=== PATIENT | male | born 1930 | race Caucasian/White ===

== ENCOUNTER 2016-02-23 11:51 | Emergency (ER) | payer MEDICARE, MEDICAID ==
--- NOTE | 2016-02-23 12:19 | ER Document Report ---
ED General - General Mode of Arrival: Medic Information source: Patient TRAVEL OUTSIDE OF THE [place] IN LAST 30 DAYS: No - HPI Patient complains to provider of: Weakness Onset: This morning Onset/Duration: Sudden, Persistent Associated symptoms: Other - Heartburn <ROSETTA MCFARLANE - Last Filed: 02/23/16 12:19> <JODEE JOYA - Last Filed: 02/23/16 16:13> - General Chief Complaint: General Weakness Stated Complaint: WEAKNESS/DIZZY Notes: Patient is an 85-year-old male presenting to the emergency department concerned of generalized weakness onset this morning upon waking. Patient states that he "couldn't get going this morning." Patient states that he thinks that he had breakfast, but he can't remember. Patient also mentioned that he is having some heartburn and increased burping. (ROSETTA MCFARLANE) This 85-year-old demented gentleman is sent from home by EMS for dizzy, weak, epigastric pain, and frequent strong smelling urine. On arrival the patient is alert and reasonably oriented and reports that he just couldn't get going today when it was time to get up. He doesn't recall if he had breakfast or not. He does report some discomfort in his epigastric abdominal region which is reproducible on palpation. This discomfort resolved when he was given a GI cocktail. The patient has been seen here multiple times for his frequent falls. He does state he walks at home on his own, but probably uses a cane, unsure if he uses a walker. (JODEE JOYA) - Related Data Allergies/Adverse Reactions: Sulfa (Sulfonamide Antibiotics) Allergy (Unknown, Verified 02/23/16 12:35) Penicillins Allergy (Verified 02/23/16 12:35) Past Medical History - General Information source: Patient, [facility] Records - Social History Smoking Status: Former Smoker - Claims to have quit smoking "again." Family History: Reviewed & Not Pertinent - Past Medical History Cardiac Medical History: Reports: Hx Hypertension Pulmonary Medical History: Reports: Hx Bronchitis, Hx Pneumonia Renal/ Medical History: Reports: Hx Benign Prostatic Hyperplasia GI Medical History: Reports: Hx Gastroesophageal Reflux Disease Musculoskeltal Medical History: Reports Hx Arthritis - legs, knees Psychiatric Medical History: Reports: Hx Depression Past Surgical History: Reports: Hx Appendectomy, Hx Tonsillectomy - Immunizations Immunizations up to date: Yes Hx Diphtheria, Pertussis, Tetanus Vaccination: Yes - patient states he had the vaccination 3 years ago Hx Pneumococcal Vaccination: 10/03/08 <ROSETTA MCFARLANE - Last Filed: 02/23/16 12:19> Review of Systems - Review of Systems Constitutional: See HPI, Malaise, Weakness EENT: No symptoms reported Cardiovascular: No symptoms reported Respiratory: No symptoms reported Gastrointestinal: No symptoms reported, Other - Heart Burn Genitourinary: No symptoms reported Male Genitourinary: No symptoms reported Musculoskeletal: No symptoms reported Skin: No symptoms reported Hematologic/Lymphatic: No symptoms reported Neurological/Psychological: No symptoms reported -: Yes All other systems reviewed and negative <ROSETTA MCFARLANE - Last Filed: 02/23/16 12:19> Physical Exam - General General appearance: Alert - Demented - HEENT Head: Normocephalic, Atraumatic Eyes: Normal Pupils: PERRL - Respiratory Respiratory status: No respiratory distress Chest status: Nontender Breath sounds: Normal Chest palpation: Normal - Cardiovascular Rhythm: Regular Heart sounds: Normal auscultation Murmur: No - Abdominal Inspection: Normal Distension: No distension Bowel sounds: Normal Tenderness: Tender - Mild epigastric tenderness Organomegaly: No organomegaly - Back Back: Normal, Nontender - Extremities General upper extremity: Normal inspection, Nontender, Normal color, Normal ROM , Normal temperature General lower extremity: Nontender, Edema - Mild edema in bilateral lower extremities., Normal color, Normal temperature - Neurological Neuro grossly intact: Yes Cognition: Confused [place] Coma Scale Eye Opening: Spontaneous Ori Coma Scale Verbal: Oriented Ori Coma Scale Motor: Obeys Commands [place] Coma Scale Total: 15 Speech: Normal - Psychological Associated symptoms: Normal affect, Normal mood - Skin Skin Temperature: Warm Skin Moisture: Dry Skin Color: Normal <ROSETTA MCFARLANE - Last Filed: 02/23/16 12:19> Course <ROSETTA MCFARLANE - Last Filed: 02/23/16 12:19> - Laboratory Result Diagrams: 02/23/16 12:25 02/23/16 12:25 - Diagnostic Test Radiology reviewed: Image reviewed, Reports reviewed - Mild persistent airways disease in the left lateral costophrenic sulcus. This most likely represents atelectasis. - EKG Interpretation by Me EKG shows normal: Sinus rhythm, Bertha, Intervals, QRS Complexes, ST-T Waves Rate: Normal - 55 Heart block present: 1st Degree When compared to previous EKG there are: No significant change <JODEE JOYA - Last Filed: 02/23/16 16:13> - Re-evaluation Re-evalutation: 02/23/16 15:25 The gallbladder ultrasound was unremarkable. The patient reports that he felt much better in the epigastrium after the GI cocktail. It is not tender to palpate at this time. He does continued to belch occasionally. The lipase of 449 is much higher than his baseline which seems to run between 100 and 150. Clinically he does not have pancreatitis. 02/23/16 16:11 The PCT got the patient up to walk around and he did reasonably well. Patient states she states she'll be okay when he gets home. (JODEE JOYA) - Vital Signs Vital signs: Temp Pulse Resp BP Pulse Ox 20 138/89 H 95 02/23/16 13:31 02/23/16 13:31 02/23/16 13:31 - Laboratory Laboratory results interpreted by me: 02/23/16 02/23/16 12:25 12:25 Hgb 12.5 L RDW 16.1 H BUN 29 H Creatinine 1.62 H Est GFR ( Amer) 49 L Est GFR (Non-Af Amer) 41 L AST 13 L ALT 11 L Creatine Kinase 28 L Total Protein 6.2 L Albumin 3.4 L Lipase 449.0 H Discharge <ROSETTA MCFARLANE - Last Filed: 02/23/16 12:19> <JODEE JOYA - Last Filed: 02/23/16 16:13> - Discharge Clinical Impression: Weakness Dementia Qualifiers: Dementia type: unspecified type Dementia behavioral disturbance: without behavioral disturbance Qualified Code(s): F03.90 - Unspecified dementia without behavioral disturbance GERD (gastroesophageal reflux disease) Qualifiers: Esophagitis presence: esophagitis presence not specified Qualified Code(s): K21.9 - Gastro-esophageal reflux disease without esophagitis Condition: Stable Disposition: HOME, SELF-CARE Additional Instructions: Reflux Disease (GERD): Gastro-Esophageal Reflux Disease (GERD) is caused by stomach acid refluxing back up into the esophagus. The valve at the end of the esophagus may be weak. This is common in persons with a hiatal hernia. GERD symptoms can include indigestion, chest pain, heartburn, or food "sticking." Certain foods, alcohol, and aspirin can make GERD worse. Treatment depends on the severity. Usually, antacids or acid-suppressing medicines are used. When the esophagus is acutely inflamed, the physician will often prescribe membrane-protective drugs such as Carafate. Some patients benefit from medication such as Reglan that tightens the valve at the top of the stomach. Avoid those foods that bring on your symptoms. For many people, these foods are coffee, chocolate, onions, garlic, and carbonated drinks. Don't use alcohol, aspirin, caffeine, or tobacco. Don't eat late at night -- within 4 hours of bedtime. Don't over-eat. If necessary, elevate the head of your bed about 4 inches so that stomach acid will not roll up into your esophagus. Call the doctor if you develop severe chest pain, inability to swallow fluids, fever, or worsening symptoms. Weakness: We did not find a definite cause for your weakness. This may require further medical tests. Weakness can be caused by infection, physical exhaustion , rapid weight loss, dehydration, or medicine side effects. Diseases of the muscles, heart, nerves, and blood vessels can make you weak. Sometimes the problem is simply depression or lack of exercise. You should get plenty of rest. Unless the doctor tells you otherwise, it's usually best to add short periods of regular mild exercise. Eat a nutritious diet with multiple small, low-sugar meals. If symptoms continue, additional medical evaluation will be necessary. Be sure to follow up as instructed. If you become very dizzy, nauseated, or feel like you're going to faint, lie down right away. Wait until the symptoms have passed before you get up again. Stand up slowly. Call the doctor or return if you develop chest pain, abdominal pain, severe headache, irregular heartbeat or very fast pulse, confusion, vision problems, fever, muscular pain, or any other new symptom. EAT A BLAND DIET. DRINK PLENTY OF FLUIDS. TAKE ANTI-ACIDS BETWEEN MEALS AND AT BEDTIME FOR A FEW DAYS. REST. FOLLOW UP WITH YOUR DOCTOR THIS WEEK IF NOT IMPROVING. RETURN TO THE EMERGENCY ROOM IF ANY NEW OR WORSENING SYMPTOMS. Referrals: ISAIAS OSORIO MD [Primary Care Provider] - Follow up as needed Scribe Attestation: 02/23/16 16:13 I personally performed the services described in the documentation, reviewed and edited the documentation which was dictated to the scribe in my presence, and it accurately records my words and actions. (JODEE JOYA) Scribe Documentation <ROSETTA MCFARLANE - Last Filed: 02/23/16 12:19> <JODEE JOYA - Last Filed: 02/23/16 16:13> - Scribe Written by Scribe:: JODEE JOYA MD, SCRIBE 02/23/16 1245 Acting as scribe for: Dr. Joya (ROSETTA MCFARLANE) (JODEE JOYA)
[2016-02-23] MEDS ORDERED: MAG HYDROX/AL HYDROX/SIMETH SUSP 30 ML UDCUP PO ONE ×2 (12:20→15:21)
[2016-02-23] MEDS ORDERED: LIDOCAINE 2% VISCOUS SOLN 20 ML UDCUP PO ONE ×2 (12:20→15:21)
[2016-02-23 12:53] LABS: ABSOLUTE EOSINOPHILS # (AUTO) 0.1 10^3/uL (0.0-0.6); ABSOLUTE LYMPHOCYTES (AUTO) 1.6 10^3/uL (0.5-4.7); ABSOLUTE MONOCYTES (AUTO) 0.8 10^3/uL (0.1-1.4); ABSOLUTE NEUT (AUTO) 5.7 10^3/uL (1.7-8.2); BASOPHILS % (AUTO) 0.5 % (0-2); HEMATOCRIT 38.7 % (37.9-51.0); HEMOGLOBIN 12.5 g/dL (13.5-17.0); HGB HCT DIFFERENCE -1.2; LYMPHOCYTES % (AUTO) 18.9 % (13-45); MEAN CORPUSCULAR HEMOGLOBIN 27.2 pg (27.0-33.4); MEAN CORPUSCULAR HGB CONC 32.4 g/dL (32.0-36.0); MEAN CORPUSCULAR VOLUME 84 fl (80-97); MONOCYTES % (AUTO) 10.1 % (3-13); RED BLOOD COUNT 4.61 10^6/uL (4.35-5.55); RED CELL DISTRIBUTION WIDTH 16.1 % (11.5-14.0); SEGMENTED NEUTROPHILS % (AUTO) 69.5 % (42-78); WHITE BLOOD COUNT 8.2 10^3/uL (4.0-10.5)
[2016-02-23 13:08] LABS: ALANINE AMINOTRANSFERASE 11 U/L (21-72); ALBUMIN 3.4 g/dL (3.5-5.0); ALKALINE PHOSPHATASE 59 U/L (38-126); ANION GAP 11 (5-19); ASPARTATE AMINO TRANSFERASE 13 U/L (17-59); BILIRUBIN,TOTAL 0.6 mg/dL (0.2-1.3); BLOOD UREA NITROGEN 29 mg/dL (7-20); CARBON DIOXIDE 23 mmol/L (22-30); CHLORIDE 106 mmol/L (98-107); CREATINE KINASE 28 U/L (55-170); CREATININE RESULT 1.62 mg/dL (0.52-1.25); GLUCOSE 101 mg/dL (75-110); MAGNESIUM 1.9 mg/dL (1.6-2.3); POTASSIUM 4.1 mmol/L (3.6-5.0); SODIUM 139.9 mmol/L (137-145); TOTAL PROTEIN 6.2 g/dL (6.3-8.2)
[2016-02-23 13:19] LABS: CREATINE KINASE MB 0.39 ng/mL (<4.55); TROPONIN I 0.013 ng/mL
[2016-02-23 13:48] LABS: APPEARANCE,URINE SLIGHTLY-CLOUDY; BILIRUBIN,URINE NEGATIVE (NEGATIVE); GLUCOSE, URINE NEGATIVE (NEGATIVE); KETONES,URINE NEGATIVE (NEGATIVE); LEUKOCYTE ESTERASE,URINE NEGATIVE (NEGATIVE); NITRITE,URINE NEGATIVE (NEGATIVE); PROTEIN,URINE NEGATIVE (NEGATIVE); UROBILINOGEN,URINE NEGATIVE mg/dL (<2.0)
[2016-02-23 16:41] VITALS: BP 150/98
--- NOTE | 2016-02-24 10:12 | EKG REPORT ---
SEVERITY:- ABNORMAL ECG - SINUS RHYTHM FIRST DEGREE AV BLOCK : Confirmed by: Alexia Reyes MD 24-Feb-2016 10:11:39
== END 2016-02-23 17:33 | disposition home or self-care (01) ==
LOC: ER 11:51
DX: R53.1 Weakness (principal); K21.9 Gastro-esophageal reflux disease without esophagitis; F03.90 Unspecified dementia, unspecified severity, without behavioral disturbance, psychotic disturbance, mood disturbance, and anxiety; R42 Dizziness and giddiness; R10.13 Epigastric pain; I10 Essential (primary) hypertension; Z88.2 Allergy status to sulfonamides; Z88.0 Allergy status to penicillin
CPT/HCPCS: 93005; 99285; 36415; 87040; 82553; 82550; 83690; 83735; 85025; 80053; 81001; 84484; 71010; 76705; 93010; J3490

== ENCOUNTER 2016-02-23 18:36 | Inpatient (IN) | payer MEDICARE, MEDICAID ==
--- NOTE | 2016-02-23 19:00 | ER Document Report ---
ED Fall - General Chief Complaint: Fall Stated Complaint: FALL HEAD PAIN Time seen by provider: 18:59 Mode of Arrival: Medic Information source: Patient TRAVEL OUTSIDE OF THE [place] IN LAST 30 DAYS: No - HPI Patient complains to provider of: fall Occurred: Just prior to arrival Where: Home Location of injury/pain: Head, Hip Quality of pain: Achy Severity: Mild Pain Level: 2 Notes: Patient is an 85-year-old male with a history of multiple falls recently who presents to the emergency room via EMS for a fall this evening, patient cannot recall how he fell, he does state he had a brief period of loss of consciousness lasting 1-2 seconds, he was actually just discharged from this emergency room for complaints of generalized weakness and had a full workup earlier in the day, he denies pain other than his head from the fall, however on physical exam he does report some tenderness in the left pelvis, patient denies a headache, no nausea or vomiting, he does report some epigastric abdominal pain as well which is more chronic in nature, patient lives at home with his 70+-year-old brother - Related data Allergies/Adverse Reactions: Sulfa (Sulfonamide Antibiotics) Allergy (Unknown, Verified 02/23/16 12:35) Penicillins Allergy (Verified 02/23/16 12:35) Past Medical History - General Information source: Patient - Social History Smoking Status: Former Smoker Family History: Reviewed & Not Pertinent - Past Medical History Cardiac Medical History: Reports: Hx Hypertension Denies: Hx Heart Murmur Pulmonary Medical History: Reports: Hx Bronchitis, Hx Pneumonia Denies: Hx Tuberculosis Neurological Medical History: Denies: Hx Seizures Renal/ Medical History: Reports: Hx Benign Prostatic Hyperplasia GI Medical History: Reports: Hx Gastroesophageal Reflux Disease Musculoskeltal Medical History: Reports Hx Arthritis - legs, knees Psychiatric Medical History: Reports: Hx Depression Past Surgical History: Reports: Hx Appendectomy, Hx Tonsillectomy - Immunizations Immunizations up to date: Yes Hx Diphtheria, Pertussis, Tetanus Vaccination: Yes - patient states he had the vaccination 3 years ago Hx Pneumococcal Vaccination: 10/03/08 Review of Systems - Review of Systems Constitutional: No symptoms reported EENT: No symptoms reported Cardiovascular: No symptoms reported Respiratory: No symptoms reported Gastrointestinal: No symptoms reported Genitourinary: No symptoms reported Male Genitourinary: No symptoms reported Musculoskeletal: See HPI Skin: No symptoms reported Hematologic/Lymphatic: No symptoms reported Neurological/Psychological: No symptoms reported -: Yes All other systems reviewed and negative Physical Exam - Vital signs Vitals: Pulse Ox 96 02/23/16 18:53 Interpretation: Normal - General General appearance: Appears well, Alert - HEENT Head: Normocephalic, Atraumatic Eyes: Normal Conjunctiva: Normal Extraocular movements intact: Yes Eyelashes: Normal Pupils: PERRL Sinus: Normal Nasal: Normal Mucous membranes: Dry Neck: Other - Left cervical paraspinal muscle tenderness - Respiratory Respiratory status: No respiratory distress Chest status: Nontender Breath sounds: Normal Chest palpation: Normal - Cardiovascular Rhythm: Regular Heart sounds: Normal auscultation Murmur: No - Abdominal Inspection: Normal Distension: No distension Bowel sounds: Normal Tenderness: Nontender Organomegaly: No organomegaly - Back Back: Normal, Nontender - Extremities General upper extremity: Normal inspection, Nontender, Normal color, Normal ROM , Normal temperature General lower extremity: Normal color, Normal temperature. No: Heriberto's sign Hip: Tender - Tender to palpate over her left hip/pelvis - Neurological Neuro grossly intact: Yes Cognition: Normal Orientation: AAOx4 [place] Coma Scale Eye Opening: Spontaneous [place] Coma Scale Verbal: Oriented [place] Coma Scale Motor: Obeys Commands [place] Coma Scale Total: 15 Speech: Normal Motor strength normal: LUE, RUE, LLE, RLE Sensory: Normal - Psychological Associated symptoms: Normal affect, Normal mood - Skin Skin Temperature: Warm Skin Moisture: Dry Skin Color: Normal Course - Re-evaluation Re-evalutation: 02/23/16 22:14 Patient unable to recall how he fell today, he seems quite confused in the emergency room and has difficulty following directions, labs are consistent with renal insufficiency, imaging shows nothing acute but patient appears to have a an acute encephalopathy as he was much more oriented when he was seen earlier in the day by previous provider according to the chart then, patient was discussed with the physician covering for the primary care provider who agrees that patient should be admitted for further evaluation and treatment of acute encephalopathy with possible plan for placement in a SNF facility as it is currently unsafe to send him home at the present time - Vital Signs Vital signs: Temp Pulse Resp BP Pulse Ox 18 176/101 H 97 02/23/16 19:17 02/23/16 19:17 02/23/16 19:17 - Laboratory Result Diagrams: 02/23/16 19:35 02/23/16 19:35 Laboratory results interpreted by me: 02/23/16 02/23/16 19:35 19:35 Hgb 13.1 L RDW 15.7 H BUN 31 H Creatinine 1.66 H Est GFR ( Amer) 48 L Est GFR (Non-Af Amer) 39 L AST 15 L ALT 15 L Total Protein 6.1 L Albumin 3.2 L - Diagnostic Test Radiology reviewed: Image reviewed, Reports reviewed Discharge - Discharge Clinical Impression: Acute encephalopathy, Acute on chronic renal insufficiency, Hypertensive urgency Condition: Fair Disposition: ADMITTED INPATIENT Admitting Provider: Heather Unit Admitted: Medical Floor Referrals: ISAIAS OSORIO MD [Primary Care Provider] - Follow up as needed
[2016-02-23 19:45] LABS: ABSOLUTE EOSINOPHILS # (AUTO) 0.1 10^3/uL (0.0-0.6); ABSOLUTE LYMPHOCYTES (AUTO) 1.3 10^3/uL (0.5-4.7); ABSOLUTE MONOCYTES (AUTO) 0.8 10^3/uL (0.1-1.4); ABSOLUTE NEUT (AUTO) 7.3 10^3/uL (1.7-8.2); BASOPHILS % (AUTO) 0.4 % (0-2); HEMATOCRIT 39.8 % (37.9-51.0); HEMOGLOBIN 13.1 g/dL (13.5-17.0); HGB HCT DIFFERENCE -0.5; LYMPHOCYTES % (AUTO) 13.8 % (13-45); MEAN CORPUSCULAR HEMOGLOBIN 27.7 pg (27.0-33.4); MEAN CORPUSCULAR HGB CONC 32.9 g/dL (32.0-36.0); MEAN CORPUSCULAR VOLUME 84 fl (80-97); MONOCYTES % (AUTO) 8.2 % (3-13); RED BLOOD COUNT 4.74 10^6/uL (4.35-5.55); RED CELL DISTRIBUTION WIDTH 15.7 % (11.5-14.0); SEGMENTED NEUTROPHILS % (AUTO) 76.6 % (42-78); WHITE BLOOD COUNT 9.5 10^3/uL (4.0-10.5)
[2016-02-23 20:10] LABS: ALANINE AMINOTRANSFERASE 15 U/L (21-72); ALBUMIN 3.2 g/dL (3.5-5.0); ALKALINE PHOSPHATASE 57 U/L (38-126); ANION GAP 10 (5-19); ASPARTATE AMINO TRANSFERASE 15 U/L (17-59); BILIRUBIN,TOTAL 0.6 mg/dL (0.2-1.3); BLOOD UREA NITROGEN 31 mg/dL (7-20); CARBON DIOXIDE 25 mmol/L (22-30); CHLORIDE 106 mmol/L (98-107); CREATININE RESULT 1.66 mg/dL (0.52-1.25); GLUCOSE 102 mg/dL (75-110); POTASSIUM 4.1 mmol/L (3.6-5.0); SODIUM 140.6 mmol/L (137-145); TOTAL PROTEIN 6.1 g/dL (6.3-8.2)
[2016-02-24] MEDS ORDERED: AMLODIPINE BESYLATE 5 MG TABLET PO ONE (01:00)
--- NOTE | 2016-02-24 13:53 | PDOC H&P ---
History of Present Illness Admission Date/PCP: 02/24/16 00:28 ISAIAS OSORIO, Patient complains of: Fall, Head pain History of Present Illness: BETTY RODRIGUEZ is a 85 year old male brought to ED by EMS following incidental fall at home. Patient cannot recall cause of his fall but reported questionable loss of consciousness lasting 1-2 seconds. Patient reported recurrent falls at home in recent past. He does ambulate with cane assistance. Patient admitted to episodes of dizziness. He denied nausea, vomiting, chest pain, difficulty with breathing, headache, or dizziness. Patient denied alcohol or illicit drug usage. He reported some degree of epigastric discomfort. Patient was earlier evaluated at our facility ED on the day of his presentation for generalized weakness and his evaluation during that visit was significant for left pelvic pain and workup was unrevealing. Patient reported persistent weakness and pain in his head following his fall at home. His CT head , cervical spine CT and pelvic X ray were devoid of any acute pathology. In view of his recurrent falls and confusion and inability to follow commands at time of presentation, there was concern for possible encephalopathy. He was subsequently advised hospitalization. Past Medical History Cardiac Medical History: Reports: Hypertension Denies: Heart Murmur Pulmonary Medical History: Reports: Bronchitis, Pneumonia Denies: Tuberculosis Neurological Medical History: Denies: Seizures GI Medical History: Reports: Gastroesophageal Reflux Disease Musculoskeltal Medical History: Reports: Arthritis - legs, knees Psychiatric Medical History: Reports: Depression Hematology: Reports: Anemia Denies: Hemophilia, Sickle Cell Disease Past Surgical History Past Surgical History: Reports: Appendectomy, Tonsillectomy Social History Smoking Status: Former Smoker Cigars Per Day: 4 Number of Years Smokin Frequency of Alcohol Use: Occasional Hx Recreational Drug Use: Yes Drugs: Marijuana Hx Prescription Drug Abuse: No - Advance Directive Resuscitation Status: Full Code Family History Family History: Reviewed & Not Pertinent Parental Family History Reviewed: Yes Children Family History Reviewed: Yes Sibling(s) Family History Reviewed.: Yes Medication/Allergy Home Medications: Carvedilol [Coreg 25 mg Tablet] 1 tab PO Q12 02/24/16 Donepezil HCl [Aricept 5 mg Tablet] 5 mg PO DAILY 02/24/16 Duloxetine HCl [Cymbalta] 60 mg PO Q12 02/24/16 Finasteride [Proscar 5 mg Tablet] 5 mg PO DAILY 02/24/16 Lactase [Fast Acting Lactase] 9,000 unit PO BID 02/24/16 Omeprazole 40 mg PO DAILY 02/24/16 Tamsulosin HCl [Flomax 0.4 mg Cap.sr] 0.4 mg PO DAILY 02/24/16 Allergies/Adverse Reactions: Sulfa (Sulfonamide Antibiotics) Allergy (Unknown, Verified 02/23/16 12:35) Penicillins Allergy (Verified 02/23/16 12:35) Review of Systems Constitutional: ABSENT: as per HPI, anorexia, chills, fatigue, fever(s), headache(s), night sweats, weakness, weight gain, weight loss, other Eyes: ABSENT: as per HPI, visual disturbances, other Ears: ABSENT: as per HPI, hearing changes, other Nose, Mouth, and Throat: ABSENT: as per HPI, headache(s), mouth pain, sore throat, vertigo, other Cardiovascular: ABSENT: as per HPI, chest pain, dyspnea on exertion, edema, orthropnea, palpitations, other Gastrointestinal: PRESENT: abdominal pain - epigastric region discomfort, constipation - occasional, heartburn Genitourinary: PRESENT: other - longstanding incontinent. ABSENT: as per HPI, difficulty urinating, dysuria, hematuria, nocturia Musculoskeletal: PRESENT: deformity, muscle weakness Neurological: PRESENT: abnormal gait - with use of cane, confusion, dizziness, frequent falls, weakness Psychiatric: ABSENT: anxiety, depression, homidical ideation, suicidal ideation Endocrine: PRESENT: as per HPI Hematologic/Lymphatic: ABSENT: as per HPI, easy bleeding, easy bruising, lymphadenopathy, other Allergic/Immunologic: ABSENT: as per HPI, seasonal rhinorrhea, other Physical Exam Vital Signs: Temp Pulse Resp BP Pulse Ox 98.2 F 73 17 149/77 H 99 02/24/16 11:56 02/24/16 11:56 02/24/16 11:56 02/24/16 11:56 02/24/16 11:56 Intake & Output 02/23/16 02/24/16 02/25/16 06:59 06:59 06:59 Intake Total 200 Balance 200 Weight 72 kg General appearance: PRESENT: no acute distress, cooperative, disheveled Head exam: PRESENT: atraumatic, normocephalic Eye exam: PRESENT: conjunctiva pink, EOMI, PERRLA Ear exam: ABSENT: bleeding, drainage, normal external ear exam, TM's normal bilaterally, other Mouth exam: PRESENT: moist Teeth exam: PRESENT: poor dentation Throat exam: ABSENT: post pharyngeal erythema, tonsillar erythema, tonsillar exudate, tonsillogmegaly, other Neck exam: ABSENT: carotid bruit, full ROM, JVD, lymphadenopathy, meningismus, tenderness, thyromegaly, tracheal deviation, tracheostomy, other Respiratory exam: ABSENT: accessory muscle use, chest wall tenderness, clear to auscultation abisai, crackles, decreased breath sounds, prolonged expiratory phas, rales, retraction, rhonchi, stridor, symmetrical, tachypnea, unlabored, wheezes , other Cardiovascular exam: PRESENT: RRR. ABSENT: diastolic murmur, rubs, systolic murmur Pulses: PRESENT: normal dorsalis pedis pul, +2 pedal pulses bilateral Vascular exam: PRESENT: normal capillary refill GI/Abdominal exam: PRESENT: tenderness - minimal RUQ region. ABSENT: ascites, diminished bowel sounds, distended, firm, guarding, hernia, hyperactive bowel sounds, hypoactive bowel sounds, mass, Cerrato's sign, normal bowel sounds, organolmegaly, rebound, rigid, soft, other Extremities exam: PRESENT: full ROM Musculoskeletal exam: PRESENT: deformity - multiple joints arthritis involvement Neurological exam: PRESENT: awake, oriented to place, CN II-XII grossly intact, motor sensory deficit Psychiatric exam: PRESENT: agitated Skin exam: PRESENT: dry, intact, warm. ABSENT: cyanosis, rash Results Laboratory Results: see [facility], lab review was done and contribute to my final clinical decision making. Impressions: Cervical Spine CT 02/23/16 18:59 IMPRESSION: CHRONIC DEGENERATIVE CHANGES. NO ACUTE FINDINGS. Head CT 02/23/16 18:59 IMPRESSION: CHRONIC CHANGES OF ATROPHY AND MICROVASCULAR ISCHEMIA. NO ACUTE PROCESS. Pelvis X-Ray 02/23/16 19:00 IMPRESSION: No significant posttraumatic changes are identified. Findings as noted above Assessment & Plan - Diagnosis (1) BPH (benign prostatic hyperplasia) Qualifiers: Prostatic enlargement morphology: unspecified morphology Is this a current diagnosis for this admission?: YesPlan: Continue on preadmission medication management (2) Osteoarthritis involving multiple joints on both sides of body Is this a current diagnosis for this admission?: YesPlan: Continue on preadmission medication management (3) Depression Qualifiers: Depression Type: major depressive disorder Major depression recurrence : recurrent Major depression episode severity: moderate Is this a current diagnosis for this admission?: YesPlan: Continue on preadmission medication management (4) Acute encephalopathy Is this a current diagnosis for this admission?: YesPlan: See admitting physician orders (5) Acute on chronic renal insufficiency Is this a current diagnosis for this admission?: YesPlan: See admitting physician orders (7) GERD (gastroesophageal reflux disease) Qualifiers: Esophagitis presence: without esophagitis Qualified Code(s): K21.9 - Gastro-esophageal reflux disease without esophagitis Is this a current diagnosis for this admission?: YesPlan: Continue on preadmission medication management - Time Time Spent: 50 to 70 Minutes Medications reviewed and adjusted accordingly: Yes Anticipated discharge: SNF Within: Other - Inpatient Certification Medical Necessity: Need For IV Fluids, Risk of Complication if Not Cared For in Hospital Post Hospital Care: D/C Student Records Coordinator Documentation - Plan Summary Plan Summary: see admitting physician orders
[2016-02-24 14:17] LABS: APPEARANCE,URINE CLEAR; BILIRUBIN,URINE NEGATIVE (NEGATIVE); GLUCOSE, URINE NEGATIVE (NEGATIVE); KETONES,URINE NEGATIVE (NEGATIVE); LEUKOCYTE ESTERASE,URINE NEGATIVE (NEGATIVE); NITRITE,URINE NEGATIVE (NEGATIVE); PROTEIN,URINE NEGATIVE (NEGATIVE); URINE SPECIFIC GRAVITY 1.015; UROBILINOGEN,URINE NEGATIVE mg/dL (<2.0)
[2016-02-24 14:41] LABS: ABSOLUTE BASOPHILS # (AUTO) 0.1 10^3/uL (0.0-0.2); ABSOLUTE EOSINOPHILS # (AUTO) 0.1 10^3/uL (0.0-0.6); ABSOLUTE LYMPHOCYTES (AUTO) 1.8 10^3/uL (0.5-4.7); ABSOLUTE MONOCYTES (AUTO) 0.8 10^3/uL (0.1-1.4); ABSOLUTE NEUT (AUTO) 5.4 10^3/uL (1.7-8.2); BASOPHILS % (AUTO) 0.9 % (0-2); EOSINOPHILS % (AUTO) 1.4 % (0-6); HEMATOCRIT 37.6 % (37.9-51.0); HEMOGLOBIN 11.8 g/dL (13.5-17.0); HGB HCT DIFFERENCE -2.2; LYMPHOCYTES % (AUTO) 21.3 % (13-45); MEAN CORPUSCULAR HEMOGLOBIN 26.6 pg (27.0-33.4); MEAN CORPUSCULAR HGB CONC 31.3 g/dL (32.0-36.0); MEAN CORPUSCULAR VOLUME 85 fl (80-97); MONOCYTES % (AUTO) 10.1 % (3-13); RED BLOOD COUNT 4.42 10^6/uL (4.35-5.55); RED CELL DISTRIBUTION WIDTH 16.4 % (11.5-14.0); SEGMENTED NEUTROPHILS % (AUTO) 66.3 % (42-78); WHITE BLOOD COUNT 8.2 10^3/uL (4.0-10.5)
[2016-02-24 14:48] LABS: PARTIAL THROMBOPLASTIN TIME 27.6 SEC (23.5-35.8)
[2016-02-24 14:55] LABS: ANION GAP 9 (5-19); BLOOD UREA NITROGEN 30 mg/dL (7-20); CALCIUM 8.7 mg/dL (8.4-10.2); CARBON DIOXIDE 24 mmol/L (22-30); CHLORIDE 105 mmol/L (98-107); CREATININE RESULT 1.56 mg/dL (0.52-1.25); GLUCOSE 92 mg/dL (75-110); POTASSIUM 4.1 mmol/L (3.6-5.0); SODIUM 138.4 mmol/L (137-145)
[2016-02-24] MEDS: NORMAL SALINE 1000 ML 1,000 ML IV PRN (15:23)
[2016-02-24] MEDS ORDERED: FINASTERIDE 5 MG TABLET PO ONE (15:30)
[2016-02-24] MEDS ORDERED: DONEPEZIL HCL 5 MG TABLET PO ONE (16:00)
[2016-02-24] MEDS: ACETAMINOPHEN 325 MG TABLET PO PRN ×2 (17:30→22:55)
[2016-02-24] MEDS ORDERED: (PENDING PHARMACY ID) (Carvedilol [Coreg 25 Mg Tablet] 1 TAB) PO SCH (22:00)
[2016-02-24] MEDS: DULOXETINE HCL 30 MG CAPSULE.DR PO SCH (22:55)
[2016-02-24] MEDS: CARVEDILOL 12.5 MG TABLET PO SCH (22:55)
[2016-02-25] MEDS: NORMAL SALINE 1000 ML 1,000 ML IV PRN (06:06)
[2016-02-25] MEDS: LANSOPRAZOLE 30 MG TAB.RAP.DR PO SCH (06:07)
[2016-02-25 07:51] LABS: ABSOLUTE EOSINOPHILS # (AUTO) 0.3 10^3/uL (0.0-0.6); ABSOLUTE LYMPHOCYTES (AUTO) 1.9 10^3/uL (0.5-4.7); ABSOLUTE MONOCYTES (AUTO) 0.6 10^3/uL (0.1-1.4); ABSOLUTE NEUT (AUTO) 3.3 10^3/uL (1.7-8.2); BASOPHILS % (AUTO) 0.6 % (0-2); EOSINOPHILS % (AUTO) 4.7 % (0-6); HEMATOCRIT 37.4 % (37.9-51.0); HEMOGLOBIN 11.7 g/dL (13.5-17.0); HGB HCT DIFFERENCE -2.3; LYMPHOCYTES % (AUTO) 30.8 % (13-45); MEAN CORPUSCULAR HEMOGLOBIN 26.7 pg (27.0-33.4); MEAN CORPUSCULAR HGB CONC 31.3 g/dL (32.0-36.0); MEAN CORPUSCULAR VOLUME 85 fl (80-97); MONOCYTES % (AUTO) 9.5 % (3-13); RED BLOOD COUNT 4.39 10^6/uL (4.35-5.55); RED CELL DISTRIBUTION WIDTH 15.9 % (11.5-14.0); SEGMENTED NEUTROPHILS % (AUTO) 54.4 % (42-78)
[2016-02-25 08:14] LABS: ALANINE AMINOTRANSFERASE 17 U/L (21-72); ALBUMIN 2.5 g/dL (3.5-5.0); ALKALINE PHOSPHATASE 47 U/L (38-126); ANION GAP 8 (5-19); ASPARTATE AMINO TRANSFERASE 10 U/L (17-59); BILIRUBIN,TOTAL 0.2 mg/dL (0.2-1.3); BLOOD UREA NITROGEN 32 mg/dL (7-20); CALCIUM 8.1 mg/dL (8.4-10.2); CARBON DIOXIDE 24 mmol/L (22-30); CHLORIDE 108 mmol/L (98-107); GLUCOSE 95 mg/dL (75-110); MAGNESIUM 2.4 mg/dL (1.6-2.3); PHOSPHORUS 3.7 mg/dL (2.5-4.5); POTASSIUM 4.2 mmol/L (3.6-5.0); SODIUM 140.3 mmol/L (137-145); TOTAL PROTEIN 5.1 g/dL (6.3-8.2)
[2016-02-25] MEDS: ENOXAPARIN SODIUM INJ 30 MG/0.3 ML DISP.SYRIN SUBCUT SCH (08:29)
[2016-02-25] MEDS: FINASTERIDE 5 MG TABLET PO SCH (10:31)
[2016-02-25] MEDS: DONEPEZIL HCL 5 MG TABLET PO SCH (10:31)
[2016-02-25] MEDS: DULOXETINE HCL 30 MG CAPSULE.DR PO SCH ×2 (10:32→22:12)
[2016-02-25] MEDS: CARVEDILOL 12.5 MG TABLET PO SCH ×2 (11:12→22:13)
--- NOTE | 2016-02-25 16:55 | PDOC PROGRESS REPORT ---
Subjective Progress Note for:: 02/25/16 Subjective:: Patient was seen by the bedside, he was admitted yesterday because of fall and acute kidney injury, there is a concern for encephalopathy. I saw him today by the bedside with the brother, his brother lives in the same residence with him, he said he is not sure of the cause of is fall the but I said he was unable to get him of the floor so he called the rescue squad. Physical Exam Vital Signs: Temp Pulse Resp BP Pulse Ox 97.5 F 49 L 18 161/80 H 98 02/25/16 15:35 02/25/16 15:35 02/25/16 15:35 02/25/16 15:35 02/25/16 15:35 Intake & Output 02/24/16 02/25/16 02/26/16 06:59 06:59 06:59 Intake Total 200 2515 600 Output Total 300 Balance 200 2515 300 Weight 72 kg General appearance: PRESENT: no acute distress Eye exam: PRESENT: PERRLA Neck exam: PRESENT: full ROM Respiratory exam: PRESENT: clear to auscultation abisai Cardiovascular exam: PRESENT: +S1, +S2 GI/Abdominal exam: PRESENT: soft Neurological exam: PRESENT: alert Results Laboratory Results: 02/25/16 05:59 02/25/16 05:59 02/25/16 02/25/16 05:59 05:59 WBC 6.0 RBC 4.39 Hgb 11.7 L Hct 37.4 L MCV 85 MCH 26.7 L MCHC 31.3 L RDW 15.9 H Plt Count 160 Seg Neutrophils % 54.4 Lymphocytes % 30.8 Monocytes % 9.5 Eosinophils % 4.7 Basophils % 0.6 Absolute Neutrophils 3.3 Absolute Lymphocytes 1.9 Absolute Monocytes 0.6 Absolute Eosinophils 0.3 Absolute Basophils 0.0 Sodium 140.3 Potassium 4.2 Chloride 108 H Carbon Dioxide 24 Anion Gap 8 BUN 32 H Creatinine 1.60 H Est GFR ( Amer) 50 L Est GFR (Non-Af Amer) 41 L Glucose 95 Calcium 8.1 L Phosphorus 3.7 Magnesium 2.4 H Total Bilirubin 0.2 AST 10 L ALT 17 L Alkaline Phosphatase 47 Total Protein 5.1 L Albumin 2.5 L Impressions: Cervical Spine CT 02/23/16 18:59 IMPRESSION: CHRONIC DEGENERATIVE CHANGES. NO ACUTE FINDINGS. Head CT 02/23/16 18:59 IMPRESSION: CHRONIC CHANGES OF ATROPHY AND MICROVASCULAR ISCHEMIA. NO ACUTE PROCESS. Pelvis X-Ray 02/23/16 19:00 IMPRESSION: No significant posttraumatic changes are identified. Findings as noted above Assessment & Plan - Diagnosis (1) Acute encephalopathy Is this a current diagnosis for this admission?: YesPlan: There is mention of possibility of acute encephalopathy in this patient, MRI head will be requested, EEG be ordered and the may be need for spinal tap (2) Acute kidney injury Is this a current diagnosis for this admission?: YesPlan: There is most likely prerenal
[2016-02-25] MEDS: TAMSULOSIN HCL 0.4 MG CAP.SR.24H PO SCH (18:12)
[2016-02-25] MEDS: NORMAL SALINE 1000 ML 1,000 ML with POTASSIUM CHLORIDE 20 MEQ, MAGNESIUM SULFATE 8 MEQ,... IV PRN ×5 (22:15)
[2016-02-26] MEDS: LANSOPRAZOLE 30 MG TAB.RAP.DR PO SCH (06:16)
[2016-02-26] MEDS: ENOXAPARIN SODIUM INJ 30 MG/0.3 ML DISP.SYRIN SUBCUT SCH (08:20)
[2016-02-26] MEDS: DULOXETINE HCL 30 MG CAPSULE.DR PO SCH ×2 (10:43→21:21)
[2016-02-26] MEDS: DONEPEZIL HCL 5 MG TABLET PO SCH (10:44)
[2016-02-26] MEDS: CARVEDILOL 12.5 MG TABLET PO SCH ×2 (10:48→21:21)
[2016-02-26] MEDS: FINASTERIDE 5 MG TABLET PO SCH (10:48)
[2016-02-26] MEDS: NORMAL SALINE 1000 ML 1,000 ML with POTASSIUM CHLORIDE 20 MEQ, MAGNESIUM SULFATE 8 MEQ,... IV PRN ×5 (18:29)
[2016-02-26] MEDS: TAMSULOSIN HCL 0.4 MG CAP.SR.24H PO SCH (18:31)
[2016-02-27] MEDS: LANSOPRAZOLE 30 MG TAB.RAP.DR PO SCH (05:43)
[2016-02-27] MEDS: DONEPEZIL HCL 5 MG TABLET PO SCH (11:05)
[2016-02-27] MEDS: ENOXAPARIN SODIUM INJ 30 MG/0.3 ML DISP.SYRIN SUBCUT SCH (11:05)
[2016-02-27] MEDS: FINASTERIDE 5 MG TABLET PO SCH (11:06)
[2016-02-27] MEDS: DULOXETINE HCL 30 MG CAPSULE.DR PO SCH ×2 (11:06→21:47)
--- NOTE | 2016-02-27 19:18 | PDOC PROGRESS REPORT ---
Subjective Progress Note for:: 02/26/16 Subjective:: Patient was seen by the bedside, he will need to go to the intermediate for rehabilitation Physical Exam Vital Signs: Temp Pulse Resp BP Pulse Ox 97.5 F 56 L 16 153/82 H 99 02/27/16 16:16 02/27/16 16:16 02/27/16 16:16 02/27/16 16:16 02/27/16 16:16 Intake & Output 02/26/16 02/27/16 02/28/16 06:59 06:59 06:59 Intake Total 3636 3117 1250 Output Total 303 Balance 3333 3117 1250 Weight 72.6 kg General appearance: PRESENT: no acute distress Eye exam: PRESENT: PERRLA Respiratory exam: PRESENT: clear to auscultation abisai Cardiovascular exam: PRESENT: +S1, +S2 GI/Abdominal exam: PRESENT: soft Neurological exam: PRESENT: alert Results Laboratory Results: 02/25/16 05:59 02/25/16 05:59 Impressions: Cervical Spine CT 02/23/16 18:59 IMPRESSION: CHRONIC DEGENERATIVE CHANGES. NO ACUTE FINDINGS. Head CT 02/23/16 18:59 IMPRESSION: CHRONIC CHANGES OF ATROPHY AND MICROVASCULAR ISCHEMIA. NO ACUTE PROCESS. Pelvis X-Ray 02/23/16 19:00 IMPRESSION: No significant posttraumatic changes are identified. Findings as noted above Head MRI 02/25/16 00:00 IMPRESSION: ATROPHY AND CHRONIC MICRO-VASCULAR ISCHEMIC CHANGES. No acute changes. Other findings as noted above. Renal Ultrasound 02/25/16 00:00 IMPRESSION: Mild hydronephrosis of the right kidney. No other significant finding. Assessment & Plan - Diagnosis (1) Acute encephalopathy Is this a current diagnosis for this admission?: Yes (2) Acute kidney injury Is this a current diagnosis for this admission?: Yes (3) Chronic kidney disease, stage 3 Is this a current diagnosis for this admission?: Yes
[2016-02-27] MEDS: CARVEDILOL 12.5 MG TABLET PO SCH ×2 (20:06→21:46)
[2016-02-27] MEDS: TAMSULOSIN HCL 0.4 MG CAP.SR.24H PO SCH (20:08)
[2016-02-27] MEDS: NORMAL SALINE 1000 ML 1,000 ML with POTASSIUM CHLORIDE 20 MEQ, MAGNESIUM SULFATE 8 MEQ,... IV PRN ×5 (21:47)
[2016-02-27 22:17] LABS: FOLATE 9.75 ng/mL (>2.76)
[2016-02-28] MEDS ORDERED: ASCORBIC ACID 500 MG TABLET PO ONE (03:00)
[2016-02-28] MEDS ORDERED: FERROUS SULFATE 325 MG TABLET PO ONE (03:00)
[2016-02-28] MEDS: LANSOPRAZOLE 30 MG TAB.RAP.DR PO SCH (05:36)
--- NOTE | 2016-02-28 07:56 | EEG PRO FEE REPORT ---
EEG INTERPRETATION PATIENT NAME: BETTY RODRIGUEZ ROOM#: [id number] ORDER#: [id number] DATE OF STUDY: 02/25/16 : 1930 REFERRING MD: ISAIAS OSORIO M.D. DIAGNOSIS: Encephalopathy and seizures MEDICATIONS: Tylenol, Carvadol,Cymbalta, Lovenox, IV fluid REPORT This is a 16 channel EEG recording with a channel of EKG. This is done during wakefulness, early stages of sleep, photic stimulation. The background activity is 6-7 cycles per second, well formed and reactive alpha best seen in the posterior electrodes along with beta 18-22 cycles per second, intermittent, nonlocalized or sustained slower forms. Mild artifact is seen. Hyperventilation, photic stimulation did not alter the tracing significantly. In the early stages of sleep, more generalized slowing is seen. IMPRESSION This is an abnormal EEG due to the presence of generalized diffuse slowing. This is a nonspecific finding and could be from encephalopathy from a variety of causes including postictal, ischemic, hypoxic, etc. No epileptiform discharges seen. INTERPRETING PHYSICIAN: WENDY DRAKE M.D. /: JOSSELIN TT: [id number] ID: [id number] /: [id number] TD: [id number] JOB: [id number] cc:Shaista TDOD M.D. > MTDD
[2016-02-28] MEDS: DONEPEZIL HCL 5 MG TABLET PO SCH (09:50)
[2016-02-28] MEDS: FINASTERIDE 5 MG TABLET PO SCH (09:50)
[2016-02-28] MEDS: ENOXAPARIN SODIUM INJ 30 MG/0.3 ML DISP.SYRIN SUBCUT SCH (09:50)
[2016-02-28] MEDS: DULOXETINE HCL 30 MG CAPSULE.DR PO SCH ×2 (09:50→22:25)
[2016-02-28] MEDS: CARVEDILOL 12.5 MG TABLET PO SCH ×2 (09:50→22:25)
[2016-02-28] MEDS: FERROUS SULFATE 325 MG TABLET PO SCH (09:50)
[2016-02-28] MEDS: ASCORBIC ACID 500 MG TABLET PO SCH ×2 (10:00→17:11)
[2016-02-28] MEDS: TAMSULOSIN HCL 0.4 MG CAP.SR.24H PO SCH (17:11)
--- NOTE | 2016-02-28 21:12 | PDOC PROGRESS REPORT ---
Subjective Progress Note for:: 02/27/16 Subjective:: Patient was seen by the bedside, he will need intensive physical therapy/ rehabilitation in a alf facility. EEG was done and it showed the presence of generalized diffuse slowing, specific finding could be from encephalopathy from variety of causes Physical Exam Vital Signs: Temp Pulse Resp BP Pulse Ox 97.5 F 56 L 16 153/82 H 99 02/27/16 16:16 02/27/16 16:16 02/27/16 16:16 02/27/16 16:16 02/27/16 16:16 Intake & Output 02/26/16 02/27/16 02/28/16 06:59 06:59 06:59 Intake Total 3636 3117 1250 Output Total 303 Balance 3333 3117 1250 Weight 72.6 kg General appearance: PRESENT: no acute distress Eye exam: PRESENT: PERRLA Respiratory exam: PRESENT: clear to auscultation abisai Cardiovascular exam: PRESENT: +S1, +S2 GI/Abdominal exam: PRESENT: soft Neurological exam: PRESENT: alert Results Laboratory Results: 02/25/16 05:59 02/25/16 05:59 Impressions: Cervical Spine CT 02/23/16 18:59 IMPRESSION: CHRONIC DEGENERATIVE CHANGES. NO ACUTE FINDINGS. Head CT 02/23/16 18:59 IMPRESSION: CHRONIC CHANGES OF ATROPHY AND MICROVASCULAR ISCHEMIA. NO ACUTE PROCESS. Pelvis X-Ray 02/23/16 19:00 IMPRESSION: No significant posttraumatic changes are identified. Findings as noted above Head MRI 02/25/16 00:00 IMPRESSION: ATROPHY AND CHRONIC MICRO-VASCULAR ISCHEMIC CHANGES. No acute changes. Other findings as noted above. Renal Ultrasound 02/25/16 00:00 IMPRESSION: Mild hydronephrosis of the right kidney. No other significant finding. Assessment & Plan - Diagnosis (1) Acute encephalopathy Is this a current diagnosis for this admission?: YesPlan: EEG suggest nonspecific encephalopathy, MRI brain showed atrophy with high signal intensity lesions scattered throughout the white matter (2) Acute kidney injury Is this a current diagnosis for this admission?: Yes (3) Chronic kidney disease, stage 3 Is this a current diagnosis for this admission?: Yes (4) Dementia Qualifiers: Dementia type: Alzheimer's disease Alzheimer's disease onset: late- onset Dementia behavioral disturbance: without behavioral disturbance Qualified Code(s): G30.1 - Alzheimer's disease with late onset; F02.80 - Dementia in other diseases classified elsewhere without behavioral disturbance Is this a current diagnosis for this admission?: Yes
--- NOTE | 2016-02-28 21:17 | PDOC PROGRESS REPORT ---
Subjective Progress Note for:: 02/28/16 Subjective:: Patient was seen by the bedside, EEG suggest encephalopathy, MRI showed atrophy of the brain Physical Exam Vital Signs: Temp Pulse Resp BP Pulse Ox 97.6 F 56 L 16 147/74 H 100 02/28/16 20:00 02/28/16 20:00 02/28/16 20:00 02/28/16 20:00 02/28/16 20:00 Intake & Output 02/27/16 02/28/16 02/29/16 06:59 06:59 06:59 Intake Total 3117 2520 1800 Balance 3117 2520 1800 Weight 72.6 kg 72.4 kg General appearance: PRESENT: no acute distress Cardiovascular exam: PRESENT: +S1, +S2 Neurological exam: PRESENT: alert Results Laboratory Results: 02/25/16 05:59 02/25/16 05:59 02/27/16 20:38 Iron 53 TIBC 319 % Saturation 17 Ferritin 18.30 Vitamin B12 321.0 Folate 9.75 Impressions: Cervical Spine CT 02/23/16 18:59 IMPRESSION: CHRONIC DEGENERATIVE CHANGES. NO ACUTE FINDINGS. Head CT 02/23/16 18:59 IMPRESSION: CHRONIC CHANGES OF ATROPHY AND MICROVASCULAR ISCHEMIA. NO ACUTE PROCESS. Pelvis X-Ray 02/23/16 19:00 IMPRESSION: No significant posttraumatic changes are identified. Findings as noted above Head MRI 02/25/16 00:00 IMPRESSION: ATROPHY AND CHRONIC MICRO-VASCULAR ISCHEMIC CHANGES. No acute changes. Other findings as noted above. Renal Ultrasound 02/25/16 00:00 IMPRESSION: Mild hydronephrosis of the right kidney. No other significant finding. Assessment & Plan - Diagnosis (1) Acute encephalopathy Is this a current diagnosis for this admission?: Yes (2) Acute kidney injury Is this a current diagnosis for this admission?: Yes (3) Chronic kidney disease, stage 3 Is this a current diagnosis for this admission?: Yes (4) Dementia Qualifiers: Dementia type: Alzheimer's disease Alzheimer's disease onset: late- onset Dementia behavioral disturbance: without behavioral disturbance Qualified Code(s): G30.1 - Alzheimer's disease with late onset; F02.81 - Dementia in other diseases classified elsewhere with behavioral disturbance Is this a current diagnosis for this admission?: Yes
[2016-02-29] MEDS: LANSOPRAZOLE 30 MG TAB.RAP.DR PO SCH (06:34)
[2016-02-29] MEDS: ENOXAPARIN SODIUM INJ 30 MG/0.3 ML DISP.SYRIN SUBCUT SCH (08:28)
[2016-02-29] MEDS: NORMAL SALINE 1000 ML 1,000 ML with POTASSIUM CHLORIDE 20 MEQ, MAGNESIUM SULFATE 8 MEQ,... IV PRN ×5 (08:28)
[2016-02-29 10:50] LABS: PTH INTACT 75 pg/mL (15-65); TRANSFERRIN 221 mg/dL (200-370)
[2016-02-29] MEDS: CARVEDILOL 12.5 MG TABLET PO SCH ×2 (11:20→21:37)
[2016-02-29] MEDS: DONEPEZIL HCL 5 MG TABLET PO SCH (11:20)
[2016-02-29] MEDS: FERROUS SULFATE 325 MG TABLET PO SCH (11:20)
[2016-02-29] MEDS: ASCORBIC ACID 500 MG TABLET PO SCH ×2 (11:21→17:42)
[2016-02-29] MEDS: FINASTERIDE 5 MG TABLET PO SCH (11:22)
[2016-02-29] MEDS: DULOXETINE HCL 30 MG CAPSULE.DR PO SCH ×2 (11:42→21:37)
[2016-02-29] MEDS: TAMSULOSIN HCL 0.4 MG CAP.SR.24H PO SCH (17:42)
[2016-03-01] MEDS: LANSOPRAZOLE 30 MG TAB.RAP.DR PO SCH (05:23)
[2016-03-01] MEDS: NORMAL SALINE 1000 ML 1,000 ML with POTASSIUM CHLORIDE 20 MEQ, MAGNESIUM SULFATE 8 MEQ,... IV PRN ×5 (13:03)
[2016-03-01] MEDS: DULOXETINE HCL 30 MG CAPSULE.DR PO SCH ×2 (13:14→21:38)
[2016-03-01] MEDS: DONEPEZIL HCL 5 MG TABLET PO SCH (13:14)
[2016-03-01] MEDS: ASCORBIC ACID 500 MG TABLET PO SCH ×2 (13:18→17:55)
[2016-03-01] MEDS: CARVEDILOL 12.5 MG TABLET PO SCH ×2 (13:19→21:37)
[2016-03-01] MEDS: FERROUS SULFATE 325 MG TABLET PO SCH (13:19)
[2016-03-01] MEDS: ENOXAPARIN SODIUM INJ 30 MG/0.3 ML DISP.SYRIN SUBCUT SCH (13:19)
[2016-03-01] MEDS: FINASTERIDE 5 MG TABLET PO SCH (13:21)
[2016-03-01] MEDS: TAMSULOSIN HCL 0.4 MG CAP.SR.24H PO SCH (17:55)
--- NOTE | 2016-03-01 19:38 | PDOC PROGRESS REPORT ---
Subjective Progress Note for:: 02/29/16 Subjective:: Patient we need placement in [facility] home for rehabilitation Physical Exam Vital Signs: Temp Pulse Resp BP Pulse Ox 97.5 F 54 L 18 127/73 H 98 03/01/16 15:44 03/01/16 15:44 03/01/16 15:44 03/01/16 15:44 03/01/16 15:44 Intake & Output 02/29/16 03/01/16 03/02/16 06:59 06:59 06:59 Intake Total 2900 2508 940 Balance 2900 2508 940 Weight 72.4 kg 72.4 kg General appearance: PRESENT: no acute distress Eye exam: PRESENT: PERRLA Respiratory exam: PRESENT: clear to auscultation abisai Cardiovascular exam: PRESENT: +S1, +S2 GI/Abdominal exam: PRESENT: soft Neurological exam: PRESENT: alert Results Laboratory Results: 02/25/16 05:59 02/25/16 05:59 Impressions: Cervical Spine CT 02/23/16 18:59 IMPRESSION: CHRONIC DEGENERATIVE CHANGES. NO ACUTE FINDINGS. Head CT 02/23/16 18:59 IMPRESSION: CHRONIC CHANGES OF ATROPHY AND MICROVASCULAR ISCHEMIA. NO ACUTE PROCESS. Pelvis X-Ray 02/23/16 19:00 IMPRESSION: No significant posttraumatic changes are identified. Findings as noted above Head MRI 02/25/16 00:00 IMPRESSION: ATROPHY AND CHRONIC MICRO-VASCULAR ISCHEMIC CHANGES. No acute changes. Other findings as noted above. Renal Ultrasound 02/25/16 00:00 IMPRESSION: Mild hydronephrosis of the right kidney. No other significant finding. Assessment & Plan - Diagnosis (1) Acute encephalopathy Is this a current diagnosis for this admission?: Yes (2) Acute kidney injury Is this a current diagnosis for this admission?: Yes (3) Chronic kidney disease, stage 3 Is this a current diagnosis for this admission?: Yes (4) Dementia Qualifiers: Dementia type: Alzheimer's disease Alzheimer's disease onset: late- onset Dementia behavioral disturbance: without behavioral disturbance Qualified Code(s): G30.1 - Alzheimer's disease with late onset; F02.81 - Dementia in other diseases classified elsewhere with behavioral disturbance Is this a current diagnosis for this admission?: Yes
--- NOTE | 2016-03-01 19:39 | PDOC PROGRESS REPORT ---
Subjective Progress Note for:: 03/01/16 Subjective:: Patient was seen by the bedside. No new complaints. No bed offers yet Physical Exam Vital Signs: Temp Pulse Resp BP Pulse Ox 97.5 F 54 L 18 127/73 H 98 03/01/16 15:44 03/01/16 15:44 03/01/16 15:44 03/01/16 15:44 03/01/16 15:44 Intake & Output 02/29/16 03/01/16 03/02/16 06:59 06:59 06:59 Intake Total 2900 2508 940 Balance 2900 2508 940 Weight 72.4 kg 72.4 kg General appearance: PRESENT: no acute distress Eye exam: PRESENT: PERRLA Respiratory exam: PRESENT: clear to auscultation abisai Cardiovascular exam: PRESENT: +S1, +S2 GI/Abdominal exam: PRESENT: soft Results Laboratory Results: 02/25/16 05:59 02/25/16 05:59 Impressions: Cervical Spine CT 02/23/16 18:59 IMPRESSION: CHRONIC DEGENERATIVE CHANGES. NO ACUTE FINDINGS. Head CT 02/23/16 18:59 IMPRESSION: CHRONIC CHANGES OF ATROPHY AND MICROVASCULAR ISCHEMIA. NO ACUTE PROCESS. Pelvis X-Ray 02/23/16 19:00 IMPRESSION: No significant posttraumatic changes are identified. Findings as noted above Head MRI 02/25/16 00:00 IMPRESSION: ATROPHY AND CHRONIC MICRO-VASCULAR ISCHEMIC CHANGES. No acute changes. Other findings as noted above. Renal Ultrasound 02/25/16 00:00 IMPRESSION: Mild hydronephrosis of the right kidney. No other significant finding. Assessment & Plan - Diagnosis (1) Acute encephalopathy Is this a current diagnosis for this admission?: Yes (2) Acute kidney injury Is this a current diagnosis for this admission?: Yes (3) Chronic kidney disease, stage 3 Is this a current diagnosis for this admission?: Yes (4) Dementia Qualifiers: Dementia type: Alzheimer's disease Alzheimer's disease onset: late- onset Dementia behavioral disturbance: without behavioral disturbance Qualified Code(s): G30.1 - Alzheimer's disease with late onset; F02.81 - Dementia in other diseases classified elsewhere with behavioral disturbance Is this a current diagnosis for this admission?: Yes
[2016-03-02] MEDS: LANSOPRAZOLE 30 MG TAB.RAP.DR PO SCH (05:03)
[2016-03-02] MEDS: CARVEDILOL 12.5 MG TABLET PO SCH ×2 (11:43→22:29)
[2016-03-02] MEDS: DULOXETINE HCL 30 MG CAPSULE.DR PO SCH ×2 (11:44→22:29)
[2016-03-02] MEDS: DONEPEZIL HCL 5 MG TABLET PO SCH (11:44)
[2016-03-02] MEDS: FERROUS SULFATE 325 MG TABLET PO SCH (11:44)
[2016-03-02] MEDS: ASCORBIC ACID 500 MG TABLET PO SCH ×2 (11:45→17:44)
[2016-03-02] MEDS: ENOXAPARIN SODIUM INJ 30 MG/0.3 ML DISP.SYRIN SUBCUT SCH (11:45)
[2016-03-02] MEDS: FINASTERIDE 5 MG TABLET PO SCH (11:59)
[2016-03-02] MEDS: TAMSULOSIN HCL 0.4 MG CAP.SR.24H PO SCH (17:44)
--- NOTE | 2016-03-02 19:13 | PDOC PROGRESS REPORT ---
Subjective Progress Note for:: 03/02/16 Subjective:: Patient was seen by the bedside. No new complaints. No bed offers yet Physical Exam Vital Signs: Temp Pulse Resp BP Pulse Ox 97.6 F 52 L 20 154/75 H 99 03/02/16 11:49 03/02/16 14:00 03/02/16 11:49 03/02/16 11:49 03/02/16 11:49 Intake & Output 03/01/16 03/02/16 03/03/16 06:59 06:59 06:59 Intake Total 2508 2183 1420 Balance 2508 2183 1420 Weight 72.4 kg General appearance: PRESENT: no acute distress Eye exam: PRESENT: PERRLA Respiratory exam: PRESENT: clear to auscultation abisai Cardiovascular exam: PRESENT: +S1, +S2 GI/Abdominal exam: PRESENT: soft Results Laboratory Results: 02/25/16 05:59 02/25/16 05:59 Impressions: Cervical Spine CT 02/23/16 18:59 IMPRESSION: CHRONIC DEGENERATIVE CHANGES. NO ACUTE FINDINGS. Head CT 02/23/16 18:59 IMPRESSION: CHRONIC CHANGES OF ATROPHY AND MICROVASCULAR ISCHEMIA. NO ACUTE PROCESS. Pelvis X-Ray 02/23/16 19:00 IMPRESSION: No significant posttraumatic changes are identified. Findings as noted above Head MRI 02/25/16 00:00 IMPRESSION: ATROPHY AND CHRONIC MICRO-VASCULAR ISCHEMIC CHANGES. No acute changes. Other findings as noted above. Renal Ultrasound 02/25/16 00:00 IMPRESSION: Mild hydronephrosis of the right kidney. No other significant finding. Assessment & Plan - Diagnosis (1) Acute encephalopathy Is this a current diagnosis for this admission?: Yes (2) Acute kidney injury Is this a current diagnosis for this admission?: Yes (3) Chronic kidney disease, stage 3 Is this a current diagnosis for this admission?: Yes (4) Dementia Qualifiers: Dementia type: Alzheimer's disease Alzheimer's disease onset: late- onset Dementia behavioral disturbance: without behavioral disturbance Qualified Code(s): G30.1 - Alzheimer's disease with late onset; F02.81 - Dementia in other diseases classified elsewhere with behavioral disturbance Is this a current diagnosis for this admission?: Yes
[2016-03-03] MEDS: LANSOPRAZOLE 30 MG TAB.RAP.DR PO SCH (05:19)
[2016-03-03] MEDS: ASCORBIC ACID 500 MG TABLET PO SCH ×2 (10:39→17:56)
[2016-03-03] MEDS: CARVEDILOL 12.5 MG TABLET PO SCH ×2 (10:39→22:49)
[2016-03-03] MEDS: DONEPEZIL HCL 5 MG TABLET PO SCH (10:39)
[2016-03-03] MEDS: DULOXETINE HCL 30 MG CAPSULE.DR PO SCH ×2 (10:40→22:54)
[2016-03-03] MEDS: NORMAL SALINE 1000 ML 1,000 ML with POTASSIUM CHLORIDE 20 MEQ, MAGNESIUM SULFATE 8 MEQ,... IV PRN ×5 (10:40)
[2016-03-03] MEDS: FERROUS SULFATE 325 MG TABLET PO SCH (10:40)
[2016-03-03] MEDS: ENOXAPARIN SODIUM INJ 30 MG/0.3 ML DISP.SYRIN SUBCUT SCH (10:43)
[2016-03-03] MEDS: FINASTERIDE 5 MG TABLET PO SCH (10:43)
[2016-03-03] MEDS: TAMSULOSIN HCL 0.4 MG CAP.SR.24H PO SCH (17:56)
--- NOTE | 2016-03-03 18:05 | PDOC TRANSFER SUMMARY ---
General - Admit/Disc Date/PCP Admission Date/Primary Care Provider: 02/24/16 00:28 ISAIAS OSORIO, Discharge Date: 03/03/16 - Discharge Diagnosis (1) Encephalopathy, unspecified Is this a current diagnosis for this admission?: Yes (2) Chronic kidney disease, stage 3 Is this a current diagnosis for this admission?: Yes (3) Dementia Is this a current diagnosis for this admission?: Yes (4) Secondary hyperparathyroidism (of renal origin) Is this a current diagnosis for this admission?: Yes (5) Hypovitaminosis D Is this a current diagnosis for this admission?: Yes (7) Depression Is this a current diagnosis for this admission?: Yes (8) Osteoarthritis involving multiple joints on both sides of body Is this a current diagnosis for this admission?: Yes - Additional Information Resuscitation Status: Full Code Home Medications: Carvedilol [Coreg 25 mg Tablet] 1 tab PO Q12 02/24/16 Donepezil HCl [Aricept 5 mg Tablet] 5 mg PO DAILY 02/24/16 Duloxetine HCl [Cymbalta] 60 mg PO Q12 02/24/16 Finasteride [Proscar 5 mg Tablet] 5 mg PO DAILY 02/24/16 Omeprazole 40 mg PO DAILY 02/24/16 Tamsulosin HCl [Flomax 0.4 mg Cap.sr] 0.4 mg PO DAILY 02/24/16 Acetaminophen [Tylenol 325 mg Tablet] 650 mg PO Q4HP PRN #0 tablet 03/03/16 Ascorbic Acid [Vitamin C 500 mg Tablet] 500 mg PO BID #0 tablet 03/03/16 Calcium Carbonate 500 mg PO TID #0 tablet 03/03/16 Cholecalciferol (Vitamin D3) [Vitamin D] 50,000 unit PO Q7D #0 capsule 03/03/16 Ferrous Sulfate [Feosol 325 mg Tablet] 325 mg PO DAILY #0 tablet 03/03/16 Thiamine HCl [Thiamine 100 mg Tablet] 100 mg PO DAILY #30 tablet 03/03/16 History of Present Illness Admission Date/PCP: 02/24/16 00:28 ISAIAS OSORIO, History of Present Illness: Patient 85-year-old male, he fell at home, the circumstances of the fall is not clear, he was confused to time, place and and person. Encephalopathy was considered the as a cause of his symptoms. EEG of the brain was done and it was abnormal, it showed generalized diffuse slowing dual the finding is nonspecific but could be from encephalopathy. MRI of the brain was done as well. He showed atrophy of the brain with high signal intensity lesions scattered throughout the white matter patient had elevated BUN/creatinine and that was a concern for acute kidney injury, there was stigmata of chronic kidney disease, there was hypocalcemia, the PTH was elevated, consistent with secondary hyper parathyroidism. A lumbar puncture was not done for evaluation of the encephalopathy, because it was considered unnecessary at this time. Patient had baseline dementia, he has chronic kidney disease stage III on the serum vitamin D was low as well. Patient is started on vitamin D supplementation. He also have history of alcohol abuse/use and because of that history.He is started on thiamine. The plan is to transfer in to rehabilitation and also probably long-term care in the half-way. He presently stays with his brother and the brother is concern about his frequent falls lately Hospital Course Hospital Course: Patient was admitted because of concern for encephalopathy and acute kidney injury. MRI of the brain was done and also EEG, EEG suggest encephalopathy, he was treated with IV fluid because of concern for dehydration and prerenal acute kidney injury. He has a baseline chronic kidney disease stage 3, despite hydration with fluid that was no change in the kidney function. Patient recently have increase risk of fall and the plan is to transfer him to half-way for rehabilitation and probably long-term care Physical Exam Vital Signs: Temp Pulse Resp BP Pulse Ox 98.1 F 56 L 14 131/81 H 99 03/03/16 16:13 03/03/16 16:13 03/03/16 16:13 03/03/16 16:13 03/03/16 16:13 Intake & Output 03/02/16 03/03/16 03/04/16 06:59 06:59 06:59 Intake Total 2183 2437 Balance 2183 2437 General appearance: PRESENT: no acute distress Eye exam: PRESENT: PERRLA Neck exam: PRESENT: full ROM Respiratory exam: PRESENT: clear to auscultation abisai Cardiovascular exam: PRESENT: +S1, +S2 GI/Abdominal exam: PRESENT: soft Musculoskeletal exam: PRESENT: full ROM Neurological exam: PRESENT: alert Results Laboratory Results: 02/25/16 05:59 02/25/16 05:59 Impressions: Cervical Spine CT 02/23/16 18:59 IMPRESSION: CHRONIC DEGENERATIVE CHANGES. NO ACUTE FINDINGS. Head CT 02/23/16 18:59 IMPRESSION: CHRONIC CHANGES OF ATROPHY AND MICROVASCULAR ISCHEMIA. NO ACUTE PROCESS. Pelvis X-Ray 02/23/16 19:00 IMPRESSION: No significant posttraumatic changes are identified. Findings as noted above Head MRI 02/25/16 00:00 IMPRESSION: ATROPHY AND CHRONIC MICRO-VASCULAR ISCHEMIC CHANGES. No acute changes. Other findings as noted above. Renal Ultrasound 02/25/16 00:00 IMPRESSION: Mild hydronephrosis of the right kidney. No other significant finding.
[2016-03-04] MEDS: LANSOPRAZOLE 30 MG TAB.RAP.DR PO SCH (05:13)
[2016-03-04] MEDS: CARVEDILOL 12.5 MG TABLET PO SCH ×2 (10:47→22:01)
[2016-03-04] MEDS: FERROUS SULFATE 325 MG TABLET PO SCH (10:47)
[2016-03-04] MEDS: ENOXAPARIN SODIUM INJ 30 MG/0.3 ML DISP.SYRIN SUBCUT SCH (10:48)
[2016-03-04] MEDS: ASCORBIC ACID 500 MG TABLET PO SCH ×2 (10:48→17:44)
[2016-03-04] MEDS: DULOXETINE HCL 30 MG CAPSULE.DR PO SCH ×2 (10:48→22:01)
[2016-03-04] MEDS: DONEPEZIL HCL 5 MG TABLET PO SCH (10:51)
[2016-03-04] MEDS: FINASTERIDE 5 MG TABLET PO SCH (10:51)
[2016-03-04] MEDS: TAMSULOSIN HCL 0.4 MG CAP.SR.24H PO SCH (17:44)
[2016-03-05] MEDS: LANSOPRAZOLE 30 MG TAB.RAP.DR PO SCH (05:26)
[2016-03-05 11:26] VITALS: BP 128/81
[2016-03-05] MEDS: DULOXETINE HCL 30 MG CAPSULE.DR PO SCH (13:42)
[2016-03-05] MEDS: DONEPEZIL HCL 5 MG TABLET PO SCH (13:42)
[2016-03-05] MEDS: ASCORBIC ACID 500 MG TABLET PO SCH (13:43)
[2016-03-05] MEDS: CARVEDILOL 12.5 MG TABLET PO SCH (13:43)
[2016-03-05] MEDS: FERROUS SULFATE 325 MG TABLET PO SCH (13:44)
[2016-03-05] MEDS: ENOXAPARIN SODIUM INJ 30 MG/0.3 ML DISP.SYRIN SUBCUT SCH (13:44)
[2016-03-05] MEDS: FINASTERIDE 5 MG TABLET PO SCH (13:44)
== END 2016-03-05 14:18 | DRG 684 ==
LOC: ER 18:36 → EH 22:35 → UNDOADMIN 22:35 → 4W 23:57 → EH 23:57 → 4W 02-24 00:28 → EH 02-24 00:28
PROVIDERS: ADMIT Internal Medicine; ATTEND Internal Medicine
DX: N17.9 Acute kidney failure, unspecified (principal); I12.9 Hypertensive chronic kidney disease with stage 1 through stage 4 chronic kidney disease, or unspecified chronic kidney disease; N18.3 Chronic kidney disease, stage 3 (moderate); N25.81 Secondary hyperparathyroidism of renal origin; E55.9 Vitamin D deficiency, unspecified; E83.51 Hypocalcemia; R29.6 Repeated falls; E86.0 Dehydration; F10.10 Alcohol abuse, uncomplicated; F32.9 Major depressive disorder, single episode, unspecified; Y92.009 Unspecified place in unspecified non-institutional (private) residence as the place of occurrence of the external cause; K21.9 Gastro-esophageal reflux disease without esophagitis; M13.862 Other specified arthritis, left knee; M13.861 Other specified arthritis, right knee; D64.9 Anemia, unspecified; G30.1 Alzheimer's disease with late onset; F02.80 Dementia in other diseases classified elsewhere, unspecified severity, without behavioral disturbance, psychotic disturbance, mood disturbance, and anxiety; N13.30 Unspecified hydronephrosis; N40.0 Benign prostatic hyperplasia without lower urinary tract symptoms; I16.0 Hypertensive urgency; Z91.81 History of falling; Z87.891 Personal history of nicotine dependence; Z79.899 Other long term (current) drug therapy; Z88.2 Allergy status to sulfonamides; Z88.0 Allergy status to penicillin
CPT/HCPCS: 36415; 70450; 70551; 71010; 72125; 72170; 76705; 76770; 80048; 80053; 81001; 82140; 82306; 82550; 82553; 82607; 82728; 82746; 83540; 83550; 83690; 83735; 83970; 84100; 84466; 84484; 85025; 85045; 85610; 85730; 87040; 87086; 93005; 93010; 95819; 99285; G8978-GP; G8979-GP; J1650; J3411; J3475; J3480; J3490; J7030

== ENCOUNTER 2017-09-29 15:30 | Observation (INO) | payer MEDICARE, MEDICAID ==
--- NOTE | 2017-09-29 16:00 | ER Document Report ---
ED General - General Chief Complaint: HYPOTENSION Stated Complaint: FAINTED Time Seen by Provider: 09/29/17 15:46 Mode of Arrival: Medic Information source: Patient, Emergency Med Personnel, [facility] Records, Outside Facility Records Cannot obtain history due to: Dementia Notes: 86-year-old male with hypertension, Alzheimer's disease, chronic kidney disease , chronic pain, depression presents via EMS after a syncopal episode at [facility]. Patient cannot recall the events that happened prior to arriving to the hospital. Nursing report from [place] states that the patient was standing at the desk when he had a sudden onset chest pain and then collapsed to the floor. Without intervention patient came to and began speaking. He is alert and oriented 2 which is his baseline. He currently has no complaints but is asking for coffee and "weed". Patient currently denies headache, neck pain, nausea, vomiting, chest pain, shortness of breath. Reports no recent illness. Patient had an initial blood pressure per EMS of 50/ 30. TRAVEL OUTSIDE OF THE [place] IN LAST 30 DAYS: No - HPI Onset: Just prior to arrival Onset/Duration: Sudden Quality of pain: No pain Associated symptoms: Chest pain - Resolved, Other - Syncope Exacerbated by: Denies Relieved by: Denies Similar symptoms previously: No Recently seen / treated by doctor: No - Related Data Allergies/Adverse Reactions: Sulfa (Sulfonamide Antibiotics) Allergy (Unknown, Verified 02/23/16 12:35) Penicillins Allergy (Verified 02/23/16 12:35) Past Medical History - General Information source: Patient, Emergency Med Personnel, [facility] Records, Outside Facility Records Cannot obtain history due to: Dementia - Social History Smoking Status: Unknown if Ever Smoked Frequency of alcohol use: None Drug Abuse: None Lives with: Snf Family History: Reviewed & Not Pertinent Patient has suicidal ideation: No Patient has homicidal ideation: No - Past Medical History Cardiac Medical History: Reports: Hx Hypertension Denies: Hx Heart Murmur Pulmonary Medical History: Reports: Hx Bronchitis, Hx Pneumonia Denies: Hx Tuberculosis Neurological Medical History: Denies: Hx Seizures Renal/ Medical History: Reports: Hx Benign Prostatic Hyperplasia GI Medical History: Reports: Hx Gastroesophageal Reflux Disease. Denies: Hx Pancreatitis Musculoskeletal Medical History: Reports Hx Arthritis - legs, knees Psychiatric Medical History: Reports: Hx Depression Past Surgical History: Reports: Hx Appendectomy, Hx Tonsillectomy - Immunizations Immunizations up to date: Yes Hx Diphtheria, Pertussis, Tetanus Vaccination: Yes - patient states he had the vaccination 3 years ago Hx Pneumococcal Vaccination: 10/03/08 Review of Systems - Review of Systems -: Yes ROS unobtainable due to patient's medical condition Physical Exam - Vital signs Vitals: Resp Pulse Ox 15 95 09/29/17 15:43 09/29/17 15:43 - Notes Notes: PHYSICAL EXAMINATION: GENERAL: Well-appearing, well-nourished and in no acute distress. HEAD: Atraumatic, normocephalic. EYES: Pupils equal round and reactive to light, extraocular movements intact, sclera anicteric, conjunctiva are normal. ENT: Nares patent, oropharynx clear without exudates. Moist mucous membranes. NECK: Normal range of motion, supple without lymphadenopathy LUNGS: Breath sounds clear to auscultation bilaterally and equal. No wheezes rales or rhonchi. HEART: Regular rate irregular rhythm without murmurs ABDOMEN: Soft, nontender, nondistended abdomen. No guarding, no rebound. No masses appreciated. Musculoskeletal: Normal range of motion, no pitting or edema. No cyanosis. NEUROLOGICAL: Cranial nerves grossly intact. Normal speech, normal gait. Normal sensory, motor exams PSYCH: Normal mood, normal affect. SKIN: Warm, Dry, normal turgor, no rashes or lesions noted. Course - Re-evaluation Re-evalutation: Laboratory 09/29/17 09/29/17 09/29/17 17:02 17:02 17:02 WBC 6.9 RBC 3.62 L Hgb 10.7 L Hct 32.3 L MCV 89 MCH 29.4 MCHC 33.0 RDW 14.8 H Plt Count 220 Seg Neutrophils % 66.8 Lymphocytes % 25.6 Monocytes % 5.8 Eosinophils % 1.3 Basophils % 0.5 Absolute Neutrophils 4.6 Absolute Lymphocytes 1.8 Absolute Monocytes 0.4 Absolute Eosinophils 0.1 Absolute Basophils 0.0 VBG pH VBG pCO2 VBG HCO3 VBG Base Excess Sodium Cancelled Potassium Cancelled Chloride Cancelled Carbon Dioxide Cancelled Anion Gap Cancelled BUN Cancelled Creatinine Cancelled Est GFR ( Amer) Cancelled Est GFR (Non-Af Amer) Cancelled Glucose Cancelled Calcium Cancelled Magnesium Cancelled Total Bilirubin Cancelled Direct Bilirubin Cancelled Neonat Total Bilirubin Cancelled Neonat Direct Bilirubin Cancelled Neonat Indirect Bili Cancelled AST Cancelled ALT Cancelled Alkaline Phosphatase Cancelled Creatine Kinase Cancelled CK-MB (CK-2) 0.50 Troponin I < 0.012 NT-Pro-B Natriuret Pep 1240 H Total Protein Cancelled Albumin Cancelled Urine Color Urine Appearance Urine pH Ur Specific Pearson Urine Protein Urine Glucose (UA) Urine Ketones Urine Blood Urine Nitrite Urine Bilirubin Urine Urobilinogen Ur Leukocyte Esterase Urine WBC (Auto) Urine RBC (Auto) U Hyaline Cast (Auto) Urine Mucus (Auto) Urine Ascorbic Acid 09/29/17 09/29/17 09/29/17 17:02 18:08 18:12 WBC RBC Hgb Hct MCV MCH MCHC RDW Plt Count Seg Neutrophils % Lymphocytes % Monocytes % Eosinophils % Basophils % Absolute Neutrophils Absolute Lymphocytes Absolute Monocytes Absolute Eosinophils Absolute Basophils VBG pH 7.36 VBG pCO2 44.6 VBG HCO3 24.7 VBG Base Excess -0.9 Sodium 140.4 Potassium 4.4 Chloride 107 Carbon Dioxide 25 Anion Gap 8 BUN 21 H Creatinine 1.25 Est GFR ( Amer) > 60 Est GFR (Non-Af Amer) 55 L Glucose 88 Calcium 8.3 L Magnesium 2.1 Total Bilirubin 0.6 Direct Bilirubin 0.6 H Neonat Total Bilirubin Not Reportable Neonat Direct Bilirubin Not Reportable Neonat Indirect Bili Not Reportable AST 9 L ALT 15 L Alkaline Phosphatase 50 Creatine Kinase < 20 L CK-MB (CK-2) Troponin I NT-Pro-B Natriuret Pep Total Protein 5.4 L Albumin 2.7 L Urine Color YELLOW Urine Appearance CLEAR Urine pH 5.0 Ur Specific Pearson 1.021 Urine Protein NEGATIVE Urine Glucose (UA) NEGATIVE Urine Ketones NEGATIVE Urine Blood NEGATIVE Urine Nitrite NEGATIVE Urine Bilirubin NEGATIVE Urine Urobilinogen NEGATIVE Ur Leukocyte Esterase NEGATIVE Urine WBC (Auto) 1 Urine RBC (Auto) 1 U Hyaline Cast (Auto) 4 Urine Mucus (Auto) OCC Urine Ascorbic Acid NEGATIVE 09/29/17 23:02 WBC RBC Hgb Hct MCV MCH MCHC RDW Plt Count Seg Neutrophils % Lymphocytes % Monocytes % Eosinophils % Basophils % Absolute Neutrophils Absolute Lymphocytes Absolute Monocytes Absolute Eosinophils Absolute Basophils VBG pH VBG pCO2 VBG HCO3 VBG Base Excess Sodium Potassium Chloride Carbon Dioxide Anion Gap BUN Creatinine Est GFR ( Amer) Est GFR (Non-Af Amer) Glucose Calcium Magnesium Total Bilirubin Direct Bilirubin Neonat Total Bilirubin Neonat Direct Bilirubin Neonat Indirect Bili AST ALT Alkaline Phosphatase Creatine Kinase < 20 L CK-MB (CK-2) Troponin I NT-Pro-B Natriuret Pep Total Protein Albumin Urine Color Urine Appearance Urine pH Ur Specific Pearson Urine Protein Urine Glucose (UA) Urine Ketones Urine Blood Urine Nitrite Urine Bilirubin Urine Urobilinogen Ur Leukocyte Esterase Urine WBC (Auto) Urine RBC (Auto) U Hyaline Cast (Auto) Urine Mucus (Auto) Urine Ascorbic Acid Cervical Spine CT 09/29/17 16:12 IMPRESSION: No acute posttraumatic changes. Degenerative disc disease. No interval change since 02/23/2016. Chest X-Ray 09/29/17 16:12 IMPRESSION: No acute cardiopulmonary disease suggested. Findings as above. Head CT 09/29/17 16:12 IMPRESSION: MILD CHRONIC CHANGES OF ATROPHY AND MICROVASCULAR ISCHEMIA. NO ACUTE PROCESS. EVIDENCE OF ACUTE STROKE: NO. 09/29/17 23:44 86-year-old male with hypertension, Alzheimer's disease, chronic kidney disease , chronic pain, depression presents via EMS after a syncopal episode at [facility]. Patient cannot recall the events that happened prior to arriving to the hospital. Nursing report from [place] states that the patient was standing at the desk when he had a sudden onset chest pain and then collapsed to the floor. Without intervention patient came to and began speaking. He is alert and oriented 2 which is his baseline. He currently has no complaints but is asking for coffee and "weed". Patient currently denies headache, neck pain, nausea, vomiting, chest pain, shortness of breath. Reports no recent illness. Patient had an initial blood pressure per EMS of 50/ 30. Upon arrival patient was placed on registered nurse cardiac and EKG was obtained. Patient's repeat blood pressure was within normal limits. He denies all physical complaints but cannot recall what happened leading up to his hospitalization. He is alert and oriented 2 which appears to be his baseline. Laboratory findings include an elevated BNP and a chest x-ray that shows a left-sided pleural effusion. 09/29/17 23:44 09/29/17 23:45 - Vital Signs Vital signs: Temp Pulse Resp BP Pulse Ox 97.8 F 54 L 17 125/90 H 94 09/29/17 21:31 09/29/17 17:42 09/29/17 22:01 09/29/17 22:01 09/29/17 21:31 - Laboratory Result Diagrams: 09/29/17 17:02 09/29/17 18:12 Laboratory results interpreted by me: 09/29/17 09/29/17 09/29/17 17:02 17:02 18:12 RBC 3.62 L Hgb 10.7 L Hct 32.3 L RDW 14.8 H BUN 21 H Est GFR (Non-Af Amer) 55 L Calcium 8.3 L Direct Bilirubin 0.6 H AST 9 L ALT 15 L Creatine Kinase < 20 L NT-Pro-B Natriuret Pep 1240 H Total Protein 5.4 L Albumin 2.7 L - Diagnostic Test Radiology reviewed: Image reviewed, Reports reviewed - EKG Interpretation by Me EKG shows normal: Sinus rhythm Rate: Normal Rhythm: NSR When compared to previous EKG there are: No significant change Discharge - Discharge Clinical Impression: Syncope and collapse, Pleural effusion, Elevated brain natriuretic peptide (BNP ) level, Hypoalbuminemia, History of fall, Loss of consciousness Chest pain Qualifiers: Chest pain type: unspecified Qualified Code(s): R07.9 - Chest pain, unspecified Dementia Qualifiers: Dementia type: Alzheimer's disease Alzheimer's disease onset: unspecified onset Dementia behavioral disturbance: without behavioral disturbance Qualified Code(s): G30.9 - Alzheimer's disease, unspecified Atrial fibrillation Qualifiers: Atrial fibrillation type: chronic Qualified Code(s): I48.2 - Chronic atrial fibrillation Condition: Good Disposition: ADMITTED OBSERVATION [facility] Admitted: Telemetry
--- NOTE | 2017-09-29 16:06 | RADIOLOGY REPORT (SQ) ---
EXAM DESCRIPTION: CHEST SINGLE VIEW COMPLETED DATE/TIME: 09/29/2017 3:58 pm REASON FOR STUDY: Pain, syncope COMPARISON: 02/23/2016 EXAM PARAMETERS: NUMBER OF VIEWS: One view. TECHNIQUE: Single frontal radiographic view of the chest acquired. RADIATION DOSE: NA LIMITATIONS: None. FINDINGS: LUNGS AND PLEURA: There is ill-defined opacification in the left base. The left hemidiaph ragm is indistinct. Cannot exclude left pleural effusion. MEDIASTINUM AND HILAR STRUCTURES: No masses. Contour normal. HEART AND VASCULAR STRUCTURES: Borderline heart size. No pulmonary edema. BONES: No acute findings. HARDWARE: None in the chest. OTHER: No other significant finding. IMPRESSION: Borderline heart size with no pulmonary edema. There appears to be a left pleural effus ion. Cannot exclude left lower lobe pneumonia. TECHNICAL DOCUMENTATION: JOB ID: [id number] [employer] All Rights Reserved Reading location - IP/workstation name: [email or web address]
--- NOTE | 2017-09-29 16:44 | RADIOLOGY REPORT (SQ) ---
EXAM DESCRIPTION: CT HEAD WITHOUT COMPLETED DATE/TIME: 09/29/2017 4:34 pm REASON FOR STUDY: syncope COMPARISON: 02/23/2016 TECHNIQUE: Axial images acquired through the brain without intravenous contrast. Images reviewed wi th bone, brain and subdural windows. Additional sagittal and coronal reconstructions were generated. Images stored on PACS. All CT scanners at this facility use dose modulation, iterative reconstruction, and/or weight based d osing when appropriate to reduce radiation dose to as low as reasonably achievable (ALARA). [facility]: Dose Right [facility]: CareDose [facility]: Dose Right [facility]: Teradose 4D [facility]: Smart [employer]URU RADIATION DOSE: CT Rad equipment meets quality standard of care and radiation dose reduction techniq ues were employed. CTDIvol: 53.2 mGy. DLP: 1070 mGy-cm. mGy. LIMITATIONS: None. FINDINGS: VENTRICLES: Prominent. CEREBRUM: No masses. No hemorrhage. No midline shift. Areas of low density in the white matter mos t likely due to chronic micro-vascular ischemic change. No evidence for acute infarction. CEREBELLUM: No masses. No hemorrhage. No alteration of density. No evidence for acute infarction. EXTRAAXIAL SPACES: Mild age-related involutional change. No fluid collections. No masses. ORBITS AND GLOBE: No intra- or extraconal masses. Normal contour of globe without masses. CALVARIUM: No fracture. PARANASAL SINUSES: No fluid or mucosal thickening. SOFT TISSUES: No mass or hematoma. OTHER: No other significant finding. IMPRESSION: MILD CHRONIC CHANGES OF ATROPHY AND MICROVASCULAR ISCHEMIA. NO ACUTE PROCESS. EVIDENCE OF ACUTE STROKE: NO. TECHNICAL DOCUMENTATION: JOB ID: [id number] Quality ID # [id number]: Final reports with documentation of one or more dose reduction techniques (e.g., Au tomated exposure control, adjustment of the mA and/or kV according to patient size, use of iterative reconstruction technique) 2010 [employer]- All Rights Reserved Reading location - IP/workstation name: [email or web address]
--- NOTE | 2017-09-29 16:48 | RADIOLOGY REPORT (SQ) ---
EXAM DESCRIPTION: CT CERVICAL SPINE WITHOUT COMPLETED DATE/TIME: 09/29/2017 4:34 pm REASON FOR STUDY: syncope COMPARISON: 02/23/2016 TECHNIQUE: Axial images acquired through the cervical spine without intravenous contrast. Images re viewed with lung, soft tissue and bone windows. Reconstructed coronal and sagittal MPR images review ed. Images stored on PACS. All CT scanners at this facility use dose modulation, iterative reconstruction, and/or weight based d osing when appropriate to reduce radiation dose to as low as reasonably achievable (ALARA). [facility]: Dose Right [facility]: CareDose [facility]: Dose Right [facility]: Teradose 4D [facility]: Smart [employer] RADIATION DOSE: CT Rad equipment meets quality standard of care and radiation dose reduction techniq ues were employed. CTDIvol: 18.5 mGy. DLP: 386 mGy-cm. mGy. LIMITATIONS: None. FINDINGS: ALIGNMENT: Anatomic. MINERALIZATION: Normal. VERTEBRAL BODIES: No fractures or dislocation. DISCS: Multilevel disc space narrowing unchanged. FACETS, LATERAL MASSES, POSTERIOR ELEMENTS: Lateral facet arthropathy. No fractures. HARDWARE: None in the spine. VISUALIZED RIBS: No fractures. LUNG APICES AND SOFT TISSUES: No significant or acute findings. OTHER: No other significant finding. IMPRESSION: No acute posttraumatic changes. Degenerative disc disease. No interval change since . TECHNICAL DOCUMENTATION: JOB ID: [id number] Quality ID # [id number]: Final reports with documentation of one or more dose reduction techniques (e.g., Au tomated exposure control, adjustment of the mA and/or kV according to patient size, use of iterative reconstruction technique) 2010 [employer]- All Rights Reserved Reading location - IP/workstation name: [email or web address]
--- NOTE | 2017-09-29 16:52 | RADIOLOGY REPORT (SQ) ---
EXAM DESCRIPTION: CHEST 2 VIEWS COMPLETED DATE/TIME: 09/29/2017 4:38 pm REASON FOR STUDY: syncope COMPARISON: 2017. TECHNIQUE: Frontal and lateral radiographic views of the chest acquired. NUMBER OF VIEWS: Two view. LIMITATIONS: Extra life-support artifact, particularly over the left lower chest. FINDINGS: LUNGS AND PLEURA: Allowing for external artifact and probable mild chronic left basilar sc arring, generally clear. No pneumothorax. MEDIASTINUM AND HILAR STRUCTURES: No masses or contour abnormalities. HEART AND VASCULAR STRUCTURES: Stable heart size. No evidence of failure. BONES: Limited assessment. Osteopenic. Bilateral suspected chronic rotator cuff tears. HARDWARE: None in the chest. OTHER: No other significant finding. IMPRESSION: No acute cardiopulmonary disease suggested. Findings as above. TECHNICAL DOCUMENTATION: JOB ID: [id number] [employer]- All Rights Reserved Reading location - IP/workstation name: [email or web address]
[2017-09-29 17:20] LABS: ABSOLUTE EOSINOPHILS # (AUTO) 0.1 10^3/uL (0.0-0.6); ABSOLUTE LYMPHOCYTES (AUTO) 1.8 10^3/uL (0.5-4.7); ABSOLUTE MONOCYTES (AUTO) 0.4 10^3/uL (0.1-1.4); ABSOLUTE NEUT (AUTO) 4.6 10^3/uL (1.7-8.2); BASOPHILS % (AUTO) 0.5 % (0-2); EOSINOPHILS % (AUTO) 1.3 % (0-6); HEMATOCRIT 32.3 % (37.9-51.0); HEMOGLOBIN 10.7 g/dL (13.5-17.0); LYMPHOCYTES % (AUTO) 25.6 % (13-45); MEAN CORPUSCULAR HEMOGLOBIN 29.4 pg (27.0-33.4); MEAN CORPUSCULAR VOLUME 89 fl (80-97); MONOCYTES % (AUTO) 5.8 % (3-13); PLATELET COUNT 220 10^3/uL (150-450); RED BLOOD COUNT 3.62 10^6/uL (4.35-5.55); RED CELL DISTRIBUTION WIDTH 14.8 % (11.5-14.0); SEGMENTED NEUTROPHILS % (AUTO) 66.8 % (42-78); TOTAL CELLS COUNTED % (AUTO) 100 %; WHITE BLOOD COUNT 6.9 10^3/uL (4.0-10.5)
[2017-09-29 17:23] LABS: VENOUS BLOOD BASE EXCESS -0.9 mmol/L; VENOUS BLOOD HCO3 24.7 mmol/L (20-32); VENOUS BLOOD PCO2 44.6 mmHg (35-63); VENOUS BLOOD PH 7.36 (7.30-7.42)
[2017-09-29 17:53] LABS: NT PRO BNP 1240 pg/mL (<450)
[2017-09-29 17:54] LABS: TROPONIN I < 0.012 ng/mL
[2017-09-29 18:28] LABS: APPEARANCE,URINE CLEAR; BILIRUBIN,URINE NEGATIVE (NEGATIVE); COLOR,URINE YELLOW; GLUCOSE, URINE NEGATIVE (NEGATIVE); KETONES,URINE NEGATIVE (NEGATIVE); LEUKOCYTE ESTERASE,URINE NEGATIVE (NEGATIVE); NITRITE,URINE NEGATIVE (NEGATIVE); PROTEIN,URINE NEGATIVE (NEGATIVE); URINE SPECIFIC GRAVITY 1.021; UROBILINOGEN,URINE NEGATIVE mg/dL (<2.0)
[2017-09-29 18:41] LABS: ALANINE AMINOTRANSFERASE 15 U/L (21-72); ALBUMIN 2.7 g/dL (3.5-5.0); ALKALINE PHOSPHATASE 50 U/L (38-126); ANION GAP 8 (5-19); ASPARTATE AMINO TRANSFERASE 9 U/L (17-59); BILIRUBIN,DIRECT 0.6 mg/dL (0.0-0.4); BILIRUBIN,TOTAL 0.6 mg/dL (0.2-1.3); BLOOD UREA NITROGEN 21 mg/dL (7-20); CALCIUM 8.3 mg/dL (8.4-10.2); CARBON DIOXIDE 25 mmol/L (22-30); CHLORIDE 107 mmol/L (98-107); GLUCOSE 88 mg/dL (75-110); POTASSIUM 4.4 mmol/L (3.6-5.0); SODIUM 140.4 mmol/L (137-145); TOTAL PROTEIN 5.4 g/dL (6.3-8.2)
[2017-09-29 18:42] LABS: CREATINE KINASE < 20 U/L (55-170)
[2017-09-29] MEDS ORDERED: ASPIRIN 81 MG TABLET, CHEWABLE PO ONE (19:23)
[2017-09-29] MEDS ORDERED: ACETAMINOPHEN 325 MG TABLET PO PRN (19:50)
[2017-09-29] MEDS ORDERED: DONEPEZIL HCL 5 MG TABLET PO SCH (22:00)
[2017-09-29] MEDS ORDERED: (PENDING PHARMACY ID) (Sennosides [Senna] 2 TAB) PO SCH (22:00)
--- NOTE | 2017-09-29 22:10 | PDOC H&P ---
History of Present Illness Admission Date/PCP: 09/29/17 19:29 ISAIAS OSORIO MD History of Present Illness: BETTY RODRIGUEZ is a 86 year old male patient of Dr Osorio and resident at local SNF that was transferred to the ED due to facility nursing staff reported episode of patient complain of chest pain and subsequently collapsed to the floor. He spontaneously regain consciousness without any intervention. He denied any preceding palpitation, dizziness, headache or difficulty with breathing. Patient has baseline dementia and reliability of his history is in question. No reported nausea, vomiting, abdominal pain or diarrhea. EMS reported revealed blood pressure of 50/30 on site upon arrival. His evaluation in the ED was significant for CT head and neck not revealing any acute process but suggested mild chronic changes of atrophy with microvascular ischemia, degenerative disc disease, normal chest X ray without acute cardiopulmonary process and EKG that revealed concern for anteroseptal infarct and variable sinus rhythm with episode of sinus bradycardia. His laboratory findings suggested elevated NT-Pro BNP for his age and morbidities, anemia, renal insufficiency, protein malnutrition and normal cardiac enzymes. Patient was advised hospitalization for further evaluation and management. His morbidities include Hypertension, Benign Prostatic Hyperplasia, Gastroesophageal Reflux Disease, osteoarthritis, Dementia, and Depression. Past Medical History Cardiac Medical History: Reports: Hypertension Denies: Heart Murmur Pulmonary Medical History: Reports: Bronchitis, Pneumonia Denies: Tuberculosis Neurological Medical History: Denies: Seizures GI Medical History: Reports: Gastroesophageal Reflux Disease Musculoskeltal Medical History: Reports: Arthritis - legs, knees Psychiatric Medical History: Reports: Depression Hematology: Reports: Anemia Denies: Hemophilia, Sickle Cell Disease Past Surgical History Past Surgical History: Reports: Appendectomy, Tonsillectomy Social History Smoking Status: Never Smoker Frequency of Alcohol Use: Occasional Hx Recreational Drug Use: Yes Drugs: Marijuana Hx Prescription Drug Abuse: No Family History Family History: Reviewed & Not Pertinent Parental Family History Reviewed: Yes Children Family History Reviewed: Yes Sibling(s) Family History Reviewed.: Yes Medication/Allergy Home Medications: Acetaminophen [Tylenol 325 mg Tablet] 650 mg PO Q6HP PRN 09/29/17 Aripiprazole [Abilify 2 mg Tablet] 2 mg PO DAILY 09/29/17 Ascorbic Acid [Vitamin C 500 mg Tablet] 500 mg PO BID 09/29/17 Calcium Carbonate [Tums Chewable 500 mg Tab.chew] 500 mg PO QID 09/29/17 Carvedilol [Coreg 25 mg Tablet] 25 mg PO Q12 09/29/17 Cholecalciferol (Vitamin D3) [Vitamin D3] 50,000 unit PO COLE@1000 09/29/17 Citalopram Hydrobromide [Celexa 20 mg Tablet] 20 mg PO DAILY 09/29/17 Donepezil HCl [Aricept 5 mg Tablet] 5 mg PO QHS 09/29/17 Ferrous Sulfate [Feosol 325 mg Tablet] 325 mg PO DAILY 09/29/17 Finasteride [Proscar 5 mg Tablet] 5 mg PO DAILY 09/29/17 Memantine HCl [Namenda 10 mg Tablet] 10 mg PO BID 09/29/17 Omeprazole 40 mg PO DAILY 09/29/17 Sennosides [Senna] 2 tab PO QHS 09/29/17 Tamsulosin HCl [Flomax 0.4 mg Cap.sr] 0.4 mg PO DAILY 09/29/17 Thiamine HCl [Vitamin B-1] 100 mg PO DAILY 09/29/17 Allergies/Adverse Reactions: Sulfa (Sulfonamide Antibiotics) Allergy (Unknown, Verified 02/23/16 12:35) Penicillins Allergy (Verified 02/23/16 12:35) Review of Systems Constitutional: ABSENT: chills, fever(s), headache(s), weight gain, weight loss Eyes: ABSENT: visual disturbances Ears: ABSENT: hearing changes Nose, Mouth, and Throat: ABSENT: as per HPI, headache(s), mouth pain, sore throat, vertigo, other Cardiovascular: PRESENT: chest pain. ABSENT: as per HPI, dyspnea on exertion, edema, orthropnea, palpitations, other Respiratory: ABSENT: cough, hemoptysis Gastrointestinal: ABSENT: abdominal pain, constipation, diarrhea, hematemesis, hematochezia, nausea, vomiting Genitourinary: ABSENT: difficulty urinating, dysuria, hematuria Musculoskeletal: ABSENT: deformity Integumentary: ABSENT: rash, wounds Neurological: PRESENT: memory loss. ABSENT: as per HPI, abnormal gait, abnormal movements, abnormal speech, convulsions, dizziness, focal weakness, frequent falls, lack of coordination, numbness, paresthesias, restless legs, syncope, tingling, tremor(s), vertigo, weakness, other Psychiatric: PRESENT: depression. ABSENT: anxiety, hallucinations, homidical ideation, suicidal ideation Endocrine: ABSENT: cold intolerance, heat intolerance, polydipsia, polyuria Hematologic/Lymphatic: ABSENT: easy bleeding, easy bruising, lymphadenopathy Allergic/Immunologic: ABSENT: seasonal rhinorrhea Physical Exam Vital Signs: Temp Pulse Resp BP Pulse Ox 97.8 F 54 L 20 122/92 H 94 09/29/17 21:31 09/29/17 17:42 09/29/17 21:31 09/29/17 21:31 09/29/17 21:31 Intake & Output 09/28/17 09/29/17 09/30/17 06:59 06:59 06:59 Weight 75 kg General appearance: PRESENT: no acute distress Head exam: PRESENT: atraumatic, normocephalic Eye exam: PRESENT: conjunctiva pink, EOMI, PERRLA. ABSENT: scleral icterus Ear exam: PRESENT: normal external ear exam Mouth exam: PRESENT: moist, neck supple Neck exam: PRESENT: full ROM. ABSENT: carotid bruit, JVD, lymphadenopathy, thyromegaly Respiratory exam: PRESENT: clear to auscultation abisai Cardiovascular exam: PRESENT: RRR. ABSENT: diastolic murmur, rubs, systolic murmur Pulses: PRESENT: +1 pedal pulses bilateral Vascular exam: PRESENT: normal capillary refill. ABSENT: pallor GI/Abdominal exam: PRESENT: normal bowel sounds, soft. ABSENT: distended, guarding, mass, organolmegaly, rebound, tenderness Rectal exam: PRESENT: deferred Extremities exam: ABSENT: pedal edema Musculoskeletal exam: PRESENT: deformity - features of arthritis Neurological exam: PRESENT: alert, awake, oriented to person, oriented to place , oriented to time, oriented to situation, CN II-XII grossly intact Psychiatric exam: PRESENT: appropriate affect, normal mood. ABSENT: homicidal ideation, suicidal ideation Skin exam: PRESENT: dry, intact, warm. ABSENT: cyanosis, rash Results Laboratory Results: I reviewed his lab results on [facility] and form significant part of my medical decision making on this case. Impressions: Cervical Spine CT 09/29/17 16:12 IMPRESSION: No acute posttraumatic changes. Degenerative disc disease. No interval change since 02/23/2016. Chest X-Ray 09/29/17 16:12 IMPRESSION: No acute cardiopulmonary disease suggested. Findings as above. Head CT 09/29/17 16:12 IMPRESSION: MILD CHRONIC CHANGES OF ATROPHY AND MICROVASCULAR ISCHEMIA. NO ACUTE PROCESS. EVIDENCE OF ACUTE STROKE: NO. Assessment & Plan - Diagnosis (1) Chest pain, rule out acute myocardial infarction Is this a current diagnosis for this admission?: Yes Plan: See covering attending physician orders. (2) Syncope and collapse Is this a current diagnosis for this admission?: Yes Plan: See covering attending physician orders. (3) Elevated brain natriuretic peptide (BNP) level Is this a current diagnosis for this admission?: Yes Plan: See covering attending physician orders. (4) Anemia of chronic disease Is this a current diagnosis for this admission?: Yes Plan: See covering attending physician orders. (5) Chronic kidney disease, stage 3 Is this a current diagnosis for this admission?: Yes Plan: See covering attending physician orders. (6) Hypoalbuminemia Is this a current diagnosis for this admission?: Yes Plan: See covering attending physician orders. (7) Senile dementia of Alzheimer's type Is this a current diagnosis for this admission?: Yes Plan: See covering attending physician orders. (8) BPH (benign prostatic hyperplasia) Is this a current diagnosis for this admission?: Yes Plan: See covering attending physician orders. (9) Osteoarthritis involving multiple joints on both sides of body Is this a current diagnosis for this admission?: Yes Plan: See covering attending physician orders. - Time Time Spent: 50 to 70 Minutes Medications reviewed and adjusted accordingly: Yes Anticipated discharge: SNF Within: within 48 hours - Inpatient Certification Based on my medical assessment, after consideration of the patient's comorbidities, presenting symptoms, or acuity I expect that the services needed warrant INPATIENT care.: No I certify that my determination is in accordance with my understanding of Medicare's requirements for reasonable and necessary INPATIENT services [42 CFR 412.3e].: No Post Hospital Care: D/C or Transfer Summary - Plan Summary Plan Summary: See covering attending physician orders.
--- NOTE | 2017-09-29 22:22 | EKG REPORT ---
SEVERITY:- ABNORMAL ECG - SINUS BRADYCARDIA CONSIDER ANTEROSEPTAL INFARCT : Confirmed by: Naomy Dailey 29-Sep-2017 22:21:50
--- NOTE | 2017-09-29 22:26 | EKG REPORT ---
SEVERITY:- ABNORMAL ECG - SINUS RHYTHM CONSIDER ANTEROSEPTAL INFARCT : Confirmed by: Naomy Dailey 29-Sep-2017 22:25:36
[2017-09-29] MEDS: CARVEDILOL 12.5 MG TABLET PO SCH (23:30)
[2017-09-29] MEDS: SENNOSIDES/DOCUSATE 8.6-50 MG 1 EACH TABLET PO SCH (23:30)
[2017-09-29] MEDS: CALCIUM CARBONATE 500 MG TAB.CHEW PO SCH (23:30)
[2017-09-29 23:48] LABS: ALANINE AMINOTRANSFERASE 17 U/L (21-72); ALBUMIN 2.5 g/dL (3.5-5.0); ALKALINE PHOSPHATASE 42 U/L (38-126); ANION GAP 8 (5-19); ASPARTATE AMINO TRANSFERASE 13 U/L (17-59); BILIRUBIN,DIRECT 0.2 mg/dL (0.0-0.4); BILIRUBIN,TOTAL 0.3 mg/dL (0.2-1.3); BLOOD UREA NITROGEN 21 mg/dL (7-20); CALCIUM 8.1 mg/dL (8.4-10.2); CARBON DIOXIDE 25 mmol/L (22-30); CHLORIDE 106 mmol/L (98-107); GLUCOSE 108 mg/dL (75-110); SODIUM 138.5 mmol/L (137-145); TOTAL PROTEIN 5.3 g/dL (6.3-8.2)
[2017-09-29 23:59] LABS: ABSOLUTE EOSINOPHILS # (AUTO) 0.1 10^3/uL (0.0-0.6); ABSOLUTE LYMPHOCYTES (AUTO) 2.7 10^3/uL (0.5-4.7); ABSOLUTE MONOCYTES (AUTO) 0.5 10^3/uL (0.1-1.4); ABSOLUTE NEUT (AUTO) 3.8 10^3/uL (1.7-8.2); BASOPHILS % (AUTO) 0.4 % (0-2); EOSINOPHILS % (AUTO) 1.8 % (0-6); HEMATOCRIT 30.1 % (37.9-51.0); HEMOGLOBIN 10.1 g/dL (13.5-17.0); LYMPHOCYTES % (AUTO) 37.5 % (13-45); MEAN CORPUSCULAR HEMOGLOBIN 29.6 pg (27.0-33.4); MEAN CORPUSCULAR HGB CONC 33.4 g/dL (32.0-36.0); MEAN CORPUSCULAR VOLUME 89 fl (80-97); MONOCYTES % (AUTO) 7.5 % (3-13); PLATELET COUNT 188 10^3/uL (150-450); RED BLOOD COUNT 3.39 10^6/uL (4.35-5.55); RED CELL DISTRIBUTION WIDTH 14.8 % (11.5-14.0); SEGMENTED NEUTROPHILS % (AUTO) 52.8 % (42-78); TOTAL CELLS COUNTED % (AUTO) 100 %; WHITE BLOOD COUNT 7.3 10^3/uL (4.0-10.5)
[2017-09-30 06:02] LABS: CREATINE KINASE MB 0.44 ng/mL (<4.55)
[2017-09-30 06:05] LABS: TROPONIN I < 0.012 ng/mL
[2017-09-30] MEDS ORDERED: (PENDING PHARMACY ID) (Thiamine Hcl [Vitamin B-1] 100 MG) PO SCH (10:00)
[2017-09-30] MEDS: FERROUS SULFATE 325 MG TABLET PO SCH (10:03)
[2017-09-30] MEDS: CALCIUM CARBONATE 500 MG TAB.CHEW PO SCH ×4 (10:03→22:19)
[2017-09-30] MEDS: THIAMINE HCL 100 MG TABLET PO SCH (10:04)
[2017-09-30] MEDS: FINASTERIDE 5 MG TABLET PO SCH (10:04)
[2017-09-30] MEDS: ASCORBIC ACID 500 MG TABLET PO SCH ×2 (10:04→17:43)
[2017-09-30] MEDS: CARVEDILOL 12.5 MG TABLET PO SCH ×2 (10:04→22:19)
[2017-09-30] MEDS: CITALOPRAM HYDROBROMIDE 20 MG TABLET PO SCH (10:04)
[2017-09-30] MEDS: MEMANTINE HCL 10 MG TABLET PO SCH ×2 (10:05→17:43)
[2017-09-30] MEDS: ARIPIPRAZOLE 2 MG TABLET PO SCH (11:08)
[2017-09-30 12:11] LABS: TROPONIN I < 0.012 ng/mL
--- NOTE | 2017-09-30 17:59 | PDOC PROGRESS REPORT ---
Subjective Progress Note for:: 09/30/17 Subjective:: Patient denied any chest pain or difficulty with breathing. Tolerating oral feeding. No nausea, vomiting or abdominal pain. Satisfactory bowel movement. No recurrence of syncope or collapse since admission. No fever or chills. Generalized decondition persist. Reason For Visit: CHEST PAIN,SYNCOPE AND COLLAPSE Physical Exam Vital Signs: Temp Pulse Resp BP Pulse Ox 98.3 F 68 22 H 97/77 L 99 09/30/17 11:21 09/30/17 14:00 09/30/17 11:21 09/30/17 11:21 09/30/17 11:21 Intake & Output 09/29/17 09/30/17 10/01/17 06:59 06:59 06:59 Intake Total 696 Output Total 450 Balance -450 696 Weight 72.6 kg General appearance: PRESENT: no acute distress Head exam: PRESENT: atraumatic, normocephalic Eye exam: PRESENT: conjunctiva pink, EOMI, PERRLA. ABSENT: scleral icterus Ear exam: PRESENT: normal external ear exam Mouth exam: PRESENT: moist Respiratory exam: PRESENT: clear to auscultation abisai, decreased breath sounds - at lung bases Cardiovascular exam: PRESENT: RRR. ABSENT: diastolic murmur, rubs, systolic murmur Vascular exam: PRESENT: normal capillary refill. ABSENT: pallor GI/Abdominal exam: PRESENT: normal bowel sounds, soft. ABSENT: distended, guarding, mass, organolmegaly, rebound, tenderness Extremities exam: ABSENT: pedal edema Musculoskeletal exam: PRESENT: normal inspection Neurological exam: PRESENT: alert - and appropriate in simple responses, awake, oriented to person, oriented to place, oriented to time, oriented to situation, CN II-XII grossly intact. ABSENT: motor sensory deficit Psychiatric exam: PRESENT: appropriate affect, normal mood. ABSENT: homicidal ideation, suicidal ideation Skin exam: PRESENT: dry, intact, warm. ABSENT: cyanosis, rash Results Laboratory Results: 09/29/17 23:41 09/29/17 23:02 09/29/17 09/29/17 23:02 23:41 WBC 7.3 RBC 3.39 L Hgb 10.1 L Hct 30.1 L MCV 89 MCH 29.6 MCHC 33.4 RDW 14.8 H Plt Count 188 Seg Neutrophils % 52.8 Lymphocytes % 37.5 Monocytes % 7.5 Eosinophils % 1.8 Basophils % 0.4 Absolute Neutrophils 3.8 Absolute Lymphocytes 2.7 Absolute Monocytes 0.5 Absolute Eosinophils 0.1 Absolute Basophils 0.0 Sodium 138.5 Potassium 4.0 Chloride 106 Carbon Dioxide 25 Anion Gap 8 BUN 21 H Creatinine 1.23 Est GFR ( Amer) > 60 Est GFR (Non-Af Amer) 56 L Glucose 108 Calcium 8.1 L Total Bilirubin 0.3 AST 13 L ALT 17 L Alkaline Phosphatase 42 Total Protein 5.3 L Albumin 2.5 L 09/29/17 09/29/17 09/30/17 23:02 23:02 05:00 Creatine Kinase < 20 L < 20 L CK-MB (CK-2) Troponin I < 0.012 09/30/17 09/30/17 09/30/17 05:00 11:00 11:00 Creatine Kinase < 20 L CK-MB (CK-2) 0.44 0.40 Troponin I < 0.012 < 0.012 Impressions: Cervical Spine CT 09/29/17 16:12 IMPRESSION: No acute posttraumatic changes. Degenerative disc disease. No interval change since 02/23/2016. Chest X-Ray 09/29/17 16:12 IMPRESSION: No acute cardiopulmonary disease suggested. Findings as above. Head CT 09/29/17 16:12 IMPRESSION: MILD CHRONIC CHANGES OF ATROPHY AND MICROVASCULAR ISCHEMIA. NO ACUTE PROCESS. EVIDENCE OF ACUTE STROKE: NO. Assessment & Plan - Diagnosis (1) Chest pain, rule out acute myocardial infarction Is this a current diagnosis for this admission?: Yes (2) Syncope and collapse Is this a current diagnosis for this admission?: Yes Plan: Probable due to drug-drug interaction with QT prolongation due to Aricept and Citalopram usage. Former have been discontinued since admission. (3) Elevated brain natriuretic peptide (BNP) level Is this a current diagnosis for this admission?: Yes (4) Anemia of chronic disease Is this a current diagnosis for this admission?: Yes (5) Chronic kidney disease, stage 3 Is this a current diagnosis for this admission?: Yes (6) Hypoalbuminemia Is this a current diagnosis for this admission?: Yes (7) Senile dementia of Alzheimer's type Is this a current diagnosis for this admission?: Yes (8) BPH (benign prostatic hyperplasia) Is this a current diagnosis for this admission?: Yes (9) Osteoarthritis involving multiple joints on both sides of body Is this a current diagnosis for this admission?: Yes - Time Time Spent with patient: 25-34 minutes Medications reviewed and adjusted accordingly: Yes Anticipated discharge: SNF - with short term rehabilitation Within: within 24 hours - Inpatient Certification Based on my medical assessment, after consideration of the patient's comorbidities, presenting symptoms, or acuity I expect that the services needed warrant INPATIENT care.: No I certify that my determination is in accordance with my understanding of Medicare's requirements for reasonable and necessary INPATIENT services [42 CFR 412.3e].: No Medical Necessity: Need Close Monitoring Due to Risk of Patient Decompensation, Need For IV Fluids, Need For Continuous Telemetry Monitoring, Risk of Complication if Not Cared For in Hospital Post Hospital Care: D/C or Transfer Summary - Plan Summary Plan Summary: See attending physician orders. Consider transfer back to SNF in next 24 hours if residential monitor remain in satisfactory range.
[2017-09-30] MEDS ORDERED: TAMSULOSIN HCL 0.4 MG CAP.SR.24H PO SCH (18:00)
[2017-09-30] MEDS: SENNOSIDES/DOCUSATE 8.6-50 MG 1 EACH TABLET PO SCH (22:18)
--- NOTE | 2017-10-01 08:44 | PDOC TRANSFER SUMMARY ---
General - Admit/Disc Date/PCP Admission Date/Primary Care Provider: 09/29/17 19:29 ISAIAS OSORIO MD Discharge Date: 10/01/17 - Discharge Diagnosis (1) Chest pain, rule out acute myocardial infarction Is this a current diagnosis for this admission?: Yes (2) Syncope and collapse Is this a current diagnosis for this admission?: Yes (3) Elevated brain natriuretic peptide (BNP) level Is this a current diagnosis for this admission?: Yes (4) Anemia of chronic disease Is this a current diagnosis for this admission?: Yes (5) Chronic kidney disease, stage 3 Is this a current diagnosis for this admission?: Yes (6) Hypoalbuminemia Is this a current diagnosis for this admission?: Yes (7) Senile dementia of Alzheimer's type Is this a current diagnosis for this admission?: Yes (8) BPH (benign prostatic hyperplasia) Is this a current diagnosis for this admission?: Yes (9) Osteoarthritis involving multiple joints on both sides of body Is this a current diagnosis for this admission?: Yes - Additional Information Resuscitation Status: Full Code Home Medications: Acetaminophen [Tylenol 325 mg Tablet] 650 mg PO Q6HP PRN 09/29/17 Aripiprazole [Abilify 2 mg Tablet] 2 mg PO DAILY 09/29/17 Ascorbic Acid [Vitamin C 500 mg Tablet] 500 mg PO BID 09/29/17 Calcium Carbonate [Tums Chewable 500 mg Tab.chew] 500 mg PO QID 09/29/17 Carvedilol [Coreg 25 mg Tablet] 25 mg PO Q12 09/29/17 Cholecalciferol (Vitamin D3) [Vitamin D3] 50,000 unit PO COLE@1000 09/29/17 Citalopram Hydrobromide [Celexa 20 mg Tablet] 20 mg PO DAILY 09/29/17 Ferrous Sulfate [Feosol 325 mg Tablet] 325 mg PO DAILY 09/29/17 Finasteride [Proscar 5 mg Tablet] 5 mg PO DAILY 09/29/17 Memantine HCl [Namenda 10 mg Tablet] 10 mg PO BID 09/29/17 Omeprazole 40 mg PO DAILY 09/29/17 Sennosides [Senna] 2 tab PO QHS 09/29/17 Tamsulosin HCl [Flomax 0.4 mg Cap.sr] 0.4 mg PO DAILY 09/29/17 Thiamine HCl [Vitamin B-1] 100 mg PO DAILY 09/29/17 History of Present Illness Admission Date/PCP: 09/29/17 19:29 ISAIAS OSORIO MD History of Present Illness: BETTY RODRIGUEZ is a 86 year old male patient of Dr Osorio and resident at local SNF that was transferred to the ED due to facility nursing staff reported episode of patient complain of chest pain and subsequently collapsed to the floor. He spontaneously regain consciousness without any intervention. He denied any preceding palpitation, dizziness, headache or difficulty with breathing. Patient has baseline dementia and reliability of his history is in question. No reported nausea, vomiting, abdominal pain or diarrhea. EMS reported revealed blood pressure of 50/30 on site upon arrival. His evaluation in the ED was significant for CT head and neck not revealing any acute process but suggested mild chronic changes of atrophy with microvascular ischemia, degenerative disc disease, normal chest X ray without acute cardiopulmonary process and EKG that revealed concern for anteroseptal infarct and variable sinus rhythm with episode of sinus bradycardia. His laboratory findings suggested elevated NT-Pro BNP for his age and morbidities, anemia, renal insufficiency, protein malnutrition and normal cardiac enzymes. Patient was advised hospitalization for further evaluation and management. His morbidities include Hypertension, Benign Prostatic Hyperplasia, Gastroesophageal Reflux Disease, osteoarthritis, Dementia, and Depression. Hospital Course Hospital Course: Patient di not have any recurrence of syncope or collapse while on admission. His Aricept was discontinued due to increase risk of OT prolongation from drug- drug interaction with Citalopram. He will be discharged to SNF with recommendation for short term rehabilitation for deconditioning. He will follow up with Dr Osorio at SNF for further evaluation and management. His echocardiogram and carotid doppler completed in August, did not reveal any significant pathology that may contribute to his syncope and collapse. His cardiac enzymes were within normal limit. Physical Exam Vital Signs: Temp Pulse Resp BP Pulse Ox 97.9 F 54 L 20 116/75 96 10/01/17 07:57 10/01/17 07:57 10/01/17 07:57 10/01/17 07:57 10/01/17 07:57 Intake & Output 09/30/17 10/01/17 10/02/17 06:59 06:59 06:59 Intake Total 1204 Output Total 450 2 Balance -450 1202 Weight 72.6 kg 73.2 kg General appearance: PRESENT: no acute distress Head exam: PRESENT: atraumatic, normocephalic Eye exam: PRESENT: conjunctiva pink, EOMI, PERRLA. ABSENT: scleral icterus Ear exam: PRESENT: normal external ear exam Mouth exam: PRESENT: moist Respiratory exam: PRESENT: clear to auscultation abisai, decreased breath sounds - at lung bases Cardiovascular exam: PRESENT: RRR. ABSENT: diastolic murmur, rubs, systolic murmur Vascular exam: PRESENT: normal capillary refill. ABSENT: pallor GI/Abdominal exam: PRESENT: normal bowel sounds, soft. ABSENT: distended, guarding, mass, organomegaly, rebound, tenderness Extremities exam: ABSENT: pedal edema Musculoskeletal exam: PRESENT: normal inspection Neurological exam: PRESENT: alert - and appropriate in simple responses, awake, oriented to person, oriented to place, oriented to time, oriented to situation, CN II-XII grossly intact. ABSENT: motor sensory deficit Psychiatric exam: PRESENT: appropriate affect, normal mood. ABSENT: homicidal ideation, suicidal ideation Skin exam: PRESENT: dry, intact, warm. ABSENT: cyanosis, rash Results Laboratory Results: 09/29/17 23:41 09/29/17 23:02 09/29/17 09/29/17 09/30/17 23:02 23:02 05:00 Creatine Kinase < 20 L < 20 L CK-MB (CK-2) Troponin I < 0.012 09/30/17 09/30/17 09/30/17 05:00 11:00 11:00 Creatine Kinase < 20 L CK-MB (CK-2) 0.44 0.40 Troponin I < 0.012 < 0.012 Impressions: Cervical Spine CT 09/29/17 16:12 IMPRESSION: No acute posttraumatic changes. Degenerative disc disease. No interval change since 02/23/2016. Chest X-Ray 09/29/17 16:12 IMPRESSION: No acute cardiopulmonary disease suggested. Findings as above. Head CT 09/29/17 16:12 IMPRESSION: MILD CHRONIC CHANGES OF ATROPHY AND MICROVASCULAR ISCHEMIA. NO ACUTE PROCESS. EVIDENCE OF ACUTE STROKE: NO. Transfer Plan - Disposition Transfer Plan: Transfer back to [facility] with recommendation for short term rehabilitation. - Time Spent with Patient Time spent with patient: Less than 30 Minutes Qualifiers - * PATIENT BEING DISCHARGED WITH ANY OF THE FOLLOWING DIAGNOSIS: No Plan Discharge Plan: Transfer back to [facility] with recommendation for short term rehabilitation.
[2017-10-01] MEDS: CARVEDILOL 12.5 MG TABLET PO SCH (09:05)
[2017-10-01] MEDS: CALCIUM CARBONATE 500 MG TAB.CHEW PO SCH ×2 (09:05→13:23)
[2017-10-01] MEDS: FINASTERIDE 5 MG TABLET PO SCH (09:05)
[2017-10-01] MEDS: ASCORBIC ACID 500 MG TABLET PO SCH (09:05)
[2017-10-01] MEDS: FERROUS SULFATE 325 MG TABLET PO SCH (09:06)
[2017-10-01] MEDS: CITALOPRAM HYDROBROMIDE 20 MG TABLET PO SCH (09:06)
[2017-10-01] MEDS: THIAMINE HCL 100 MG TABLET PO SCH (09:06)
[2017-10-01] MEDS: ARIPIPRAZOLE 2 MG TABLET PO SCH (09:06)
[2017-10-01] MEDS: MEMANTINE HCL 10 MG TABLET PO SCH (09:06)
--- NOTE | 2017-10-01 13:50 | RADIOLOGY REPORT (SQ) ---
EXAM DESCRIPTION: CAROTID DOPPLER COMPLETED DATE/TIME: 10/01/2017 1:41 pm REASON FOR STUDY: Chest pain, syncope and collapse R07.9 CHEST PAIN, UNSPECIFIED COMPARISON: None. TECHNIQUE: Grayscale ultrasound, Doppler velocity and spectra, and color Doppler images acquired of the extra-cranial carotid and vertebral arteries. Images stored on PACS. LIMITATIONS: Study is limited due to the patient's condition. FINDINGS: RIGHT CAROTID CCA Velocities: Within normal limits. ICA Velocities Peak systolic 0.63 m/s. End diastolic 0.18 m/s. Proximal ICA/CCA peak systolic ratio 1.2. Spectra normal. No significant plaque. LEFT CAROTID CCA Velocities: Within normal limits. ICA Velocities Peak systolic 1.09 m/s. End diastolic 0.44 m/s. Proximal ICA/CCA peak systolic ratio 1.4. Calcific atherosclerotic plaquing is identified. VERTEBRAL ARTERIES: Antegrade flow. Waveforms on the left are suspicious for a developing subclavian steal. SUBCLAVIAN ARTERIES: No finding. OTHER: No other significant finding. IMPRESSION: NO HEMODYNAMICALLY SIGNIFICANT STENOSIS. Other findings as noted above COMMENT: Quality ID #[id number]: Velocity criteria are extrapolated from the diameter data as defined by t he Society of Radiologists in Ultrasound Consensus Conference. Radiology 2003: 229; 340-346. TECHNICAL DOCUMENTATION: JOB ID: [id number] [employer]- All Rights Reserved Reading location - IP/workstation name: [email or web address]
[2017-10-01 15:35] VITALS: BP 96/66
--- NOTE | 2017-10-01 20:47 | XCELERA REPORT ---
[address] [address] Transthoracic Echocardiogram Report Name: BETTY RODRIGUEZ Age: 86 yrs Gender: Male : 1930 Patient Status: Inpatient Patient Location: [address] [place], [place] [address] Study Date: 10/01/2017 10:39 AM Height: 68 in Weight: 165 lb BSA: 1.9 m2 Procedure: A two-dimensional transthoracic echocardiogram with color flow Doppler was performed. Study Quality: Technically suboptimal. Reason For Study: chest pain, syncope, and collapse History: chest pain, syncope, and collapse. Ordering Physician: CIERA ADEN Performed By: Cary Sanchez Interpretation Summary There is no obvious cardiac source of embolus noted on this transthoracic echocardiogram. Follow-up with a ENRIKE is suggested if cardiac source is still suspected. The left ventricle is normal in size. There is normal left ventricular wall thickness. LV EF is > than 65% Left ventricular systolic function is normal. Doppler measurements suggest impaired left ventricular relaxation, which is associated with grade I/IV or mild diastolic dysfunction The left ventricular wall motion is normal. The left atrial size is normal. There is no evidence of mitral valve prolapse. There is no mitral valve stenosis. There is no mitral regurgitation noted. There is no aortic valve stenosis There is no LVOT obstruction. No aortic regurgitation is present. There is no pericardial effusion. There is no obvious cardiac source of embolus noted on this transthoracic echocardiogram. Follow-up with a ENRIKE is suggested if cardiac source is still suspected MMode/2D Measurements & Calculations RVDd: 3.4 cm LVIDd: 4.6 cm FS: 40.6 % Ao root diam: 3.5 cm IVSd: 1.0 cm LVIDs: 2.7 cm EDV(Teich): 97.2 ml Ao root area: 9.7 cm2 LVPWd: 1.0 cm ESV(Teich): 27.8 ml LA dimension: 3.1 cm EF(Teich): 71.4 % Doppler Measurements & Calculations MV E max manolo: MV P1/2t max manolo: Ao V2 max: LV V1 max P.7 cm/sec 64.2 cm/sec 133.2 cm/sec 3.4 mmHg MV A max manolo: MV P1/2t: 129.7 msec Ao max PG: LV V1 max: 101.2 cm/sec MVA(P1/2t): 1.7 cm2 7.1 mmHg 92.3 cm/sec MV E/A: 0.63 MV dec slope: 144.9 cm/sec2 MV dec time: 0.42 sec PA V2 max: PI end-d manolo: TR max manolo: MV P1/2t-pr_phl: 78.5 cm/sec 92.1 cm/sec 170.3 cm/sec 129.7 msec PA max P.5 mmHg TR max P.6 mmHg Left Ventricle The left ventricle is normal in size. There is normal left ventricular wall thickness. LV EF is > than 65%. Left ventricular systolic function is normal. Doppler measurements suggest impaired left ventricular relaxation, which is associated with grade I/IV or mild diastolic dysfunction. The left ventricular wall motion is normal. There is no thrombus. Right Ventricle The right ventricle is not well visualized secondary to technical limitations. Atria Right atrium not well visualized secondary to technical limitations. The left atrial size is normal. Mitral Valve There is no evidence of mitral valve prolapse. There is no vegetation seen on the mitral valve. There is no mitral valve stenosis. There is no mitral regurgitation noted. Aortic Valve There is no aortic valve stenosis. There is no LVOT obstruction. No aortic regurgitation is present. Tricuspid Valve There is no tricuspid stenosis. There is a trace amount of tricuspid regurgitation. Great Vessels The aortic root is not well visualized. Effusions There is no pericardial effusion. : CIERA ADEN > Alexia Reyes
[2017-10-04] MEDS ORDERED: ERGOCALCIFEROL (VITAMIN D2) 50000 UNIT (1.25 MG) CAPSULE PO SCH (10:00)
[2017-10-04] MEDS ORDERED: (PENDING PHARMACY ID) (Cholecalciferol (Vitamin D3) [Vitamin D3] 50,000 UNIT) PO SCH (10:00)
== END 2017-10-01 16:51 ==
LOC: ER 15:30 → EH 19:29 → 3N 22:22
PROVIDERS: ADMIT Internal Medicine Geriatric Medicine; ATTEND Internal Medicine Geriatric Medicine
DX: R07.9 Chest pain, unspecified (principal); R55 Syncope and collapse; R79.89 Other specified abnormal findings of blood chemistry; D63.8 Anemia in other chronic diseases classified elsewhere; I12.9 Hypertensive chronic kidney disease with stage 1 through stage 4 chronic kidney disease, or unspecified chronic kidney disease; N18.3 Chronic kidney disease, stage 3 (moderate); E88.09 Other disorders of plasma-protein metabolism, not elsewhere classified; G30.1 Alzheimer's disease with late onset; F02.80 Dementia in other diseases classified elsewhere, unspecified severity, without behavioral disturbance, psychotic disturbance, mood disturbance, and anxiety; N40.0 Benign prostatic hyperplasia without lower urinary tract symptoms; M15.9 Polyosteoarthritis, unspecified; R00.1 Bradycardia, unspecified; E46 Unspecified protein-calorie malnutrition; K21.9 Gastro-esophageal reflux disease without esophagitis; F32.9 Major depressive disorder, single episode, unspecified; M50.30 Other cervical disc degeneration, unspecified cervical region; G89.29 Other chronic pain; J90 Pleural effusion, not elsewhere classified; I48.2 Chronic atrial fibrillation; Z68.25 Body mass index [BMI] 25.0-25.9, adult; Z79.899 Other long term (current) drug therapy; Z90.49 Acquired absence of other specified parts of digestive tract
CPT/HCPCS: 93005; 99285; 36415 ×2; 82553 ×2; 82550 ×2; 83735; 85025; 80053; 81001; 84484 ×2; 82803; 83880; 93306; 93880; 71046; 71045; 70450; 72125; 93010; A9270 ×23; J3490

== ENCOUNTER → 2017-11-03 | Outpatient (CLI) | payer MEDICARE, MEDICAID ==
--- NOTE | 2017-11-03 13:30 | RADIOLOGY REPORT (SQ) ---
EXAM DESCRIPTION: CT HEAD WITHOUT COMPLETED DATE/TIME: 11/03/2017 1:18 pm REASON FOR STUDY: CEREBRAL INFARCTION, UNSPEC (I63.9) I63.9 CEREBRAL INFARCTION, UNSPECIFIED COMPARISON: 09/29/2017 TECHNIQUE: Axial images acquired through the brain without intravenous contrast. Images reviewed wi th bone, brain and subdural windows. Additional sagittal and coronal reconstructions were generated. Images stored on PACS. All CT scanners at this facility use dose modulation, iterative reconstruction, and/or weight based d osing when appropriate to reduce radiation dose to as low as reasonably achievable (ALARA). [facility]: Dose Right [facility]: CareDose [facility]: Dose Right [facility]: Teradose 4D [facility]: [employer] RADIATION DOSE: CT Rad equipment meets quality standard of care and radiation dose reduction techniq ues were employed. CTDIvol: 48.6 mGy. DLP: 953 mGy-cm.mGy. LIMITATIONS: None. FINDINGS: VENTRICLES: Prominent. CEREBRUM: No masses. No hemorrhage. No midline shift. Areas of low density in the white matter mos t likely due to chronic micro-vascular ischemic change. No evidence for acute infarction. CEREBELLUM: No masses. No hemorrhage. No alteration of density. No evidence for acute infarction. EXTRAAXIAL SPACES: Age-related involutional change. No fluid collections. No masses. ORBITS AND GLOBE: No intra- or extraconal masses. Normal contour of globe without masses. CALVARIUM: No fracture. PARANASAL SINUSES: Fluid in the ethmoid sinuses. SOFT TISSUES: No mass or hematoma. OTHER: No other significant finding. IMPRESSION: CHRONIC CHANGES OF ATROPHY AND MICROVASCULAR ISCHEMIA. NO ACUTE PROCESS. EVIDENCE OF ACUTE STROKE: NO. TECHNICAL DOCUMENTATION: JOB ID: [id number] Quality ID # [id number]: Final reports with documentation of one or more dose reduction techniques (e.g., Au tomated exposure control, adjustment of the mA and/or kV according to patient size, use of iterative reconstruction technique) 2010 [email or web address]- All Rights Reserved Reading location - IP/workstation name: [email or web address]
== END ==
LOC: RAD 12:57
PROVIDERS: ATTEND Internal Medicine
DX: I63.9 Cerebral infarction, unspecified (principal)
CPT/HCPCS: 70450

== ENCOUNTER 2018-02-27 20:23 | Emergency (ER) | payer MEDICARE, MEDICAID ==
[2018-02-27 20:41] VITALS: BP 93/53
--- NOTE | 2018-02-27 20:44 | ER Document Report ---
ED General - General Chief Complaint: hypotension Stated Complaint: BLOOD PRESSURE PROBLEM Time Seen by Provider: 02/27/18 20:38 Notes: Patient is a 87-year-old male with history of atrial fibrillation that presents to the emergency department for chief complaint of syncopal episode and lightheadedness. Patient lives in a retirement, apparently had a near syncopal or syncopal episode, he states he was feeling lightheaded more recently, but at this time denies any complaints, denies having any nausea, vomiting, chest pain, shortness of breath or difficulty breathing, abdominal pain, dysuria or hematuria. He currently resides in a custodial facility, he is on blood pressure medications but does not recall which medicines he has, fortunately he was transported with his medication list, he is on Coreg, patient was noted to be bradycardic and hypotensive. However the patient denies having any complaints at this time, and is asking if he can eat. Past Medical History: Atrial fibrillation, hypertension, dementia, chronic ki dney disease Past Surgical History: Appendectomy, tonsillectomy Social History: Currently resides at a custodial facility, no current tobacco, alcohol or drug use. Family History: Reviewed and noncontributory for presenting illness Allergies: Reviewed, see documented allergy list. REVIEW OF SYSTEMS: Other than noted above, the 12 point review of systems was reviewed with the patient and were negative, all pertinent findings are included in the HPI. PHYSICAL EXAMINATION: Vital signs reviewed, nursing noted reviewed. GENERAL: Early male, in no acute distress HEAD: Atraumatic, normocephalic. EYES: Eyes appear normal, extraocular movements intact, sclera anicteric, conjunctiva are normal. ENT: nares patent, oropharynx clear without exudates. Moist mucous membranes. NECK: Normal range of motion, supple without lymphadenopathy LUNGS: Breath sounds clear to auscultation bilaterally and equal. No wheezes rales or rhonchi. HEART: Heart rate bradycardic, regular rhythm, no audible murmur ABDOMEN: Soft, nontender, normoactive bowel sounds. No rebound, guarding, or rigidity. No masses appreciated. EXTREMITIES: Nontender, good range of motion, no pitting or edema. NEUROLOGICAL: No focal neurological deficits. Moves all extremities spontaneously Motor and sensory grossly intact on exam. PSYCH: Normal mood, normal affect. SKIN: Warm, Dry, normal turgor, no rashes or lesions noted on exposed skin TRAVEL OUTSIDE OF THE [place] IN LAST 30 DAYS: No - Related Data Allergies/Adverse Reactions: Sulfa (Sulfonamide Antibiotics) Allergy (Unknown, Verified 02/23/16 12:35) Penicillins Allergy (Verified 02/23/16 12:35) Past Medical History - Social History Smoking Status: Never Smoker Family History: Reviewed & Not Pertinent - Past Medical History Cardiac Medical History: Reports: Hx Hypertension Denies: Hx Heart Murmur Pulmonary Medical History: Reports: Hx Bronchitis, Hx Pneumonia Denies: Hx Tuberculosis Neurological Medical History: Denies: Hx Seizures Renal/ Medical History: Reports: Hx Benign Prostatic Hyperplasia. Denies: Hx Peritoneal Dialysis GI Medical History: Reports: Hx Gastroesophageal Reflux Disease. Denies: Hx Pancreatitis Musculoskeletal Medical History: Reports Hx Arthritis - legs, knees Psychiatric Medical History: Reports: Hx Depression Past Surgical History: Reports: Hx Appendectomy, Hx Tonsillectomy - Immunizations Immunizations up to date: Yes Hx Diphtheria, Pertussis, Tetanus Vaccination: Yes - patient states he had the vaccination 3 years ago Hx Pneumococcal Vaccination: 10/03/08 Physical Exam - Vital signs Vitals: Temp Pulse Resp BP Pulse Ox 97.7 F 53 L 18 93/53 L 100 02/27/18 20:38 02/27/18 20:38 02/27/18 20:38 02/27/18 20:38 02/27/18 20:38 Course - Re-evaluation Re-evalutation: Patient seen and examined vital signs reviewed. Laboratory data and imaging were ordered as appropriate for the patient's presenting symptoms and complaint, with consideration of any critical or life threatening conditions that may be associated with their obtained history and exam as noted above. Patient was treated with IV fluid bolus, he was noted to be bradycardic and hypotensive, but asymptomatic, was not experiencing any lightheadedness, and was speaking in full and complete sentences. Results were reviewed when available and demonstrated renal function, slightly above the patient's baseline chronic kidney disease, patient was given IV fluids, possible mild dehydration, I did review the patient's medications, he is on Coreg 25 mg twice daily, likely leading to bradycardia, and relatively low bl ood pressures, I discussed this with the physician on-call for the patient's primary care physician, who was Dr. Hester workplace relations adviser regarding decreasing the dosing to 12.5 mg twice daily, and he was agreeable to this plan of care. The patient was re-evaluated and was stable, asymptomatic. Evaluation was most consistent with bradycardia, hypotension, likely secondary to beta blockade. Will recommend decreasing his beta-ermelinda to 12.5 mg twice daily of Coreg and to follow-up with his primary care physician. Results were discussed with the patient at this point, after careful consideration I feel that that patient can be discharged from the emergency department, the patient was educated treatments and reasons to return to the emergency department based on their presumed diagnosis as noted above, they were advised to followup with a primary care physician in 2-3 days. Patient was agreeable to plan of care. *Note is created using voice recognition software and may contain spelling, syntax or grammatical errors. Laboratory 02/27/18 02/27/18 02/27/18 20:33 20:33 20:33 WBC 7.6 RBC 3.73 L Hgb 10.7 L Hct 32.1 L MCV 86 MCH 28.6 MCHC 33.3 RDW 16.1 H Plt Count 165 Seg Neutrophils % 72.4 Lymphocytes % 19.7 Monocytes % 6.6 Eosinophils % 1.0 Basophils % 0.3 Absolute Neutrophils 5.5 Absolute Lymphocytes 1.5 Absolute Monocytes 0.5 Absolute Eosinophils 0.1 Absolute Basophils 0.0 Sodium 137.1 Potassium 4.1 Chloride 109 H Carbon Dioxide 23 Anion Gap 5 BUN 32 H Creatinine 1.88 H Est GFR ( Amer) 41 L Est GFR (Non-Af Amer) 34 L Glucose 146 H Calcium 8.3 L Total Bilirubin 0.2 Direct Bilirubin 0.1 Neonat Total Bilirubin Not Reportable Neonat Direct Bilirubin Not Reportable Neonat Indirect Bili Not Reportable AST 12 L ALT 20 L Alkaline Phosphatase 53 Troponin I < 0.012 Total Protein 5.6 L Albumin 3.0 L Chest X-Ray 02/27/18 20:53 IMPRESSION: Left basilar subsegmental atelectasis. copyright 2010 [employer]- All Rights Reserved - Vital Signs Vital signs: Temp Pulse Resp BP Pulse Ox 97.7 F 53 L 18 93/53 L 100 02/27/18 20:38 02/27/18 20:38 02/27/18 20:38 02/27/18 20:38 02/27/18 20:38 - Laboratory Result Diagrams: 02/27/18 20:33 02/27/18 20:33 Laboratory results interpreted by me: 02/27/18 02/27/18 20:33 20:33 RBC 3.73 L Hgb 10.7 L Hct 32.1 L RDW 16.1 H Chloride 109 H BUN 32 H Creatinine 1.88 H Est GFR ( Amer) 41 L Est GFR (Non-Af Amer) 34 L Glucose 146 H Calcium 8.3 L AST 12 L ALT 20 L Total Protein 5.6 L Albumin 3.0 L - EKG Interpretation by Me Additional EKG results interpreted by me: EKG demonstrates first-degree AV block, with a ventricular rate of 52 bpm, left axis deviation, QTC 451 ms, there is occasional PVCs noted, no evidence of acute ischemia on this EKG, this is compared with prior EKG from 09/29/2017, without significant change. Discharge - Discharge Clinical Impression: Near syncope, Bradycardia Hypotension Qualifiers: Hypotension type: unspecified hypotension type Qualified Code(s): I95.9 - Hypotension, unspecified Condition: Stable Disposition: HOME-SNF (ED ONLY) Instructions: Near Syncopal Episode ([facility]) Additional Instructions: Your blood pressure was low, as well as your heart rate being low, this is most likely secondary to the carvedilol/Coreg that you are taking, we recommend decreasing the dosing to Carvedilol 12.5mg twice daily, this was discussed with the primary care physician Dr. Hester who was covering for Dr. Osorio. Referrals: ISAIAS OSORIO MD [Primary Care Provider] - Follow up in 3-5 days
[2018-02-27 21:02] LABS: ABSOLUTE EOSINOPHILS # (AUTO) 0.1 10^3/uL (0.0-0.6); ABSOLUTE LYMPHOCYTES (AUTO) 1.5 10^3/uL (0.5-4.7); ABSOLUTE MONOCYTES (AUTO) 0.5 10^3/uL (0.1-1.4); ABSOLUTE NEUT (AUTO) 5.5 10^3/uL (1.7-8.2); BASOPHILS % (AUTO) 0.3 % (0-2); HEMATOCRIT 32.1 % (37.9-51.0); HEMOGLOBIN 10.7 g/dL (13.5-17.0); LYMPHOCYTES % (AUTO) 19.7 % (13-45); MEAN CORPUSCULAR HEMOGLOBIN 28.6 pg (27.0-33.4); MEAN CORPUSCULAR HGB CONC 33.3 g/dL (32.0-36.0); MEAN CORPUSCULAR VOLUME 86 fl (80-97); MONOCYTES % (AUTO) 6.6 % (3-13); PLATELET COUNT 165 10^3/uL (150-450); RED BLOOD COUNT 3.73 10^6/uL (4.35-5.55); RED CELL DISTRIBUTION WIDTH 16.1 % (11.5-14.0); SEGMENTED NEUTROPHILS % (AUTO) 72.4 % (42-78); TOTAL CELLS COUNTED % (AUTO) 100 %; WHITE BLOOD COUNT 7.6 10^3/uL (4.0-10.5)
[2018-02-27 21:22] LABS: ALANINE AMINOTRANSFERASE 20 U/L (21-72); ALKALINE PHOSPHATASE 53 U/L (38-126); ANION GAP 5 (5-19); ASPARTATE AMINO TRANSFERASE 12 U/L (17-59); BILIRUBIN,DIRECT 0.1 mg/dL (0.0-0.4); BILIRUBIN,TOTAL 0.2 mg/dL (0.2-1.3); BLOOD UREA NITROGEN 32 mg/dL (7-20); CALCIUM 8.3 mg/dL (8.4-10.2); CARBON DIOXIDE 23 mmol/L (22-30); CHLORIDE 109 mmol/L (98-107); GLUCOSE 146 mg/dL (75-110); POTASSIUM 4.1 mmol/L (3.6-5.0); SODIUM 137.1 mmol/L (137-145); TOTAL PROTEIN 5.6 g/dL (6.3-8.2)
--- NOTE | 2018-02-27 21:42 | RADIOLOGY REPORT (SQ) ---
EXAM DESCRIPTION: XR CHEST 1 VIEW COMPLETED DATE/TME: 02/27/2018 20:53 CLINICAL HISTORY: 87 years, Male, near syncope COMPARISON: None. NUMBER OF VIEWS: 1 TECHNIQUE: AP view of the chest LIMITATIONS: None. FINDINGS: Left basilar subsegmental atelectasis otherwise the lungs are clear. The cardiac silhouette is at the upper limits of normal for size. No definite pleural abnormalities. IMPRESSION: Left basilar subsegmental atelectasis. copyright 2010 [employer]- All Rights Reserved
[2018-02-27] MEDS ORDERED: NORMAL SALINE 500 ML IV ONE (21:46)
--- NOTE | 2018-02-28 23:50 | EKG REPORT ---
SEVERITY:- ABNORMAL ECG - SINUS RHYTHM MULTIPLE VENTRICULAR PREMATURE COMPLEXES FIRST DEGREE AV BLOCK NONSPECIFIC T ABNORMALITIES, INFERIOR LEADS : Confirmed by: Naomy Dailey 28-Feb-2018 23:48:48
== END 2018-02-27 22:41 ==
LOC: ER 20:23
DX: I95.9 Hypotension, unspecified (principal); R00.1 Bradycardia, unspecified; R55 Syncope and collapse; I12.9 Hypertensive chronic kidney disease with stage 1 through stage 4 chronic kidney disease, or unspecified chronic kidney disease; N18.9 Chronic kidney disease, unspecified; Z79.899 Other long term (current) drug therapy; J98.11 Atelectasis; I49.3 Ventricular premature depolarization; I44.0 Atrioventricular block, first degree; Z88.2 Allergy status to sulfonamides; Z88.0 Allergy status to penicillin
CPT/HCPCS: 93005; 99284; 36415; 85025; 80053; 84484; 71045; 93010; J7040

== ENCOUNTER → 2018-06-24 | Outpatient (CLI) | payer MEDICARE, MEDICAID ==
[2018-06-24 14:47] LABS: HEMATOCRIT 34.5 % (37.9-51.0); HEMOGLOBIN 11.5 g/dL (13.5-17.0); MEAN CORPUSCULAR HGB CONC 33.3 g/dL (32.0-36.0); MEAN CORPUSCULAR VOLUME 87 fl (80-97); PLATELET COUNT 167 10^3/uL (150-450); RED BLOOD COUNT 3.96 10^6/uL (4.35-5.55); RED CELL DISTRIBUTION WIDTH 14.7 % (11.5-14.0); WHITE BLOOD COUNT 7.3 10^3/uL (4.0-10.5)
== END ==
LOC: PNR 13:18
PROVIDERS: ATTEND Internal Medicine
DX: N18.3 Chronic kidney disease, stage 3 (moderate) (principal); D50.9 Iron deficiency anemia, unspecified
CPT/HCPCS: 85027

== ENCOUNTER 2018-08-08 19:10 | Inpatient (IN) | payer MEDICARE, MEDICAID ==
[2018-08-08] MEDS ORDERED: RINGERS SOLUTION,LACTATED 1,000 ML IV ONE (19:35)
[2018-08-08] MEDS ORDERED: ACETAMINOPHEN 325 MG TABLET PO ONE (19:35)
[2018-08-08] MEDS ORDERED: CEFTRIAXONE INJ 1000 MG VIAL IV ONE (19:35)
[2018-08-08] MEDS ORDERED: AZITHROMYCIN 250 MG TABLET PO ONE (19:35)
[2018-08-08] MEDS ORDERED: IPRATROPIUM/ALBUTEROL 0.5-2.5 MG/3 ML AMPUL NEB ONE (19:37)
[2018-08-08] MEDS ORDERED: METHYLPREDNISOLONE INJ 125 MG/2 ML SDV IV ONE (19:37)
--- NOTE | 2018-08-08 19:46 | ER Document Report ---
ED General - General Stated Complaint: FEVER Time Seen by Provider: 08/08/18 19:34 Primary Care Provider: ISAIAS OSORIO MD [Primary Care Provider] - Follow up as needed Cannot obtain history due to: Dementia Notes: Patient is an 87-year-old male with a past history of dementia, chronic kidney disease, chronic medical abuse, no oxygen dependence at baseline, presents by EMS due to concerns of fever, cough, difficulty breathing and change in mental status. The patient is unable to provide meaningful history, states he is not otherwise here. EMS reports that staff at the nursing facility where he resides were concerned about his change in behavior as well as his breathing pattern. They did find the patient to be febrile to 100.7 F on axillary check. Saturations were noted to be 93% in route to the hospital. EMS reports the patient had coarse wheezing in all lung soto. History otherwise limited secondary to patient's advanced dementia. TRAVEL OUTSIDE OF THE [place] IN LAST 30 DAYS: No - Related Data Allergies/Adverse Reactions: Sulfa (Sulfonamide Antibiotics) Allergy (Unknown, Verified 02/23/16 12:35) Penicillins Allergy (Verified 02/23/16 12:35) Past Medical History - General Information source: Patient, Emergency Med Personnel, [facility] Records Cannot obtain history due to: Dementia - Social History Smoking Status: Current Every Day Smoker Frequency of alcohol use: None Drug Abuse: None Lives with: [facility] Family History: Reviewed & Not Pertinent - Past Medical History Cardiac Medical History: Reports: Hx Hypertension Denies: Hx Heart Murmur Pulmonary Medical History: Reports: Hx Bronchitis, Hx Pneumonia Denies: Hx Tuberculosis Neurological Medical History: Denies: Hx Seizures Renal/ Medical History: Reports: Hx Benign Prostatic Hyperplasia. Denies: Hx Peritoneal Dialysis GI Medical History: Reports: Hx Gastroesophageal Reflux Disease. Denies: Hx Pancreatitis Musculoskeletal Medical History: Reports Hx Arthritis - legs, knees Psychiatric Medical History: Reports: Hx Depression Past Surgical History: Reports: Hx Appendectomy, Hx Tonsillectomy - Immunizations Immunizations up to date: Yes Hx Diphtheria, Pertussis, Tetanus Vaccination: Yes - patient states he had the vaccination 3 years ago Hx Pneumococcal Vaccination: 10/03/08 Review of Systems - Review of Systems Notes: Constitutional: Positive for fever. HENT: Negative for sore throat. Eyes: Negative for visual changes. Cardiovascular: Negative for chest pain. Respiratory: Positive for cough, shortness of breath Gastrointestinal: Negative for abdominal pain, vomiting or diarrhea. Genitourinary: Negative for dysuria. Musculoskeletal: Negative for back pain. Skin: Negative for rash. Neurological: Negative for headaches, weakness or numbness. 10 point ROS negative except as marked above and in HPI. Physical Exam - Vital signs Vitals: Resp BP Pulse Ox 30 H 133/100 H 95 08/08/18 19:43 08/08/18 19:43 08/08/18 19:43 Interpretation: Febrile Notes: PHYSICAL EXAMINATION: GENERAL: Frail elderly male in no acute distress HEAD: Atraumatic, normocephalic. EYES: Pupils equal round and reactive to light, extraocular movements intact, sclera anicteric, conjunctiva are normal. ENT: nares patent, oropharynx clear without exudates. Moderately dry mucous membranes. NECK: Normal range of motion, supple without lymphadenopathy LUNGS: Coarse wheezing all lung soto. Diminished at the bases bilaterally. No distress. Mild tachypnea. HEART: Regular rate and rhythm without murmurs ABDOMEN: Soft, nontender, normoactive bowel sounds. No guarding, no rebound. No masses appreciated. EXTREMITIES: Normal range of motion, no pitting or edema. No cyanosis. NEUROLOGICAL: No focal neurological deficits. Moves all extremities spontaneously and on command. PSYCH: Alert, oriented to person only SKIN: Warm, Dry, normal turgor, no rashes or lesions noted. Course - Re-evaluation Re-evalutation: 08/08/18 19:45 Patient presents with vitals and history worrisome for sepsis with probable underlying pneumonia. Labs, chest x-ray pending. Patient has been given ceftriaxone, azithromycin, 1 L fluid bolus LR, Solu-Medrol 125 mg and will be given additional duo nebulizer. Will reassess after labs and imaging have been completed. Anticipate that the patient will require hospitalization. 08/08/18 21:[address] Osorio who is accepted the patient for admission. - Vital Signs Vital signs: Temp Pulse Resp BP Pulse Ox 29 H 126/87 H 94 08/08/18 20:01 08/08/18 20:01 08/08/18 20:01 - Laboratory Result Diagrams: 08/08/18 19:20 08/08/18 19:20 Laboratory results interpreted by me: 08/08/18 08/08/18 08/08/18 19:20 19:20 19:20 Hgb 12.9 L RDW 15.0 H VBG pH 7.43 H BUN 26 H Creatinine 1.56 H Est GFR ( Amer) 51 L Est GFR (Non-Af Amer) 42 L ALT 18 L Total Protein 6.1 L Albumin 3.4 L - Diagnostic Test Radiology reviewed: Image reviewed, Reports reviewed Radiology results interpreted by me: 08/08/18 21:51 Chest x-ray: Probable infiltrate left base - EKG Interpretation by Me Additional EKG results interpreted by me: 08/08/18 19:46 Sinus rhythm, rate 74, no ST elevations or depressions. First-degree AV block. QTc is 444. Discharge - Discharge Clinical Impression: Shortness of breath Fever Qualifiers: Fever type: unspecified Qualified Code(s): R50.9 - Fever, unspecified Left lower lobe pneumonia Qualifiers: Pneumonia type: due to unspecified organism Qualified Code(s): J18.1 - Lobar pneumonia, unspecified organism Chronic kidney disease Qualifiers: Chronic kidney disease stage: unspecified stage Qualified Code(s): N18.9 - Chronic kidney disease, unspecified Condition: Fair Disposition: ADMITTED INPATIENT Admitting Provider: Heather Unit Admitted: [facility] Referrals: ISAIAS OSORIO MD [Primary Care Provider] - Follow up as needed
[2018-08-08 19:48] LABS: ABSOLUTE EOSINOPHILS # (AUTO) 0.1 10^3/uL (0.0-0.6); ABSOLUTE LYMPHOCYTES (AUTO) 1.3 10^3/uL (0.5-4.7); ABSOLUTE MONOCYTES (AUTO) 0.8 10^3/uL (0.1-1.4); ABSOLUTE NEUT (AUTO) 4.9 10^3/uL (1.7-8.2); BASOPHILS % (AUTO) 0.3 % (0-2); EOSINOPHILS % (AUTO) 0.8 % (0-6); HEMATOCRIT 38.7 % (37.9-51.0); HEMOGLOBIN 12.9 g/dL (13.5-17.0); LYMPHOCYTES % (AUTO) 17.9 % (13-45); MEAN CORPUSCULAR HEMOGLOBIN 29.4 pg (27.0-33.4); MEAN CORPUSCULAR HGB CONC 33.3 g/dL (32.0-36.0); MEAN CORPUSCULAR VOLUME 88 fl (80-97); MONOCYTES % (AUTO) 10.8 % (3-13); PLATELET COUNT 155 10^3/uL (150-450); RED BLOOD COUNT 4.39 10^6/uL (4.35-5.55); SEGMENTED NEUTROPHILS % (AUTO) 70.2 % (42-78); TOTAL CELLS COUNTED % (AUTO) 100 %; VENOUS BLOOD HCO3 23.8 mmol/L (20-32); VENOUS BLOOD PCO2 36.4 mmHg (35-63); VENOUS BLOOD PH 7.43 (7.30-7.42)
[2018-08-08 19:54] LABS: ALANINE AMINOTRANSFERASE 18 U/L (21-72); ALBUMIN 3.4 g/dL (3.5-5.0); ALKALINE PHOSPHATASE 62 U/L (38-126); ANION GAP 9 (5-19); ASPARTATE AMINO TRANSFERASE 19 U/L (17-59); BILIRUBIN,DIRECT 0.2 mg/dL (0.0-0.4); BILIRUBIN,TOTAL 0.5 mg/dL (0.2-1.3); BLOOD UREA NITROGEN 26 mg/dL (7-20); CALCIUM 8.7 mg/dL (8.4-10.2); CARBON DIOXIDE 23 mmol/L (22-30); CHLORIDE 106 mmol/L (98-107); GLUCOSE 93 mg/dL (75-110); POTASSIUM 4.1 mmol/L (3.6-5.0); SODIUM 138.3 mmol/L (137-145); TOTAL PROTEIN 6.1 g/dL (6.3-8.2)
--- NOTE | 2018-08-08 20:03 | RADIOLOGY REPORT (SQ) ---
EXAM DESCRIPTION: CHEST SINGLE VIEW COMPLETED DATE/TIME: 08/08/2018 7:53 pm REASON FOR STUDY: sob, cough, fever COMPARISON: 02/27/2018 EXAM PARAMETERS: NUMBER OF VIEWS: One view. TECHNIQUE: Single frontal radiographic view of the chest acquired. RADIATION DOSE: NA LIMITATIONS: None. FINDINGS: LUNGS AND PLEURA: Stable scarring or atelectasis of the left lung base. MEDIASTINUM AND HILAR STRUCTURES: No masses. Contour normal. HEART AND VASCULAR STRUCTURES: Cardiomegaly. BONES: No acute findings. HARDWARE: None in the chest. OTHER: No other significant finding. IMPRESSION: No acute abnormality of the lungs. Stable scarring or atelectasis of the left lung base . TECHNICAL DOCUMENTATION: JOB ID: [id number] [employer]- All Rights Reserved Reading location - IP/workstation name: [email or web address]
[2018-08-08] MEDS ORDERED: ACETAMINOPHEN 325 MG TABLET PO PRN (22:02)
[2018-08-08] MEDS ORDERED: AZTREONAM INJ 1 GM VIAL IV SCH (22:15)
--- NOTE | 2018-08-08 22:36 | EKG REPORT ---
SEVERITY:- ABNORMAL ECG - SINUS OR ECTOPIC ATRIAL RHYTHM FIRST DEGREE AV BLOCK BORDERLINE LEFT AXIS DEVIATION : Confirmed by: Naomy Dailey 08-Aug-2018 22:36:07
[2018-08-08 22:53] LABS: CREATINE KINASE MB 0.24 ng/mL (<4.55); NT PRO BNP 577 pg/mL (<450); TROPONIN I < 0.012 ng/mL
--- NOTE | 2018-08-08 22:56 | RADIOLOGY REPORT (SQ) ---
EXAM DESCRIPTION: RadLex: CT CHEST WITHOUT IV CONTRAST CLINICAL HISTORY: 87 years Male; pneumonia TECHNIQUE: CT of the chest without contrast All CT scans at this facility use dose modulation, iterative reconstruction, and/or weight based dosing when appropriate to reduce radiation dose to as low as reasonably achievable. COMPARISON: None. FINDINGS: Chest: Lungs: Peribronchial thickening associated infiltrate in the left lower lobe. Lungs are otherwise clear. No pneumothorax or pleural effusion. Mediastinum: No pericardial effusion. Mild coronary artery calcifications No enlarged mediastinal lymph nodes. Aorta: Mild scattered calcific plaque. Descending thoracic aorta is 3.5 cm. Ascending thoracic aorta is 4.2 cm. No periaortic hemorrhage. Bones:No acute bone findings. IMPRESSION: 1. Left lower lobe infiltrate, consistent with bronchopneumonia 2. Atherosclerosis, with ectatic thoracic aorta.
[2018-08-08] MEDS ORDERED: LEVOFLOXACIN 750 MG/D5W RTU 750 MG/150 ML RTUPB IV ONE (23:00)
[2018-08-08] MEDS: AZTREONAM 1 GM in DEXTROSE 5%-WATER 50 ML IV SCH (23:00)
[2018-08-08] MEDS: HEPARIN SOD (PORCINE) 5,000 UNIT/ML 1 ML SYRINGE SUBCUT SCH (23:01)
[2018-08-08 23:21] LABS: APPEARANCE,URINE CLEAR; BILIRUBIN,URINE NEGATIVE (NEGATIVE); COLOR,URINE YELLOW; GLUCOSE, URINE NEGATIVE (NEGATIVE); KETONES,URINE TRACE mg/dL (NEGATIVE); LEUKOCYTE ESTERASE,URINE NEGATIVE (NEGATIVE); NITRITE,URINE NEGATIVE (NEGATIVE); PROTEIN,URINE NEGATIVE (NEGATIVE); URINE SPECIFIC GRAVITY 1.018; UROBILINOGEN,URINE NEGATIVE mg/dL (<2.0)
[2018-08-08 23:38] LABS: ARTERIAL BLOOD BASE EXCESS -1.2 mmol/L; ARTERIAL BLOOD H2CO3 1.07 mmol/L (1.05-1.35); ARTERIAL BLOOD HCO3 22.7 mmol/L (20-24); ARTERIAL BLOOD O2 SATURATION 95.5 % (94-98); ARTERIAL BLOOD PCO2 35.7 mmHg (35-45); ARTERIAL BLOOD PH 7.42 (7.35-7.45); ARTERIAL BLOOD PO2 75.7 mmHg (80-100); ARTERIAL BLOOD TOTAL CO2 23.8 mmol/L (23-27)
[2018-08-08 23:41] LABS: ARTERIAL BLOOD FIO2 21%
[2018-08-09] MEDS: RINGERS SOLUTION,LACTATED 1,000 ML IV PRN ×2 (01:11→19:23)
[2018-08-09 04:45] LABS: ABSOLUTE LYMPHOCYTES (AUTO) 0.6 10^3/uL (0.5-4.7); ABSOLUTE MONOCYTES (AUTO) 0.1 10^3/uL (0.1-1.4); ABSOLUTE NEUT (AUTO) 4.3 10^3/uL (1.7-8.2); BASOPHILS % (AUTO) 0.1 % (0-2); HEMATOCRIT 37.7 % (37.9-51.0); HEMOGLOBIN 12.5 g/dL (13.5-17.0); LYMPHOCYTES % (AUTO) 12.8 % (13-45); MEAN CORPUSCULAR HEMOGLOBIN 29.1 pg (27.0-33.4); MEAN CORPUSCULAR HGB CONC 33.3 g/dL (32.0-36.0); MEAN CORPUSCULAR VOLUME 87 fl (80-97); MONOCYTES % (AUTO) 1.9 % (3-13); PLATELET COUNT 140 10^3/uL (150-450); RED BLOOD COUNT 4.31 10^6/uL (4.35-5.55); RED CELL DISTRIBUTION WIDTH 14.7 % (11.5-14.0); SEGMENTED NEUTROPHILS % (AUTO) 85.2 % (42-78); TOTAL CELLS COUNTED % (AUTO) 100 %
[2018-08-09 05:04] LABS: ALANINE AMINOTRANSFERASE 18 U/L (21-72); ALBUMIN 3.1 g/dL (3.5-5.0); ALKALINE PHOSPHATASE 50 U/L (38-126); ANION GAP 9 (5-19); ASPARTATE AMINO TRANSFERASE 18 U/L (17-59); BILIRUBIN,DIRECT 0.3 mg/dL (0.0-0.4); BILIRUBIN,TOTAL 0.4 mg/dL (0.2-1.3); BLOOD UREA NITROGEN 28 mg/dL (7-20); CALCIUM 8.3 mg/dL (8.4-10.2); CARBON DIOXIDE 23 mmol/L (22-30); CHLORIDE 106 mmol/L (98-107); GLUCOSE 138 mg/dL (75-110); POTASSIUM 4.3 mmol/L (3.6-5.0); SODIUM 138.4 mmol/L (137-145); TOTAL PROTEIN 5.9 g/dL (6.3-8.2)
[2018-08-09] MEDS: PANTOPRAZOLE SODIUM 40 MG TABLET.DR PO SCH (05:21)
[2018-08-09] MEDS: AZTREONAM 1 GM in DEXTROSE 5%-WATER 50 ML IV SCH ×3 (05:23→22:20)
[2018-08-09] MEDS: HEPARIN SOD (PORCINE) 5,000 UNIT/ML 1 ML SYRINGE SUBCUT SCH ×3 (05:23→22:33)
[2018-08-09] MEDS: ALBUTEROL SULFATE 0.083% NEB 2.5 MG/3 ML AMPUL NEB PRN ×2 (09:27→16:49)
[2018-08-09] MEDS: IPRATROPIUM BROMIDE 0.02% NEB 0.5 MG/2.5 ML AMPUL NEB PRN (09:27)
[2018-08-09] MEDS ORDERED: (PENDING PHARMACY ID) (Thiamine Hcl [Vitamin B-1] 100 MG) PO SCH (10:00)
[2018-08-09] MEDS ORDERED: (PENDING PHARMACY ID) (Carvedilol [Coreg 25 Mg Tablet] 12.5 MG) PO SCH (10:00)
[2018-08-09] MEDS ORDERED: [UNRECOGNIZED DRUG - OTHER] TP SCH (10:00)
[2018-08-09] MEDS: THIAMINE HCL 100 MG TABLET PO SCH (10:40)
[2018-08-09] MEDS: MEMANTINE HCL 10 MG TABLET PO SCH ×2 (10:40→17:28)
[2018-08-09] MEDS: POLYVINYL ALCOHOL 1.4% OPH SOLN 15 ML OU SCH ×2 (10:40→17:30)
[2018-08-09] MEDS: ARIPIPRAZOLE 2 MG TABLET PO SCH (10:40)
[2018-08-09] MEDS: TAMSULOSIN HCL 0.4 MG CAP.SR.24H PO SCH (10:41)
[2018-08-09] MEDS: FERROUS SULFATE 325 MG TABLET PO SCH (10:41)
[2018-08-09] MEDS: ASCORBIC ACID 500 MG TABLET PO SCH ×2 (10:41→17:29)
[2018-08-09] MEDS: CARVEDILOL 12.5 MG TABLET PO SCH ×2 (10:41→22:33)
[2018-08-09] MEDS: FINASTERIDE 5 MG TABLET PO SCH (10:41)
[2018-08-09] MEDS: CITALOPRAM HYDROBROMIDE 20 MG TABLET PO SCH (10:41)
[2018-08-09] MEDS: CALCIUM CARBONATE 500 MG TAB.CHEW PO SCH ×4 (10:42→22:35)
--- NOTE | 2018-08-09 17:51 | PDOC H&P ---
History of Present Illness Admission Date/PCP: 08/08/18 22:20 ISAIAS OSORIO MD History of Present Illness: BETTY RODRIGUEZ is a 87 year old male, He is a resident of the correction at [place], he was transferred from the correction to the hospital for evaluation of possible pneumonia. Patient was coughing, the cough was productive of sputum, a chest x-ray was done in the correction that demonstrated left lower lobe infiltrate, he was referred from the correction to the hospital for further evaluation and management of his pneumonia., In the emergency room, patient was found to be in respiratory distress, on auscultation of the chest, there was coarse diffuse wheeze in both lung field. He was treated with bronchodilators and a dose of Solu-Medrol intravenously CT chest without contrast was obtained it demonstrated peribronchial thickening with infiltrate in the left lower lobe. The temperature recorded was 101 Past Medical History Cardiac Medical History: Reports: Atrial Fibrillation, Hypertension Pulmonary Medical History: Reports: Bronchitis, Pneumonia GI Medical History: Reports: Gastroesophageal Reflux Disease Musculoskeltal Medical History: Reports: Arthritis - legs, knees Psychiatric Medical History: Reports: Depression Hematology: Reports: Anemia - Iron deficiency Past Surgical History Past Surgical History: Reports: Appendectomy, Tonsillectomy Social History Lives with: [facility] Smoking Status: Current Some Day Smoker Frequency of Alcohol Use: None Hx Recreational Drug Use: No Drugs: None Hx Prescription Drug Abuse: No Family History Family History: Reviewed & Not Pertinent Parental Family History Reviewed: Yes Children Family History Reviewed: Yes Sibling(s) Family History Reviewed.: Yes Medication/Allergy Home Medications: Acetaminophen [Tylenol 325 mg Tablet] 650 mg PO QHS 09/29/17 Aripiprazole [Abilify 2 mg Tablet] 1 mg PO DAILY 09/29/17 Ascorbic Acid [Vitamin C 500 mg Tablet] 500 mg PO BID 09/29/17 Calcium Carbonate [Tums Chewable 500 mg Tab.chew] 500 mg PO QID 09/29/17 Carvedilol [Coreg 25 mg Tablet] 12.5 mg PO Q12 09/29/17 Cholecalciferol (Vitamin D3) [Vitamin D3] 50,000 unit PO COLE@1000 09/29/17 Citalopram Hydrobromide [Celexa 20 mg Tablet] 20 mg PO DAILY 09/29/17 Ferrous Sulfate [Feosol 325 mg Tablet] 325 mg PO DAILY 09/29/17 Finasteride [Proscar 5 mg Tablet] 5 mg PO DAILY 09/29/17 Memantine HCl [Namenda 10 mg Tablet] 10 mg PO BID 09/29/17 Omeprazole 40 mg PO DAILY 09/29/17 Tamsulosin HCl [Flomax 0.4 mg Cap.sr] 0.4 mg PO DAILY 09/29/17 Thiamine HCl [Vitamin B-1] 100 mg PO DAILY 09/29/17 Acetaminophen [Tylenol] 650 mg PO Q6HP PRN 08/09/18 Eyelid Cleanser Comb No.7 [Ocusoft Lid Scrub] 1 each TP BID 08/09/18 Melatonin [Melatonin 3 mg Tablet] 3 mg PO QHS 08/09/18 Mirabegron [Myrbetriq] 25 mg PO DAILY 08/09/18 Polyvinyl Alcohol [Liquitears 1.4% Ophth Soln 15 ml] 1 drop OU BID 08/09/18 Sennosides/Docusate 8.6-50 mg [Senna Plus Tablet] 2 tab PO QHS 08/09/18 Allergies/Adverse Reactions: Sulfa (Sulfonamide Antibiotics) Allergy (Unknown, Verified 08/09/18 01:57) Penicillins Allergy (Verified 08/09/18 01:57) Review of Systems Constitutional: ABSENT: chills, fever(s), headache(s), weight gain, weight loss Eyes: ABSENT: visual disturbances Ears: ABSENT: hearing changes Cardiovascular: ABSENT: chest pain, dyspnea on exertion, edema, orthropnea, palpitations Respiratory: PRESENT: cough, dyspnea, sputum. ABSENT: hemoptysis Gastrointestinal: ABSENT: abdominal pain, constipation, diarrhea, hematemesis, hematochezia, nausea, vomiting Genitourinary: ABSENT: dysuria, hematuria Musculoskeletal: ABSENT: joint swelling Integumentary: ABSENT: rash, wounds Neurological: ABSENT: abnormal gait, abnormal speech, confusion, dizziness, focal weakness, syncope Psychiatric: ABSENT: anxiety, depression, homidical ideation, suicidal ideation Endocrine: ABSENT: cold intolerance, heat intolerance, menstrual abnormalities, polydipsia, polyuria Hematologic/Lymphatic: ABSENT: easy bleeding, easy bruising, lymphadenopathy Physical Exam Vital Signs: Temp Pulse Resp BP Pulse Ox 98.5 F 54 L 18 132/69 H 96 08/09/18 14:58 08/09/18 16:49 08/09/18 16:49 08/09/18 14:58 08/09/18 16:49 Intake & Output 08/08/18 08/09/18 08/10/18 06:59 06:59 06:59 Intake Total 1200 240 Balance 1200 240 Weight 75 kg General appearance: PRESENT: no acute distress, well-developed, well-nourished Head exam: PRESENT: atraumatic, normocephalic Eye exam: PRESENT: conjunctiva pink, EOMI, PERRLA Ear exam: PRESENT: normal external ear exam Mouth exam: PRESENT: moist, tongue midline Neck exam: PRESENT: full ROM Respiratory exam: PRESENT: wheezes Cardiovascular exam: PRESENT: RRR, +S1, +S2 Vascular exam: PRESENT: normal capillary refill GI/Abdominal exam: PRESENT: normal bowel sounds, soft Rectal exam: PRESENT: deferred Neurological exam: PRESENT: alert, CN II-XII grossly intact Psychiatric exam: PRESENT: appropriate affect, normal mood Skin exam: PRESENT: dry, intact, warm Results Laboratory Results: 08/09/18 04:19 08/09/18 04:19 08/08/18 08/08/18 08/08/18 19:20 19:20 19:20 WBC 7.0 RBC 4.39 Hgb 12.9 L Hct 38.7 MCV 88 MCH 29.4 MCHC 33.3 RDW 15.0 H Plt Count 155 Seg Neutrophils % 70.2 Lymphocytes % 17.9 Monocytes % 10.8 Eosinophils % 0.8 Basophils % 0.3 Absolute Neutrophils 4.9 Absolute Lymphocytes 1.3 Absolute Monocytes 0.8 Absolute Eosinophils 0.1 Absolute Basophils 0.0 Carbonic Acid HCO3/H2CO3 Ratio ABG pH ABG pCO2 ABG pO2 ABG HCO3 ABG O2 Saturation ABG Base Excess VBG pH VBG pCO2 VBG HCO3 VBG Base Excess FiO2 Sodium 138.3 Potassium 4.1 Chloride 106 Carbon Dioxide 23 Anion Gap 9 BUN 26 H Creatinine 1.56 H Est GFR ( Amer) 51 L Est GFR (Non-Af Amer) 42 L Glucose 93 Lactic Acid 0.7 Calcium 8.7 Magnesium Total Bilirubin 0.5 AST 19 ALT 18 L Alkaline Phosphatase 62 Total Protein 6.1 L Albumin 3.4 L Urine Color Urine Appearance Urine pH Ur Specific Endeavor Urine Protein Urine Glucose (UA) Urine Ketones Urine Blood Urine Nitrite Ur Leukocyte Esterase Urine WBC (Auto) Urine RBC (Auto) 08/08/18 08/08/18 08/08/18 19:20 22:50 23:25 WBC RBC Hgb Hct MCV MCH MCHC RDW Plt Count Seg Neutrophils % Lymphocytes % Monocytes % Eosinophils % Basophils % Absolute Neutrophils Absolute Lymphocytes Absolute Monocytes Absolute Eosinophils Absolute Basophils Carbonic Acid 1.07 HCO3/H2CO3 Ratio 21:1 ABG pH 7.42 ABG pCO2 35.7 ABG pO2 75.7 L ABG HCO3 22.7 ABG O2 Saturation 95.5 ABG Base Excess -1.2 VBG pH 7.43 H VBG pCO2 36.4 VBG HCO3 23.8 VBG Base Excess 0 FiO2 21% Sodium Potassium Chloride Carbon Dioxide Anion Gap BUN Creatinine Est GFR ( Amer) Est GFR (Non-Af Amer) Glucose Lactic Acid Calcium Magnesium Total Bilirubin AST ALT Alkaline Phosphatase Total Protein Albumin Urine Color YELLOW Urine Appearance CLEAR Urine pH 5.0 Ur Specific Endeavor 1.018 Urine Protein NEGATIVE Urine Glucose (UA) NEGATIVE Urine Ketones TRACE H Urine Blood NEGATIVE Urine Nitrite NEGATIVE Ur Leukocyte Esterase NEGATIVE Urine WBC (Auto) 1 Urine RBC (Auto) 0 08/09/18 08/09/18 08/09/18 04:19 04:19 04:19 WBC 5.0 RBC 4.31 L Hgb 12.5 L Hct 37.7 L MCV 87 MCH 29.1 MCHC 33.3 RDW 14.7 H Plt Count 140 L Seg Neutrophils % 85.2 H Lymphocytes % 12.8 L Monocytes % 1.9 L Eosinophils % 0.0 Basophils % 0.1 Absolute Neutrophils 4.3 Absolute Lymphocytes 0.6 Absolute Monocytes 0.1 Absolute Eosinophils 0.0 Absolute Basophils 0.0 Carbonic Acid HCO3/H2CO3 Ratio ABG pH ABG pCO2 ABG pO2 ABG HCO3 ABG O2 Saturation ABG Base Excess VBG pH VBG pCO2 VBG HCO3 VBG Base Excess FiO2 Sodium 138.4 Potassium 4.3 Chloride 106 Carbon Dioxide 23 Anion Gap 9 BUN 28 H Creatinine 1.32 H Est GFR ( Amer) > 60 Est GFR (Non-Af Amer) 51 L Glucose 138 H Lactic Acid Calcium 8.3 L Magnesium 1.9 Total Bilirubin 0.4 AST 18 ALT 18 L Alkaline Phosphatase 50 Total Protein 5.9 L Albumin 3.1 L Urine Color Urine Appearance Urine pH Ur Specific Endeavor Urine Protein Urine Glucose (UA) Urine Ketones Urine Blood Urine Nitrite Ur Leukocyte Esterase Urine WBC (Auto) Urine RBC (Auto) 08/08/18 08/08/18 19:20 19:20 Creatine Kinase 80 CK-MB (CK-2) 0.24 Troponin I < 0.012 NT-Pro-B Natriuret Pep 577 H Impressions: Chest CT 08/08/18 00:00 IMPRESSION: 1. Left lower lobe infiltrate, consistent with bronchopneumonia 2. Atherosclerosis, with ectatic thoracic aorta. Chest X-Ray 08/08/18 19:35 IMPRESSION: No acute abnormality of the lungs. Stable scarring or atelectasis of the left lung base. Assessment & Plan - Diagnosis (1) Left lower lobe pneumonia Qualifiers: Pneumonia type: due to unspecified organism Qualified Code(s): J18.1 - Lobar pneumonia, unspecified organism Is this a current diagnosis for this admission?: Yes Plan: Patient is resident of the correction, he has healthcare associated pneumonia (2) Chronic obstructive pulmonary disease Qualifiers: COPD type: unspecified COPD Qualified Code(s): J44.9 - Chronic obstructive pulmonary disease, unspecified Is this a current diagnosis for this admission?: Yes Plan: Treat with bronchodilators
[2018-08-09] MEDS: MELATONIN 3 MG TABLET PO SCH (22:34)
[2018-08-09] MEDS: SENNOSIDES/DOCUSATE 8.6-50 MG 1 EACH TABLET PO SCH (22:34)
[2018-08-09] MEDS: LEVOFLOXACIN 750 MG/D5W RTU 750 MG/150 ML RTUPB IV SCH (23:06)
[2018-08-10] MEDS: AZTREONAM 1 GM in DEXTROSE 5%-WATER 50 ML IV SCH ×3 (05:22→21:33)
[2018-08-10] MEDS: PANTOPRAZOLE SODIUM 40 MG TABLET.DR PO SCH (05:22)
[2018-08-10] MEDS: HEPARIN SOD (PORCINE) 5,000 UNIT/ML 1 ML SYRINGE SUBCUT SCH ×3 (05:30→21:29)
[2018-08-10 06:27] LABS: ABSOLUTE LYMPHOCYTES (AUTO) 1.3 10^3/uL (0.5-4.7); ABSOLUTE MONOCYTES (AUTO) 0.7 10^3/uL (0.1-1.4); ABSOLUTE NEUT (AUTO) 4.1 10^3/uL (1.7-8.2); BASOPHILS % (AUTO) 0.2 % (0-2); EOSINOPHILS % (AUTO) 0.5 % (0-6); HEMATOCRIT 34.9 % (37.9-51.0); HEMOGLOBIN 11.8 g/dL (13.5-17.0); LYMPHOCYTES % (AUTO) 21.5 % (13-45); MEAN CORPUSCULAR HEMOGLOBIN 29.4 pg (27.0-33.4); MEAN CORPUSCULAR HGB CONC 33.7 g/dL (32.0-36.0); MEAN CORPUSCULAR VOLUME 87 fl (80-97); MONOCYTES % (AUTO) 11.3 % (3-13); PLATELET COUNT 134 10^3/uL (150-450); RED BLOOD COUNT 4.01 10^6/uL (4.35-5.55); RED CELL DISTRIBUTION WIDTH 14.9 % (11.5-14.0); SEGMENTED NEUTROPHILS % (AUTO) 66.5 % (42-78); TOTAL CELLS COUNTED % (AUTO) 100 %; WHITE BLOOD COUNT 6.1 10^3/uL (4.0-10.5)
[2018-08-10 06:51] LABS: ALANINE AMINOTRANSFERASE 16 U/L (21-72); ALBUMIN 2.9 g/dL (3.5-5.0); ALKALINE PHOSPHATASE 51 U/L (38-126); ANION GAP 6 (5-19); ASPARTATE AMINO TRANSFERASE 18 U/L (17-59); BILIRUBIN,DIRECT 0.2 mg/dL (0.0-0.4); BILIRUBIN,TOTAL 0.3 mg/dL (0.2-1.3); BLOOD UREA NITROGEN 32 mg/dL (7-20); CALCIUM 8.6 mg/dL (8.4-10.2); CARBON DIOXIDE 24 mmol/L (22-30); CHLORIDE 106 mmol/L (98-107); GLUCOSE 98 mg/dL (75-110); SODIUM 136.2 mmol/L (137-145); TOTAL PROTEIN 5.5 g/dL (6.3-8.2)
[2018-08-10] MEDS: ACETAMINOPHEN 325 MG TABLET PO PRN (08:24)
[2018-08-10] MEDS: IPRATROPIUM BROMIDE 0.02% NEB 0.5 MG/2.5 ML AMPUL NEB PRN (10:00)
[2018-08-10] MEDS: ALBUTEROL SULFATE 0.083% NEB 2.5 MG/3 ML AMPUL NEB PRN (10:00)
[2018-08-10] MEDS: CARVEDILOL 12.5 MG TABLET PO SCH ×2 (10:17→21:31)
[2018-08-10] MEDS: FINASTERIDE 5 MG TABLET PO SCH (10:23)
[2018-08-10] MEDS: FERROUS SULFATE 325 MG TABLET PO SCH (10:23)
[2018-08-10] MEDS: CITALOPRAM HYDROBROMIDE 20 MG TABLET PO SCH (10:23)
[2018-08-10] MEDS: TAMSULOSIN HCL 0.4 MG CAP.SR.24H PO SCH (10:23)
[2018-08-10] MEDS: POLYVINYL ALCOHOL 1.4% OPH SOLN 15 ML OU SCH ×2 (10:23→17:20)
[2018-08-10] MEDS: ASCORBIC ACID 500 MG TABLET PO SCH ×2 (10:23→17:24)
[2018-08-10] MEDS: MEMANTINE HCL 10 MG TABLET PO SCH ×2 (10:23→17:24)
[2018-08-10] MEDS: CALCIUM CARBONATE 500 MG TAB.CHEW PO SCH ×4 (10:23→21:31)
[2018-08-10] MEDS: THIAMINE HCL 100 MG TABLET PO SCH (10:24)
[2018-08-10] MEDS: ARIPIPRAZOLE 2 MG TABLET PO SCH (10:24)
[2018-08-10] MEDS: RINGERS SOLUTION,LACTATED 1,000 ML IV PRN (12:19)
--- NOTE | 2018-08-10 18:49 | RADIOLOGY REPORT (SQ) ---
EXAM DESCRIPTION: CHEST SINGLE VIEW COMPLETED DATE/TIME: 08/10/2018 6:40 pm REASON FOR STUDY: possible aspiration COMPARISON: 08/08/2018 EXAM PARAMETERS: NUMBER OF VIEWS: One view. TECHNIQUE: Single frontal radiographic view of the chest acquired. RADIATION DOSE: NA LIMITATIONS: None. FINDINGS: LUNGS AND PLEURA: There is ill-defined opacification in the left base. Portions of the le ft diaphragm are indistinct. MEDIASTINUM AND HILAR STRUCTURES: No masses. Contour normal. HEART AND VASCULAR STRUCTURES: Heart normal in size. Normal vasculature. BONES: No acute findings. HARDWARE: None in the chest. OTHER: No other significant finding. IMPRESSION: Cannot exclude left lower lobe pneumonia. TECHNICAL DOCUMENTATION: JOB ID: [id number] [employer]- All Rights Reserved Reading location - IP/workstation name: [email or web address]
--- NOTE | 2018-08-10 19:55 | PDOC PROGRESS REPORT ---
Subjective Progress Note for:: 08/10/18 Subjective:: Patient seen by the bedside, he has persistent cough today Reason For Visit: PNEUMONIA Physical Exam Vital Signs: Temp Pulse Resp BP Pulse Ox 97.3 F 63 18 114/62 97 08/10/18 03:31 08/10/18 19:00 08/10/18 09:14 08/10/18 09:14 08/10/18 09:14 Intake & Output 08/09/18 08/10/18 08/11/18 06:59 06:59 06:59 Intake Total 1200 1630 1000 Output Total 0 Balance 1200 1630 1000 Weight 75 kg 62.8 kg General appearance: PRESENT: no acute distress Eye exam: PRESENT: PERRLA Respiratory exam: PRESENT: rhonchi Cardiovascular exam: PRESENT: +S1, +S2 GI/Abdominal exam: PRESENT: soft Neurological exam: PRESENT: alert Results Laboratory Results: 08/10/18 05:52 08/10/18 05:52 08/10/18 08/10/18 05:52 05:52 WBC 6.1 RBC 4.01 L Hgb 11.8 L Hct 34.9 L MCV 87 MCH 29.4 MCHC 33.7 RDW 14.9 H Plt Count 134 L Seg Neutrophils % 66.5 Lymphocytes % 21.5 Monocytes % 11.3 Eosinophils % 0.5 Basophils % 0.2 Absolute Neutrophils 4.1 Absolute Lymphocytes 1.3 Absolute Monocytes 0.7 Absolute Eosinophils 0.0 Absolute Basophils 0.0 Sodium 136.2 L Potassium 4.0 Chloride 106 Carbon Dioxide 24 Anion Gap 6 BUN 32 H Creatinine 1.45 H Est GFR ( Amer) 55 L Est GFR (Non-Af Amer) 46 L Glucose 98 Calcium 8.6 Total Bilirubin 0.3 AST 18 ALT 16 L Alkaline Phosphatase 51 Total Protein 5.5 L Albumin 2.9 L 08/08/18 08/08/18 19:20 19:20 Creatine Kinase 80 CK-MB (CK-2) 0.24 Troponin I < 0.012 NT-Pro-B Natriuret Pep 577 H Impressions: Chest CT 08/08/18 00:00 IMPRESSION: 1. Left lower lobe infiltrate, consistent with bronchopneumonia 2. Atherosclerosis, with ectatic thoracic aorta. Chest X-Ray 08/10/18 00:00 IMPRESSION: Cannot exclude left lower lobe pneumonia. Assessment & Plan - Diagnosis (1) Left lower lobe pneumonia Qualifiers: Pneumonia type: due to unspecified organism Qualified Code(s): J18.1 - Lobar pneumonia, unspecified organism Is this a current diagnosis for this admission?: Yes Plan: Continue IV antibiotic (2) Chronic obstructive pulmonary disease Qualifiers: COPD type: unspecified COPD Qualified Code(s): J44.9 - Chronic obstructive pulmonary disease, unspecified Is this a current diagnosis for this admission?: Yes Plan: Treat with bronchodilators (3) Dementia Qualifiers: Dementia type: unspecified type Dementia behavioral disturbance: without behavioral disturbance Qualified Code(s): F03.90 - Unspecified dementia without behavioral disturbance Is this a current diagnosis for this admission?: Yes
[2018-08-10] MEDS: MELATONIN 3 MG TABLET PO SCH (21:32)
[2018-08-10] MEDS: LEVOFLOXACIN 750 MG/D5W RTU 750 MG/150 ML RTUPB IV SCH (21:32)
[2018-08-10] MEDS: SENNOSIDES/DOCUSATE 8.6-50 MG 1 EACH TABLET PO SCH (21:34)
[2018-08-11] MEDS: RINGERS SOLUTION,LACTATED 1,000 ML IV PRN ×2 (02:44→13:56)
[2018-08-11 05:19] LABS: ABSOLUTE LYMPHOCYTES (AUTO) 1.5 10^3/uL (0.5-4.7); ABSOLUTE MONOCYTES (AUTO) 0.5 10^3/uL (0.1-1.4); ABSOLUTE NEUT (AUTO) 3.7 10^3/uL (1.7-8.2); BASOPHILS % (AUTO) 0.2 % (0-2); EOSINOPHILS % (AUTO) 0.7 % (0-6); HEMOGLOBIN 11.4 g/dL (13.5-17.0); LYMPHOCYTES % (AUTO) 26.3 % (13-45); MEAN CORPUSCULAR HEMOGLOBIN 29.5 pg (27.0-33.4); MEAN CORPUSCULAR HGB CONC 33.7 g/dL (32.0-36.0); MEAN CORPUSCULAR VOLUME 87 fl (80-97); MONOCYTES % (AUTO) 9.1 % (3-13); PLATELET COUNT 126 10^3/uL (150-450); RED BLOOD COUNT 3.89 10^6/uL (4.35-5.55); RED CELL DISTRIBUTION WIDTH 14.7 % (11.5-14.0); SEGMENTED NEUTROPHILS % (AUTO) 63.7 % (42-78); TOTAL CELLS COUNTED % (AUTO) 100 %; WHITE BLOOD COUNT 5.8 10^3/uL (4.0-10.5)
[2018-08-11] MEDS: HEPARIN SOD (PORCINE) 5,000 UNIT/ML 1 ML SYRINGE SUBCUT SCH ×3 (05:21→22:48)
[2018-08-11] MEDS: AZTREONAM 1 GM in DEXTROSE 5%-WATER 50 ML IV SCH ×3 (05:28→22:40)
[2018-08-11] MEDS: PANTOPRAZOLE SODIUM 40 MG TABLET.DR PO SCH (05:28)
[2018-08-11 05:29] LABS: ALANINE AMINOTRANSFERASE 16 U/L (21-72); ALBUMIN 2.7 g/dL (3.5-5.0); ALKALINE PHOSPHATASE 48 U/L (38-126); ANION GAP 5 (5-19); ASPARTATE AMINO TRANSFERASE 15 U/L (17-59); BILIRUBIN,DIRECT 0.2 mg/dL (0.0-0.4); BILIRUBIN,TOTAL 0.3 mg/dL (0.2-1.3); BLOOD UREA NITROGEN 26 mg/dL (7-20); CALCIUM 8.8 mg/dL (8.4-10.2); CARBON DIOXIDE 27 mmol/L (22-30); CHLORIDE 107 mmol/L (98-107); GLUCOSE 85 mg/dL (75-110); POTASSIUM 4.1 mmol/L (3.6-5.0); SODIUM 139.2 mmol/L (137-145); TOTAL PROTEIN 5.2 g/dL (6.3-8.2)
[2018-08-11] MEDS: CARVEDILOL 12.5 MG TABLET PO SCH ×2 (10:37→22:39)
[2018-08-11] MEDS: POLYVINYL ALCOHOL 1.4% OPH SOLN 15 ML OU SCH ×2 (10:38→17:15)
[2018-08-11] MEDS: ASCORBIC ACID 500 MG TABLET PO SCH ×2 (10:39→17:20)
[2018-08-11] MEDS: CITALOPRAM HYDROBROMIDE 20 MG TABLET PO SCH (10:39)
[2018-08-11] MEDS: THIAMINE HCL 100 MG TABLET PO SCH (10:39)
[2018-08-11] MEDS: FINASTERIDE 5 MG TABLET PO SCH (10:39)
[2018-08-11] MEDS: MEMANTINE HCL 10 MG TABLET PO SCH ×2 (10:39→17:20)
[2018-08-11] MEDS: FERROUS SULFATE 325 MG TABLET PO SCH (10:39)
[2018-08-11] MEDS: ARIPIPRAZOLE 2 MG TABLET PO SCH (10:39)
[2018-08-11] MEDS: TAMSULOSIN HCL 0.4 MG CAP.SR.24H PO SCH (10:39)
[2018-08-11] MEDS: CALCIUM CARBONATE 500 MG TAB.CHEW PO SCH ×4 (10:39→22:39)
--- NOTE | 2018-08-11 19:17 | PDOC PROGRESS REPORT ---
Subjective Progress Note for:: 08/11/18 Subjective:: Patient seen by the bedside Reason For Visit: PNEUMONIA Physical Exam Vital Signs: Temp Pulse Resp BP Pulse Ox 98.4 F 64 16 121/79 97 08/11/18 15:25 08/11/18 15:25 08/11/18 15:25 08/11/18 15:25 08/11/18 15:25 Intake & Output 08/10/18 08/11/18 08/12/18 06:59 06:59 06:59 Intake Total 1630 2150 784 Output Total 0 Balance 1630 2150 784 Weight 62.8 kg 60.8 kg General appearance: PRESENT: no acute distress Eye exam: PRESENT: PERRLA Respiratory exam: PRESENT: rhonchi Cardiovascular exam: PRESENT: +S1, +S2 GI/Abdominal exam: PRESENT: soft Results Laboratory Results: 08/11/18 04:15 08/11/18 04:15 08/11/18 08/11/18 04:15 04:15 WBC 5.8 RBC 3.89 L Hgb 11.4 L Hct 34.0 L MCV 87 MCH 29.5 MCHC 33.7 RDW 14.7 H Plt Count 126 L Seg Neutrophils % 63.7 Lymphocytes % 26.3 Monocytes % 9.1 Eosinophils % 0.7 Basophils % 0.2 Absolute Neutrophils 3.7 Absolute Lymphocytes 1.5 Absolute Monocytes 0.5 Absolute Eosinophils 0.0 Absolute Basophils 0.0 Sodium 139.2 Potassium 4.1 Chloride 107 Carbon Dioxide 27 Anion Gap 5 BUN 26 H Creatinine 1.41 H Est GFR ( Amer) 57 L Est GFR (Non-Af Amer) 47 L Glucose 85 Calcium 8.8 Total Bilirubin 0.3 AST 15 L ALT 16 L Alkaline Phosphatase 48 Total Protein 5.2 L Albumin 2.7 L 08/09/18 04:55 Sputum Gram Stain - Final 08/09/18 04:55 Sputum Sputum Culture - Final NORMAL ROSEANN 08/08/18 08/08/18 19:20 19:20 Creatine Kinase 80 CK-MB (CK-2) 0.24 Troponin I < 0.012 NT-Pro-B Natriuret Pep 577 H Impressions: Chest CT 08/08/18 00:00 IMPRESSION: 1. Left lower lobe infiltrate, consistent with bronchopneumonia 2. Atherosclerosis, with ectatic thoracic aorta. Chest X-Ray 08/10/18 00:00 IMPRESSION: Cannot exclude left lower lobe pneumonia. Assessment & Plan - Diagnosis (1) Left lower lobe pneumonia Qualifiers: Pneumonia type: due to unspecified organism Qualified Code(s): J18.1 - Lobar pneumonia, unspecified organism Is this a current diagnosis for this admission?: Yes Plan: Continue IV antibiotic (2) Chronic obstructive pulmonary disease Qualifiers: COPD type: unspecified COPD Qualified Code(s): J44.9 - Chronic obstructive pulmonary disease, unspecified Is this a current diagnosis for this admission?: Yes (3) Dementia Qualifiers: Dementia type: unspecified type Dementia behavioral disturbance: without behavioral disturbance Qualified Code(s): F03.90 - Unspecified dementia without behavioral disturbance Is this a current diagnosis for this admission?: Yes
[2018-08-11] MEDS: IPRATROPIUM/ALBUTEROL 0.5-2.5 MG/3 ML AMPUL NEB SCH (20:06)
[2018-08-11] MEDS: SENNOSIDES/DOCUSATE 8.6-50 MG 1 EACH TABLET PO SCH (22:39)
[2018-08-11] MEDS: MELATONIN 3 MG TABLET PO SCH (22:39)
[2018-08-11] MEDS: LEVOFLOXACIN 750 MG/D5W RTU 750 MG/150 ML RTUPB IV SCH (22:40)
[2018-08-11] MEDS: ACETAMINOPHEN 325 MG TABLET PO PRN (23:10)
[2018-08-12] MEDS: IPRATROPIUM/ALBUTEROL 0.5-2.5 MG/3 ML AMPUL NEB SCH ×4 (02:14→20:41)
[2018-08-12] MEDS: HEPARIN SOD (PORCINE) 5,000 UNIT/ML 1 ML SYRINGE SUBCUT SCH ×3 (05:13→22:09)
[2018-08-12] MEDS: PANTOPRAZOLE SODIUM 40 MG TABLET.DR PO SCH (05:13)
[2018-08-12] MEDS: AZTREONAM 1 GM in DEXTROSE 5%-WATER 50 ML IV SCH ×3 (05:13→22:09)
[2018-08-12] MEDS: RINGERS SOLUTION,LACTATED 1,000 ML IV PRN (09:40)
[2018-08-12] MEDS: CITALOPRAM HYDROBROMIDE 20 MG TABLET PO SCH (09:42)
[2018-08-12] MEDS: FERROUS SULFATE 325 MG TABLET PO SCH (09:42)
[2018-08-12] MEDS: CALCIUM CARBONATE 500 MG TAB.CHEW PO SCH ×4 (09:42→22:08)
[2018-08-12] MEDS: TAMSULOSIN HCL 0.4 MG CAP.SR.24H PO SCH (09:42)
[2018-08-12] MEDS: FINASTERIDE 5 MG TABLET PO SCH (09:42)
[2018-08-12] MEDS: MEMANTINE HCL 10 MG TABLET PO SCH ×2 (09:42→17:17)
[2018-08-12] MEDS: ASCORBIC ACID 500 MG TABLET PO SCH ×2 (09:42→17:17)
[2018-08-12] MEDS: POLYVINYL ALCOHOL 1.4% OPH SOLN 15 ML OU SCH ×2 (09:43→17:14)
[2018-08-12] MEDS: THIAMINE HCL 100 MG TABLET PO SCH (09:43)
[2018-08-12] MEDS: CARVEDILOL 12.5 MG TABLET PO SCH ×2 (09:43→22:08)
[2018-08-12] MEDS: ARIPIPRAZOLE 2 MG TABLET PO SCH (09:43)
--- NOTE | 2018-08-12 11:41 | PDOC PROGRESS REPORT ---
Subjective Progress Note for:: 08/12/18 Subjective:: Patient seen by the bedside, he said she is choking Reason For Visit: PNEUMONIA Physical Exam Vital Signs: Temp Pulse Resp BP Pulse Ox 97.6 F 61 18 145/80 H 98 08/12/18 07:47 08/12/18 07:47 08/12/18 03:18 08/12/18 07:47 08/12/18 07:47 Intake & Output 08/11/18 08/12/18 08/13/18 06:59 06:59 06:59 Intake Total 2150 2314 Balance 2150 2314 Weight 60.8 kg 81.3 kg General appearance: PRESENT: no acute distress Eye exam: PRESENT: PERRLA Respiratory exam: PRESENT: clear to auscultation abisai Cardiovascular exam: PRESENT: +S1, +S2 GI/Abdominal exam: PRESENT: soft Results Laboratory Results: 08/11/18 04:15 08/11/18 04:15 08/09/18 04:55 Sputum Gram Stain - Final 08/09/18 04:55 Sputum Sputum Culture - Final NORMAL ROSEANN 08/08/18 08/08/18 19:20 19:20 Creatine Kinase 80 CK-MB (CK-2) 0.24 Troponin I < 0.012 NT-Pro-B Natriuret Pep 577 H Impressions: Chest CT 08/08/18 00:00 IMPRESSION: 1. Left lower lobe infiltrate, consistent with bronchopneumonia 2. Atherosclerosis, with ectatic thoracic aorta. Chest X-Ray 08/10/18 00:00 IMPRESSION: Cannot exclude left lower lobe pneumonia. Assessment & Plan - Diagnosis (1) Left lower lobe pneumonia Qualifiers: Pneumonia type: due to unspecified organism Qualified Code(s): J18.1 - Lobar pneumonia, unspecified organism Is this a current diagnosis for this admission?: Yes Plan: Continue IV antibiotic (2) Chronic obstructive pulmonary disease Qualifiers: COPD type: unspecified COPD Qualified Code(s): J44.9 - Chronic obstructive pulmonary disease, unspecified Is this a current diagnosis for this admission?: Yes (3) Dementia Qualifiers: Dementia type: unspecified type Dementia behavioral disturbance: without behavioral disturbance Qualified Code(s): F03.90 - Unspecified dementia without behavioral disturbance Is this a current diagnosis for this admission?: Yes
[2018-08-12] MEDS: LEVOFLOXACIN 750 MG/D5W RTU 750 MG/150 ML RTUPB IV SCH (22:08)
[2018-08-12] MEDS: SENNOSIDES/DOCUSATE 8.6-50 MG 1 EACH TABLET PO SCH (22:08)
[2018-08-12] MEDS: MELATONIN 3 MG TABLET PO SCH (22:08)
[2018-08-13] MEDS: IPRATROPIUM/ALBUTEROL 0.5-2.5 MG/3 ML AMPUL NEB SCH ×4 (01:11→20:35)
[2018-08-13] MEDS: RINGERS SOLUTION,LACTATED 1,000 ML IV PRN ×2 (05:06→22:00)
[2018-08-13] MEDS: HEPARIN SOD (PORCINE) 5,000 UNIT/ML 1 ML SYRINGE SUBCUT SCH ×3 (05:08→21:15)
[2018-08-13] MEDS: PANTOPRAZOLE SODIUM 40 MG TABLET.DR PO SCH ×2 (05:08→06:18)
[2018-08-13] MEDS: AZTREONAM 1 GM in DEXTROSE 5%-WATER 50 ML IV SCH ×3 (05:08→21:15)
[2018-08-13] MEDS: CARVEDILOL 12.5 MG TABLET PO SCH ×2 (09:08→21:13)
[2018-08-13] MEDS: ARIPIPRAZOLE 2 MG TABLET PO SCH (09:13)
[2018-08-13] MEDS: THIAMINE HCL 100 MG TABLET PO SCH (09:13)
[2018-08-13] MEDS: CALCIUM CARBONATE 500 MG TAB.CHEW PO SCH ×4 (09:13→21:14)
[2018-08-13] MEDS: ASCORBIC ACID 500 MG TABLET PO SCH ×2 (09:13→17:46)
[2018-08-13] MEDS: CITALOPRAM HYDROBROMIDE 20 MG TABLET PO SCH (09:13)
[2018-08-13] MEDS: FERROUS SULFATE 325 MG TABLET PO SCH (09:13)
[2018-08-13] MEDS: FINASTERIDE 5 MG TABLET PO SCH (09:13)
[2018-08-13] MEDS: MEMANTINE HCL 10 MG TABLET PO SCH ×2 (09:13→17:46)
[2018-08-13] MEDS: POLYVINYL ALCOHOL 1.4% OPH SOLN 15 ML OU SCH ×2 (09:13→17:45)
[2018-08-13] MEDS: TAMSULOSIN HCL 0.4 MG CAP.SR.24H PO SCH (09:13)
--- NOTE | 2018-08-13 12:08 | PDOC PROGRESS REPORT ---
Subjective Progress Note for:: 08/13/18 Subjective:: Patient seen by the bedside admitted for pneumonia still coughing a lot Reason For Visit: PNEUMONIA Physical Exam Vital Signs: Temp Pulse Resp BP Pulse Ox 97.7 F 59 L 17 142/97 H 94 08/13/18 03:34 08/13/18 09:43 08/13/18 09:43 08/13/18 03:34 08/13/18 09:43 Intake & Output 08/12/18 08/13/18 08/14/18 06:59 06:59 06:59 Intake Total 2314 1690 Balance 2314 1690 Weight 81.3 kg 77.8 kg General appearance: PRESENT: no acute distress Eye exam: PRESENT: PERRLA Respiratory exam: PRESENT: clear to auscultation abisai Cardiovascular exam: PRESENT: +S1, +S2 GI/Abdominal exam: PRESENT: soft Neurological exam: PRESENT: alert Results Laboratory Results: 08/11/18 04:15 08/11/18 04:15 08/08/18 22:50 Clean Catch Midstream Urine Culture - Final Aerococcus Species C.albicans/C.dubliniensis 08/08/18 08/08/18 19:20 19:20 Creatine Kinase 80 CK-MB (CK-2) 0.24 Troponin I < 0.012 NT-Pro-B Natriuret Pep 577 H Impressions: Chest CT 08/08/18 00:00 IMPRESSION: 1. Left lower lobe infiltrate, consistent with bronchopneumonia 2. Atherosclerosis, with ectatic thoracic aorta. Chest X-Ray 08/10/18 00:00 IMPRESSION: Cannot exclude left lower lobe pneumonia. Assessment & Plan - Diagnosis (1) Left lower lobe pneumonia Qualifiers: Pneumonia type: due to unspecified organism Qualified Code(s): J18.1 - Lobar pneumonia, unspecified organism Is this a current diagnosis for this admission?: Yes Plan: Continue IV antibiotic (2) Chronic obstructive pulmonary disease Qualifiers: COPD type: unspecified COPD Qualified Code(s): J44.9 - Chronic obstructive pulmonary disease, unspecified Is this a current diagnosis for this admission?: Yes (3) Dementia Qualifiers: Dementia type: unspecified type Dementia behavioral disturbance: without behavioral disturbance Qualified Code(s): F03.90 - Unspecified dementia without behavioral disturbance Is this a current diagnosis for this admission?: Yes
[2018-08-13] MEDS: MELATONIN 3 MG TABLET PO SCH (21:13)
[2018-08-13] MEDS: SENNOSIDES/DOCUSATE 8.6-50 MG 1 EACH TABLET PO SCH (21:14)
[2018-08-13] MEDS: LEVOFLOXACIN 750 MG/D5W RTU 750 MG/150 ML RTUPB IV SCH (21:15)
[2018-08-14] MEDS: ACETAMINOPHEN 325 MG TABLET PO PRN (01:16)
[2018-08-14] MEDS: IPRATROPIUM/ALBUTEROL 0.5-2.5 MG/3 ML AMPUL NEB SCH ×4 (02:26→20:00)
[2018-08-14] MEDS: HEPARIN SOD (PORCINE) 5,000 UNIT/ML 1 ML SYRINGE SUBCUT SCH ×3 (05:56→22:51)
[2018-08-14] MEDS: AZTREONAM 1 GM in DEXTROSE 5%-WATER 50 ML IV SCH ×3 (05:56→22:52)
[2018-08-14] MEDS: PANTOPRAZOLE SODIUM 40 MG TABLET.DR PO SCH (05:56)
[2018-08-14] MEDS: ARIPIPRAZOLE 2 MG TABLET PO SCH (09:29)
[2018-08-14] MEDS: FERROUS SULFATE 325 MG TABLET PO SCH (09:30)
[2018-08-14] MEDS: CITALOPRAM HYDROBROMIDE 20 MG TABLET PO SCH (09:30)
[2018-08-14] MEDS: CARVEDILOL 12.5 MG TABLET PO SCH ×2 (09:30→22:50)
[2018-08-14] MEDS: TAMSULOSIN HCL 0.4 MG CAP.SR.24H PO SCH (09:30)
[2018-08-14] MEDS: MEMANTINE HCL 10 MG TABLET PO SCH ×2 (09:31→17:29)
[2018-08-14] MEDS: CALCIUM CARBONATE 500 MG TAB.CHEW PO SCH ×4 (09:31→22:50)
[2018-08-14] MEDS: THIAMINE HCL 100 MG TABLET PO SCH (09:31)
[2018-08-14] MEDS: POLYVINYL ALCOHOL 1.4% OPH SOLN 15 ML OU SCH ×2 (09:31→17:22)
[2018-08-14] MEDS: FINASTERIDE 5 MG TABLET PO SCH (09:31)
[2018-08-14] MEDS: ASCORBIC ACID 500 MG TABLET PO SCH ×2 (09:31→17:29)
--- NOTE | 2018-08-14 12:52 | PDOC PROGRESS REPORT ---
Subjective Progress Note for:: 08/14/18 Subjective:: Patient reported his status as been about the same. Coughing persist with minimal expectoration. No fever or chills. No chest pain. No nausea, vomiting or abdominal pain. Reason For Visit: PNEUMONIA Physical Exam Vital Signs: Temp Pulse Resp BP Pulse Ox 97.7 F 57 L 15 135/85 H 100 08/14/18 08:21 08/14/18 08:21 08/14/18 07:55 08/14/18 08:21 08/14/18 08:21 Intake & Output 08/13/18 08/14/18 08/15/18 06:59 06:59 06:59 Intake Total 1690 1870 Output Total 200 Balance 1690 1670 Weight 77.8 kg 78.8 kg General appearance: PRESENT: no acute distress, well-developed, well-nourished Head exam: PRESENT: atraumatic, normocephalic Eye exam: PRESENT: conjunctiva pink. ABSENT: scleral icterus Ear exam: PRESENT: normal external ear exam Mouth exam: PRESENT: moist Teeth exam: PRESENT: poor dentation Respiratory exam: PRESENT: crackles - scattered, decreased breath sounds Cardiovascular exam: PRESENT: RRR. ABSENT: diastolic murmur, rubs, systolic murmur Vascular exam: ABSENT: pallor GI/Abdominal exam: PRESENT: normal bowel sounds, soft. ABSENT: distended, guarding, mass, organolmegaly, rebound, tenderness Extremities exam: ABSENT: pedal edema Neurological exam: PRESENT: alert, awake Psychiatric exam: ABSENT: agitated Skin exam: PRESENT: dry, warm Results Laboratory Results: 08/11/18 04:15 08/11/18 04:15 08/08/18 22:17 Blood Blood Culture - Final NO GROWTH IN 5 DAYS 08/08/18 22:50 Clean Catch Midstream Urine Culture - Final Aerococcus Species C.albicans/C.dubliniensis 08/08/18 08/08/18 19:20 19:20 Creatine Kinase 80 CK-MB (CK-2) 0.24 Troponin I < 0.012 NT-Pro-B Natriuret Pep 577 H Impressions: Chest CT 08/08/18 00:00 IMPRESSION: 1. Left lower lobe infiltrate, consistent with bronchopneumonia 2. Atherosclerosis, with ectatic thoracic aorta. Chest X-Ray 08/10/18 00:00 IMPRESSION: Cannot exclude left lower lobe pneumonia. Assessment & Plan - Diagnosis (1) Left lower lobe pneumonia Qualifiers: Pneumonia type: due to unspecified organism Qualified Code(s): J18.1 - Lobar pneumonia, unspecified organism Is this a current diagnosis for this admission?: Yes Plan: Continue current antibiotic coverage. (2) Chronic obstructive pulmonary disease Qualifiers: COPD type: unspecified COPD Qualified Code(s): J44.9 - Chronic obstructive pulmonary disease, unspecified Is this a current diagnosis for this admission?: Yes Plan: Continue current medication. (3) Dementia Qualifiers: Dementia type: Alzheimer's disease Alzheimer's disease onset: unspecified onset Dementia behavioral disturbance: without behavioral disturbance Qualified Code(s): G30.9 - Alzheimer's disease, unspecified; F02.80 - Dementia in other diseases classified elsewhere without behavioral disturbance; F02.80 - Dementia in other diseases classified elsewhere without behavioral disturbance; F02.80 - Dementia in other diseases classified elsewhere without behavioral disturbance Is this a current diagnosis for this admission?: Yes Plan: Continue current medication. - Time Time Spent with patient: 25-34 minutes Medications reviewed and adjusted accordingly: Yes Anticipated discharge: Home with Homehealth, SNF Within: Other - Inpatient Certification Based on my medical assessment, after consideration of the patient's comorbidities, presenting symptoms, or acuity I expect that the services needed warrant INPATIENT care.: Yes I certify that my determination is in accordance with my understanding of Medicare's requirements for reasonable and necessary INPATIENT services [42 CFR 412.3e].: Yes Medical Necessity: Significant Comorbidiites Make Outpatient Treatment Too Risky, Need Close Monitoring Due to Risk of Patient Decompensation, Need For Continuous Telemetry Monitoring, Need for IV Antibiotics, Risk of Complication if Not Cared For in Hospital, Risk of Diagnosis Which Will Require Inpatient Eval/Care/Monitoring Post Hospital Care: D/C Marketing Rep Documentation, D/C or Transfer Summary - Plan Summary Plan Summary: Continue current medication.
[2018-08-14] MEDS: LEVOFLOXACIN 750 MG/D5W RTU 750 MG/150 ML RTUPB IV SCH (22:50)
[2018-08-14] MEDS: MELATONIN 3 MG TABLET PO SCH (22:50)
[2018-08-14] MEDS: SENNOSIDES/DOCUSATE 8.6-50 MG 1 EACH TABLET PO SCH (22:50)
[2018-08-15] MEDS: IPRATROPIUM/ALBUTEROL 0.5-2.5 MG/3 ML AMPUL NEB SCH ×5 (02:10→19:52)
[2018-08-15] MEDS ORDERED: ONDANSETRON HCL INJ/PF 4 MG/2 ML SDV ONE (05:14)
[2018-08-15] MEDS: ONDANSETRON HCL INJ/PF 4 MG/2 ML SDV IV PRN ×4 (05:15→20:56)
[2018-08-15] MEDS: AZTREONAM 1 GM in DEXTROSE 5%-WATER 50 ML IV SCH ×2 (05:27→15:35)
[2018-08-15] MEDS: HEPARIN SOD (PORCINE) 5,000 UNIT/ML 1 ML SYRINGE SUBCUT SCH ×3 (05:27→21:07)
[2018-08-15] MEDS: PANTOPRAZOLE SODIUM 40 MG TABLET.DR PO SCH (05:27)
[2018-08-15] MEDS ORDERED: (PENDING PHARMACY ID) (Cholecalciferol (Vitamin D3) [Vitamin D3] 50,000 UNIT) PO SCH (10:00)
[2018-08-15] MEDS: CARVEDILOL 12.5 MG TABLET PO SCH ×2 (11:10→21:06)
[2018-08-15] MEDS: THIAMINE HCL 100 MG TABLET PO SCH (11:10)
[2018-08-15] MEDS: TAMSULOSIN HCL 0.4 MG CAP.SR.24H PO SCH (11:10)
[2018-08-15] MEDS: CALCIUM CARBONATE 500 MG TAB.CHEW PO SCH ×4 (11:10→21:06)
[2018-08-15] MEDS: CITALOPRAM HYDROBROMIDE 20 MG TABLET PO SCH (11:11)
[2018-08-15] MEDS: FERROUS SULFATE 325 MG TABLET PO SCH (11:11)
[2018-08-15] MEDS: FINASTERIDE 5 MG TABLET PO SCH (11:11)
[2018-08-15] MEDS: ARIPIPRAZOLE 2 MG TABLET PO SCH (11:11)
[2018-08-15] MEDS: POLYVINYL ALCOHOL 1.4% OPH SOLN 15 ML OU SCH ×2 (11:11→17:06)
[2018-08-15] MEDS: MEMANTINE HCL 10 MG TABLET PO SCH ×2 (11:11→17:06)
[2018-08-15] MEDS: ERGOCALCIFEROL (VITAMIN D2) 50000 UNIT (1.25 MG) CAPSULE PO SCH (11:11)
[2018-08-15] MEDS: ASCORBIC ACID 500 MG TABLET PO SCH ×2 (11:11→17:07)
[2018-08-15 16:18] LABS: ABSOLUTE BASOPHILS # (AUTO) 0.1 10^3/uL (0.0-0.2); ABSOLUTE LYMPHOCYTES (AUTO) 1.1 10^3/uL (0.5-4.7); ABSOLUTE MONOCYTES (AUTO) 0.6 10^3/uL (0.1-1.4); ABSOLUTE NEUT (AUTO) 13.8 10^3/uL (1.7-8.2); BASOPHILS % (AUTO) 0.4 % (0-2); HEMATOCRIT 38.9 % (37.9-51.0); LYMPHOCYTES % (AUTO) 6.8 % (13-45); MEAN CORPUSCULAR HEMOGLOBIN 29.2 pg (27.0-33.4); MEAN CORPUSCULAR HGB CONC 33.5 g/dL (32.0-36.0); MEAN CORPUSCULAR VOLUME 87 fl (80-97); MONOCYTES % (AUTO) 3.9 % (3-13); PLATELET COUNT 217 10^3/uL (150-450); RED BLOOD COUNT 4.46 10^6/uL (4.35-5.55); RED CELL DISTRIBUTION WIDTH 14.7 % (11.5-14.0); SEGMENTED NEUTROPHILS % (AUTO) 88.9 % (42-78); TOTAL CELLS COUNTED % (AUTO) 100 %; WHITE BLOOD COUNT 15.5 10^3/uL (4.0-10.5)
[2018-08-15 16:34] LABS: ANION GAP 6 (5-19); BLOOD UREA NITROGEN 24 mg/dL (7-20); CALCIUM 8.9 mg/dL (8.4-10.2); CARBON DIOXIDE 28 mmol/L (22-30); CHLORIDE 101 mmol/L (98-107); GLUCOSE 132 mg/dL (75-110); POTASSIUM 4.5 mmol/L (3.6-5.0); SODIUM 135.3 mmol/L (137-145)
--- NOTE | 2018-08-15 17:02 | RADIOLOGY REPORT (SQ) ---
EXAM DESCRIPTION: ACUTE ABDOMEN SERIES COMPLETED DATE/TIME: 08/15/2018 4:37 pm REASON FOR STUDY: ABD pain, NV COMPARISON: 08/10/2018 and 07/02/2015 NUMBER OF VIEWS: Three views. TECHNIQUE: PA chest, supine abdomen and upright/decubitus abdomen radiographic images acquired. LIMITATIONS: None. FINDINGS: CHEST: Similar left basilar airspace opacities-effusion. FREE AIR: None. No abnormal gas collections. BOWEL GAS PATTERN: No air fluid levels or distended large or small bowel loops. Moderate stool. CALCIFICATIONS: No suspicious calcifications. HARDWARE: None in the abdomen. SOFT TISSUES: No gross mass or suggestion of organomegaly. BONES: No acute fracture. No worrisome bone lesions. OTHER: No other significant finding. IMPRESSION: No air fluid levels or distended large or small bowel loops. Moderate stool. Similar left basilar airspace opacities-effusion compared with 08/10/2018. TECHNICAL DOCUMENTATION: JOB ID: [id number] [employer]- All Rights Reserved Reading location - IP/workstation name: [email or web address]
[2018-08-15] MEDS: NORMAL SALINE 1000 ML 1,000 ML IV PRN (17:08)
[2018-08-15] MEDS ORDERED: BISACODYL 10 MG SUPP.RECT PR ONE (17:47)
--- NOTE | 2018-08-15 17:52 | PDOC PROGRESS REPORT ---
Subjective Progress Note for:: 08/15/18 Subjective:: Patient had episode of vomiting earlier today that resolved with administration of IV Zofran. His acute abdominal series suggested fecal burden. No abdominal pain. No chest pain or difficulty with breathing. Reason For Visit: PNEUMONIA Physical Exam Vital Signs: Temp Pulse Resp BP Pulse Ox 98.1 F 65 14 149/80 H 95 08/15/18 11:51 08/15/18 11:51 08/15/18 11:51 08/15/18 11:51 08/15/18 11:51 Intake & Output 08/14/18 08/15/18 08/16/18 06:59 06:59 06:59 Intake Total 1870 1999 Output Total 200 Balance 1670 1999 Weight 78.8 kg 63 kg Physical Exam: General appearance: PRESENT: no acute distress, well-developed, well-nourished Head exam: PRESENT: atraumatic, normocephalic Eye exam: PRESENT: conjunctiva pink. ABSENT: pallor, scleral icterus Ear exam: PRESENT: normal external ear exam Mouth exam: PRESENT: moist Teeth exam: PRESENT: poor dentition Respiratory exam: PRESENT: crackles - scattered, decreased breath sounds Cardiovascular exam: PRESENT: RRR. ABSENT: diastolic murmur, rubs, systolic mu rmur GI/Abdominal exam: PRESENT: normal bowel sounds, soft. ABSENT: distended, guarding, mass, organomegaly, rebound, tenderness Extremities exam: ABSENT: pedal edema Neurological exam: PRESENT: alert, awake Psychiatric exam: ABSENT: agitated Skin exam: PRESENT: dry, warm Results Laboratory Results: 08/15/18 16:00 08/15/18 16:00 08/15/18 08/15/18 16:00 16:00 WBC 15.5 H RBC 4.46 Hgb 13.0 L Hct 38.9 MCV 87 MCH 29.2 MCHC 33.5 RDW 14.7 H Plt Count 217 Seg Neutrophils % 88.9 H Lymphocytes % 6.8 L Monocytes % 3.9 Eosinophils % 0.0 Basophils % 0.4 Absolute Neutrophils 13.8 H Absolute Lymphocytes 1.1 Absolute Monocytes 0.6 Absolute Eosinophils 0.0 Absolute Basophils 0.1 Sodium 135.3 L Potassium 4.5 Chloride 101 Carbon Dioxide 28 Anion Gap 6 BUN 24 H Creatinine 1.28 H Est GFR ( Amer) > 60 Est GFR (Non-Af Amer) 53 L Glucose 132 H Calcium 8.9 08/08/18 19:20 Blood Blood Culture - Final Staphylococcus Hominis 08/08/18 08/08/18 19:20 19:20 Creatine Kinase 80 CK-MB (CK-2) 0.24 Troponin I < 0.012 NT-Pro-B Natriuret Pep 577 H Impressions: Chest CT 08/08/18 00:00 IMPRESSION: 1. Left lower lobe infiltrate, consistent with bronchopneumonia 2. Atherosclerosis, with ectatic thoracic aorta. Chest X-Ray 08/10/18 00:00 IMPRESSION: Cannot exclude left lower lobe pneumonia. Acute Abdomen Series 08/15/18 00:00 IMPRESSION: No air fluid levels or distended large or small bowel loops. Moderate stool. Similar left basilar airspace opacities-effusion compared with 08/10/2018. Assessment & Plan - Diagnosis (1) Left lower lobe pneumonia Qualifiers: Pneumonia type: due to unspecified organism Qualified Code(s): J18.1 - Lobar pneumonia, unspecified organism Is this a current diagnosis for this admission?: Yes Plan: Continue IV Levofloxacin and Aztreonam antibiotic coverage. (2) Chronic obstructive pulmonary disease Qualifiers: COPD type: unspecified COPD Qualified Code(s): J44.9 - Chronic obstructive pulmonary disease, unspecified Is this a current diagnosis for this admission?: Yes (3) Dementia Qualifiers: Dementia type: Alzheimer's disease Alzheimer's disease onset: unspecified onset Dementia behavioral disturbance: without behavioral disturbance Qualif ied Code(s): G30.9 - Alzheimer's disease, unspecified; F02.80 - Dementia in other diseases classified elsewhere without behavioral disturbance; F02.80 - Dementia in other diseases classified elsewhere without behavioral disturbance; F02.80 - Dementia in other diseases classified elsewhere without behavioral disturbance Is this a current diagnosis for this admission?: Yes (4) Constipation Qualifiers: Constipation type: unspecified constipation type Qualified Code(s): K59.00 - Constipation, unspecified Is this a current diagnosis for this admission?: Yes Plan: Administer Dulcolax 10 mg supp x 1 dose. - Time Time Spent with patient: 25-34 minutes Medications reviewed and adjusted accordingly: Yes Anticipated discharge: Home with Homehealth, SNF Within: Other - Inpatient Certification Based on my medical assessment, after consideration of the patient's comorbidities, presenting symptoms, or acuity I expect that the services needed warrant INPATIENT care.: Yes I certify that my determination is in accordance with my understanding of Medicare's requirements for reasonable and necessary INPATIENT services [42 CFR 412.3e].: Yes Medical Necessity: Significant Comorbidiites Make Outpatient Treatment Too Risky, Need Close Monitoring Due to Risk of Patient Decompensation, Need For IV Fluids, Need For Continuous Telemetry Monitoring, Need for IV Antibiotics, Risk of Complication if Not Cared For in Hospital, Risk of Diagnosis Which Will Require Inpatient Eval/Care/Monitoring Post Hospital Care: 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 See covering attending physician orders for details about care plan.
[2018-08-15] MEDS: MELATONIN 3 MG TABLET PO SCH (21:06)
[2018-08-15] MEDS: SENNOSIDES/DOCUSATE 8.6-50 MG 1 EACH TABLET PO SCH (21:06)
[2018-08-15] MEDS: LEVOFLOXACIN 750 MG/D5W RTU 750 MG/150 ML RTUPB IV SCH (21:07)
[2018-08-16] MEDS: IPRATROPIUM/ALBUTEROL 0.5-2.5 MG/3 ML AMPUL NEB SCH ×4 (02:00→20:21)
--- NOTE | 2018-08-16 02:07 | RADIOLOGY REPORT (SQ) ---
Chest single view on 08/16/2018 at 1:45 AM CLINICAL INDICATION: NG tube placement, aspiration COMPARISON: 08/15/2018 FINDINGS: New NG tube extends into the stomach and is curled in the stomach with its tip in the upper stomach. Multiple overlying wires are noted. Previous gaseous distention of the stomach has resolved. There are left greater than right basilar opacities consistent with atelectasis and/or pneumonia, this could be related to aspiration. Small left pleural effusion is likely present. Heart is borderline in size. Vascular calcification is noted in the aorta. IMPRESSION: Left greater than right basilar opacities consistent with atelectasis and/or pneumonia, this could be related to aspiration.
[2018-08-16 02:10] LABS: ABSOLUTE MONOCYTES (AUTO) 0.8 10^3/uL (0.1-1.4); ABSOLUTE NEUT (AUTO) 13.4 10^3/uL (1.7-8.2); BASOPHILS % (AUTO) 0.3 % (0-2); HEMATOCRIT 38.7 % (37.9-51.0); HEMOGLOBIN 12.8 g/dL (13.5-17.0); LYMPHOCYTES % (AUTO) 6.5 % (13-45); MEAN CORPUSCULAR HEMOGLOBIN 28.7 pg (27.0-33.4); MEAN CORPUSCULAR VOLUME 87 fl (80-97); PLATELET COUNT 232 10^3/uL (150-450); RED BLOOD COUNT 4.46 10^6/uL (4.35-5.55); RED CELL DISTRIBUTION WIDTH 14.8 % (11.5-14.0); SEGMENTED NEUTROPHILS % (AUTO) 88.2 % (42-78); TOTAL CELLS COUNTED % (AUTO) 100 %; WHITE BLOOD COUNT 15.2 10^3/uL (4.0-10.5)
[2018-08-16 02:22] LABS: ALANINE AMINOTRANSFERASE 18 U/L (21-72); ALBUMIN 2.6 g/dL (3.5-5.0); ALKALINE PHOSPHATASE 47 U/L (38-126); ANION GAP 6 (5-19); ASPARTATE AMINO TRANSFERASE 18 U/L (17-59); BILIRUBIN,DIRECT 0.2 mg/dL (0.0-0.4); BILIRUBIN,TOTAL 0.4 mg/dL (0.2-1.3); BLOOD UREA NITROGEN 30 mg/dL (7-20); CALCIUM 7.8 mg/dL (8.4-10.2); CARBON DIOXIDE 26 mmol/L (22-30); CHLORIDE 105 mmol/L (98-107); GLUCOSE 133 mg/dL (75-110); TOTAL PROTEIN 5.3 g/dL (6.3-8.2)
[2018-08-16 02:25] LABS: INTERNATIONAL RATION (INR) 1.11; PROTHROMBIN TIME 14.3 SEC (11.4-15.4)
[2018-08-16 02:26] LABS: PARTIAL THROMBOPLASTIN TIME 28.5 SEC (23.5-35.8)
[2018-08-16] MEDS: HEPARIN SOD (PORCINE) 5,000 UNIT/ML 1 ML SYRINGE SUBCUT SCH ×3 (06:18→21:53)
[2018-08-16] MEDS: PANTOPRAZOLE SODIUM 40 MG TABLET.DR PO SCH (06:19)
[2018-08-16] MEDS ORDERED: DEXTROSE 40% GEL 15 GM TUBE PO PRN ×2 (06:19)
[2018-08-16] MEDS ORDERED: GLUCAGON,HUMAN RECOMB 1 MG INJ SUBCUT PRN (06:19)
[2018-08-16] MEDS ORDERED: DEXTROSE 50%-WATER 25 GM/50 ML DISP.SYRIN IV PRN ×2 (06:19)
[2018-08-16] MEDS: ARIPIPRAZOLE 2 MG TABLET PO SCH (11:12)
[2018-08-16] MEDS: ASCORBIC ACID 500 MG TABLET PO SCH ×2 (11:12→19:02)
[2018-08-16] MEDS: FINASTERIDE 5 MG TABLET PO SCH (11:12)
[2018-08-16] MEDS: CARVEDILOL 12.5 MG TABLET PO SCH ×2 (11:12→21:51)
[2018-08-16] MEDS: TAMSULOSIN HCL 0.4 MG CAP.SR.24H PO SCH (11:12)
[2018-08-16] MEDS: THIAMINE HCL 100 MG TABLET PO SCH (11:13)
[2018-08-16] MEDS: FERROUS SULFATE 325 MG TABLET PO SCH (11:13)
[2018-08-16] MEDS: MEMANTINE HCL 10 MG TABLET PO SCH ×2 (11:13→19:02)
[2018-08-16] MEDS: CITALOPRAM HYDROBROMIDE 20 MG TABLET PO SCH (11:13)
[2018-08-16] MEDS: CALCIUM CARBONATE 500 MG TAB.CHEW PO SCH ×4 (11:17→21:51)
[2018-08-16] MEDS: POLYVINYL ALCOHOL 1.4% OPH SOLN 15 ML OU SCH ×2 (11:17→17:28)
--- NOTE | 2018-08-16 16:17 | RADIOLOGY REPORT (SQ) ---
EXAM DESCRIPTION: CT ABD/PELVIS WITH IV ONLY COMPLETED DATE/TIME: 08/16/2018 3:25 pm REASON FOR STUDY: ABD Pain and distention COMPARISON: CT chest 08/08/2018 CT abdomen pelvis 12/22/2015 TECHNIQUE: CT scan of the abdomen and pelvis performed using helical scanning technique with dynamic intravenous contrast injection. No oral contrast. Images reviewed with lung, soft tissue, and bone windows. Reconstructed coronal and sagittal MPR images reviewed. Delayed images for evaluation of the urinary system also acquired. All images stored on PACS. All CT scanners at this facility use dose modulation, iterative reconstruction, and/or weight based d osing when appropriate to reduce radiation dose to as low as reasonably achievable (ALARA). [facility]: Dose Right [facility]: CareDose [facility]: Dose Right [facility]: Teradose 4D [facility]: TransMedics CONTRAST TYPE AND DOSE: contrast/concentration: Isovue 350.00 mg/ml; Total Contrast Delivered: 88.0 ml; Total Saline Delivered: 64.0 ml RENAL FUNCTION: Creatinine 1.1 RADIATION DOSE: CT Rad equipment meets quality standard of care and radiation dose reduction techniq ues were employed. CTDIvol: 15.0 - 17.0 mGy. DLP: 2584 mGy-cm.. LIMITATIONS: None. FINDINGS: LOWER CHEST: Dense consolidation is present at the left lung base worrisome for pneumonia. This is more prominent than on 08/08/2018 CT chest. LIVER: Normal size. No masses. No dilated ducts. 13 mm cyst left lobe liver SPLEEN: Normal size. No focal lesions. PANCREAS: No masses. No significant calcifications. No adjacent inflammation or peripancreatic fluid collections. Pancreatic duct not dilated. GALLBLADDER: Question tiny stones in the gallbladder. No gallbladder wall thickening or pericholecys tic fluid. ADRENAL GLANDS: No significant masses or asymmetry. RIGHT KIDNEY AND URETER: No solid masses. Multiple right-sided parapelvic cysts. No significant oscar cifications. No hydronephrosis or hydroureter. LEFT KIDNEY AND URETER: No solid masses. Multiple left-sided parapelvic cysts. 3.2 cm cyst left low er pole kidney. No significant calcifications. No hydronephrosis or hydroureter. AORTA AND VESSELS: No aneurysm. No dissection. Renal arteries, SMA, celiac without stenosis. RETROPERITONEUM: No retroperitoneal adenopathy, hemorrhage or masses. BOWEL AND PERITONEAL CAVITY: Large amount of stool in the rectosigmoid worrisome for fecal impaction. Otherwise, moderate stool in the colon, grossly nonobstructive small bowel pattern. No free intrap eritoneal air or fluid. APPENDIX: Not visualized PELVIS: No mass. No free fluid. Normal bladder. ABDOMINAL WALL: No masses. No hernias. BONES: No significant or acute findings. OTHER: No other significant finding. IMPRESSION: Left lower lobe pneumonia Fecal impaction in the rectosigmoid TECHNICAL DOCUMENTATION: JOB ID: [id number] Quality ID # [id number]: Final reports with documentation of one or more dose reduction techniques (e.g., Au tomated exposure control, adjustment of the mA and/or kV according to patient size, use of iterative reconstruction technique) 2010 [employer]- All Rights Reserved Reading location - IP/workstation name: [email or web address]
--- NOTE | 2018-08-16 21:18 | PDOC PROGRESS REPORT ---
Subjective Progress Note for:: 08/16/18 Subjective:: Patient was seen by the bedside, he has persistent vomiting over the weekend, KUB was done, he also had a nasogastric tube insertion. A CT scan of the abdomen and pelvis with IV contrast was obtained today, it demonstrated fecal impaction extending from the rectosigmoid colon, it also showed multiple parapelvic cysts in both kidneys Reason For Visit: PNEUMONIA Physical Exam Vital Signs: Temp Pulse Resp BP Pulse Ox 98.8 F 74 16 117/79 93 08/16/18 16:41 08/16/18 19:00 08/16/18 16:41 08/16/18 16:41 08/16/18 16:41 Intake & Output 08/15/18 08/16/18 08/17/18 06:59 06:59 06:59 Intake Total 1999 663 Output Total 150 Balance 1999 663 -150 Weight 63 kg 76.7 kg Results Laboratory Results: 08/16/18 01:52 08/16/18 01:52 08/16/18 08/16/18 01:52 01:52 WBC 15.2 H RBC 4.46 Hgb 12.8 L Hct 38.7 MCV 87 MCH 28.7 MCHC 33.0 RDW 14.8 H Plt Count 232 Seg Neutrophils % 88.2 H Lymphocytes % 6.5 L Monocytes % 5.0 Eosinophils % 0.0 Basophils % 0.3 Absolute Neutrophils 13.4 H Absolute Lymphocytes 1.0 Absolute Monocytes 0.8 Absolute Eosinophils 0.0 Absolute Basophils 0.0 Sodium 137.0 Potassium 4.0 Chloride 105 Carbon Dioxide 26 Anion Gap 6 BUN 30 H Creatinine 1.11 Est GFR ( Amer) > 60 Est GFR (Non-Af Amer) > 60 Glucose 133 H Calcium 7.8 L Total Bilirubin 0.4 AST 18 ALT 18 L Alkaline Phosphatase 47 Total Protein 5.3 L Albumin 2.6 L 08/08/18 08/08/18 19:20 19:20 Creatine Kinase 80 CK-MB (CK-2) 0.24 Troponin I < 0.012 NT-Pro-B Natriuret Pep 577 H Impressions: Chest CT 08/08/18 00:00 IMPRESSION: 1. Left lower lobe infiltrate, consistent with bronchopneumonia 2. Atherosclerosis, with ectatic thoracic aorta. Acute Abdomen Series 08/15/18 00:00 IMPRESSION: No air fluid levels or distended large or small bowel loops. M oderate stool. Similar left basilar airspace opacities-effusion compared with 08/10/2018. Abdomen/Pelvis CT 08/16/18 00:00 IMPRESSION: Left lower lobe pneumonia Fecal impaction in the rectosigmoid Chest X-Ray 08/16/18 00:00 IMPRESSION: Left greater than right basilar opacities consistent with atelectasis and/or pneumonia, this could be related to aspiration. Assessment & Plan - Diagnosis (1) Left lower lobe pneumonia Qualifiers: Pneumonia type: due to unspecified organism Qualified Code(s): J18.1 - Lobar pneumonia, unspecified organism Is this a current diagnosis for this admission?: Yes Plan: The CT scan showed dense left lower lobe pneumonia, patient still symptomatic with cough we continue antibiotic for a total of 10 to 14 days (2) Chronic obstructive pulmonary disease Qualifiers: COPD type: unspecified COPD Qualified Code(s): J44.9 - Chronic obstructive pulmonary disease, unspecified Is this a current diagnosis for this admission?: Yes (3) Dementia Qualifiers: Dementia type: unspecified type Dementia behavioral disturbance: without behavioral disturbance Qualified Code(s): F03.90 - Unspecified dementia without behavioral disturbance Is this a current diagnosis for this admission?: Yes (4) Fecal impaction Is this a current diagnosis for this admission?: Yes Plan: Give molasses enema (5) Parapelvic renal cyst Is this a current diagnosis for this admission?: Yes
[2018-08-16] MEDS: SENNOSIDES/DOCUSATE 8.6-50 MG 1 EACH TABLET PO SCH (21:51)
[2018-08-16] MEDS: MELATONIN 3 MG TABLET PO SCH (21:51)
[2018-08-16] MEDS ORDERED: AZTREONAM INJ 1 GM VIAL IV PRN (22:09)
[2018-08-16] MEDS ORDERED: AZTREONAM 1 GM in DEXTROSE 5%-WATER 50 ML IV ONE (22:30)
[2018-08-16] MEDS: CLINDAMYCIN 600 MG/D5W RTU 600 MG/50 ML RTUPB IV SCH (22:40)
[2018-08-16] MEDS ORDERED: AZTREONAM INJ 1 GM VIAL ONE (23:04)
[2018-08-17] MEDS: IPRATROPIUM/ALBUTEROL 0.5-2.5 MG/3 ML AMPUL NEB SCH ×4 (02:07→21:07)
[2018-08-17] MEDS: HEPARIN SOD (PORCINE) 5,000 UNIT/ML 1 ML SYRINGE SUBCUT SCH ×3 (06:40→21:07)
[2018-08-17] MEDS: PANTOPRAZOLE SODIUM 40 MG TABLET.DR PO SCH (06:41)
[2018-08-17] MEDS ORDERED: AZTREONAM INJ 1 GM VIAL ONE (06:42)
[2018-08-17] MEDS: CLINDAMYCIN 600 MG/D5W RTU 600 MG/50 ML RTUPB IV SCH ×3 (06:42→21:11)
[2018-08-17] MEDS: AZTREONAM 1 GM in DEXTROSE 5%-WATER 50 ML IV SCH ×3 (06:47→21:11)
[2018-08-17] MEDS: NORMAL SALINE 1000 ML 1,000 ML IV PRN (06:53)
[2018-08-17] MEDS: CALCIUM CARBONATE 500 MG TAB.CHEW PO SCH ×4 (10:41→21:11)
[2018-08-17] MEDS: CARVEDILOL 12.5 MG TABLET PO SCH ×2 (10:41→21:09)
[2018-08-17] MEDS: POLYVINYL ALCOHOL 1.4% OPH SOLN 15 ML OU SCH ×2 (10:41→17:27)
[2018-08-17] MEDS: FINASTERIDE 5 MG TABLET PO SCH (10:41)
[2018-08-17] MEDS: ONDANSETRON HCL INJ/PF 4 MG/2 ML SDV IV PRN (10:45)
[2018-08-17] MEDS: FERROUS SULFATE 325 MG TABLET PO SCH (10:48)
[2018-08-17] MEDS: TAMSULOSIN HCL 0.4 MG CAP.SR.24H PO SCH (10:48)
[2018-08-17] MEDS: ARIPIPRAZOLE 2 MG TABLET PO SCH (10:48)
[2018-08-17] MEDS: MEMANTINE HCL 10 MG TABLET PO SCH ×2 (10:48→17:27)
[2018-08-17] MEDS: CITALOPRAM HYDROBROMIDE 20 MG TABLET PO SCH (10:48)
[2018-08-17] MEDS: THIAMINE HCL 100 MG TABLET PO SCH (10:49)
[2018-08-17] MEDS: ASCORBIC ACID 500 MG TABLET PO SCH ×2 (10:49→17:27)
--- NOTE | 2018-08-17 18:17 | ADVANCED CARE ---
Resuscitation Status: Do Not Resuscitate Discussion: Patient with very dense left lower lobe pneumonia, is not looking good he does not feel well I spoke to the POA patient's brother Colin, he agreeable with DNR status that is the wish of his brother as well he said
--- NOTE | 2018-08-17 18:20 | PDOC PROGRESS REPORT ---
Subjective Progress Note for:: 08/17/18 Subjective:: Patient does not look well, he does not feel good, he has a very dense left lower lobe pneumonia. Yesterday he was started on IV clindamycin and aztreonam. The IV clindamycin was added because of concern for aspiration, he has penicillin allergy, could not give Zosyn. I spoke to patient's brother, the LEXIE, about DNR status. Reason For Visit: PNEUMONIA Physical Exam Vital Signs: Temp Pulse Resp BP Pulse Ox 98.3 F 65 20 102/62 92 08/17/18 16:41 08/17/18 16:41 08/17/18 16:41 08/17/18 16:41 08/17/18 16:41 Intake & Output 08/16/18 08/17/18 08/18/18 06:59 06:59 06:59 Intake Total 663 757 100 Output Total 150 Balance 663 607 100 Weight 76.7 kg 77.2 kg General appearance: PRESENT: no acute distress Eye exam: PRESENT: PERRLA Respiratory exam: PRESENT: rhonchi Cardiovascular exam: PRESENT: +S1, +S2 GI/Abdominal exam: PRESENT: soft Neurological exam: PRESENT: alert Results Laboratory Results: 08/16/18 01:52 08/16/18 01:52 08/08/18 08/08/18 19:20 19:20 Creatine Kinase 80 CK-MB (CK-2) 0.24 Troponin I < 0.012 NT-Pro-B Natriuret Pep 577 H Impressions: Chest CT 08/08/18 00:00 IMPRESSION: 1. Left lower lobe infiltrate, consistent with bronchopneumonia 2. Atherosclerosis, with ectatic thoracic aorta. Acute Abdomen Series 08/15/18 00:00 IMPRESSION: No air fluid levels or distended large or small bowel loops. Moderate stool. Similar left basilar airspace opacities-effusion compared with 08/10/2018. Abdomen/Pelvis CT 08/16/18 00:00 IMPRESSION: Left lower lobe pneumonia Fecal impaction in the rectosigmoid Chest X-Ray 08/16/18 00:00 IMPRESSION: Left greater than right basilar opacities consistent with atelectasis and/or pneumonia, this could be related to aspiration. Assessment & Plan - Diagnosis (1) Left lower lobe pneumonia Qualifiers: Pneumonia type: due to unspecified organism Qualified Code(s): J18.1 - Lobar pneumonia, unspecified organism Is this a current diagnosis for this admission?: Yes Plan: Continue IV antibiotic (2) Chronic obstructive pulmonary disease Qualifiers: COPD type: unspecified COPD Qualified Code(s): J44.9 - Chronic obstructive pulmonary disease, unspecified Is this a current diagnosis for this admission?: Yes (3) Dementia Qualifiers: Dementia type: unspecified type Dementia behavioral disturbance: without behavioral disturbance Qualified Code(s): F03.90 - Unspecified dementia without behavioral disturbance Is this a current diagnosis for this admission?: Yes (4) Fecal impaction Is this a current diagnosis for this admission?: Yes (5) Parapelvic renal cyst Is this a current diagnosis for this admission?: Yes
[2018-08-17] MEDS: SENNOSIDES/DOCUSATE 8.6-50 MG 1 EACH TABLET PO SCH (21:11)
[2018-08-17] MEDS: MELATONIN 3 MG TABLET PO SCH (21:11)
[2018-08-18] MEDS: IPRATROPIUM/ALBUTEROL 0.5-2.5 MG/3 ML AMPUL NEB SCH ×4 (02:09→20:28)
[2018-08-18] MEDS: HEPARIN SOD (PORCINE) 5,000 UNIT/ML 1 ML SYRINGE SUBCUT SCH ×3 (05:39→21:30)
[2018-08-18] MEDS: AZTREONAM 1 GM in DEXTROSE 5%-WATER 50 ML IV SCH ×3 (05:39→21:33)
[2018-08-18] MEDS: CLINDAMYCIN 600 MG/D5W RTU 600 MG/50 ML RTUPB IV SCH ×3 (05:40→21:33)
[2018-08-18] MEDS: PANTOPRAZOLE SODIUM 40 MG TABLET.DR PO SCH (05:40)
[2018-08-18] MEDS: MEMANTINE HCL 10 MG TABLET PO SCH ×2 (09:38→17:47)
[2018-08-18] MEDS: ARIPIPRAZOLE 2 MG TABLET PO SCH (09:38)
[2018-08-18] MEDS: FERROUS SULFATE 325 MG TABLET PO SCH (09:38)
[2018-08-18] MEDS: ASCORBIC ACID 500 MG TABLET PO SCH ×2 (09:38→17:47)
[2018-08-18] MEDS: TAMSULOSIN HCL 0.4 MG CAP.SR.24H PO SCH (09:38)
[2018-08-18] MEDS: CITALOPRAM HYDROBROMIDE 20 MG TABLET PO SCH (09:38)
[2018-08-18] MEDS: CALCIUM CARBONATE 500 MG TAB.CHEW PO SCH ×4 (09:38→21:30)
[2018-08-18] MEDS: CARVEDILOL 12.5 MG TABLET PO SCH ×2 (09:39→21:31)
[2018-08-18] MEDS: FINASTERIDE 5 MG TABLET PO SCH (09:39)
[2018-08-18] MEDS: POLYVINYL ALCOHOL 1.4% OPH SOLN 15 ML OU SCH ×2 (09:39→17:33)
[2018-08-18] MEDS: THIAMINE HCL 100 MG TABLET PO SCH (09:39)
[2018-08-18] MEDS: ONDANSETRON HCL INJ/PF 4 MG/2 ML SDV IV PRN (11:01)
[2018-08-18] MEDS: NORMAL SALINE 1000 ML 1,000 ML IV PRN (14:17)
[2018-08-18] MEDS: DICYCLOMINE HCL 10 MG CAPSULE PO PRN ×2 (14:17→21:33)
--- NOTE | 2018-08-18 19:14 | PDOC PROGRESS REPORT ---
Subjective Progress Note for:: 08/18/18 Subjective:: Patient was seen by the bedside, he feels better today. Reason For Visit: PNEUMONIA Physical Exam Vital Signs: Temp Pulse Resp BP Pulse Ox 97.8 F 64 16 112/64 94 08/18/18 03:21 08/18/18 14:00 08/18/18 13:22 08/18/18 03:21 08/18/18 13:22 Intake & Output 08/17/18 08/18/18 08/19/18 06:59 06:59 06:59 Intake Total 757 1520 100 Output Total 150 Balance 607 1520 100 Weight 77.2 kg 65.9 kg General appearance: PRESENT: no acute distress Eye exam: PRESENT: PERRLA Respiratory exam: PRESENT: clear to auscultation abisai Cardiovascular exam: PRESENT: +S1, +S2 GI/Abdominal exam: PRESENT: soft Neurological exam: PRESENT: alert Results Laboratory Results: 08/16/18 01:52 08/16/18 01:52 08/08/18 08/08/18 19:20 19:20 Creatine Kinase 80 CK-MB (CK-2) 0.24 Troponin I < 0.012 NT-Pro-B Natriuret Pep 577 H Impressions: Chest CT 08/08/18 00:00 IMPRESSION: 1. Left lower lobe infiltrate, consistent with bronchopneumonia 2. Atherosclerosis, with ectatic thoracic aorta. Acute Abdomen Series 08/15/18 00:00 IMPRESSION: No air fluid levels or distended large or small bowel loops. Moderate stool. Similar left basilar airspace opacities-effusion compared with 08/10/2018. Abdomen/Pelvis CT 08/16/18 00:00 IMPRESSION: Left lower lobe pneumonia Fecal impaction in the rectosigmoid Chest X-Ray 08/16/18 00:00 IMPRESSION: Left greater than right basilar opacities consistent with atelectasis and/or pneumonia, this could be related to aspiration. Assessment & Plan - Diagnosis (1) Left lower lobe pneumonia Qualifiers: Pneumonia type: due to unspecified organism Qualified Code(s): J18.1 - Lobar pneumonia, unspecified organism Is this a current diagnosis for this admission?: Yes (2) Chronic obstructive pulmonary disease Qualifiers: COPD type: unspecified COPD Qualified Code(s): J44.9 - Chronic obstructive pulmonary disease, unspecified Is this a current diagnosis for this admission?: Yes (3) Dementia Qualifiers: Dementia type: unspecified type Dementia behavioral disturbance: without behavioral disturbance Qualified Code(s): F03.90 - Unspecified dementia withou t behavioral disturbance Is this a current diagnosis for this admission?: Yes (4) Fecal impaction Is this a current diagnosis for this admission?: Yes (5) Parapelvic renal cyst Is this a current diagnosis for this admission?: Yes
[2018-08-18] MEDS: SENNOSIDES/DOCUSATE 8.6-50 MG 1 EACH TABLET PO SCH (21:33)
[2018-08-18] MEDS: MELATONIN 3 MG TABLET PO SCH (21:33)
[2018-08-19] MEDS: IPRATROPIUM/ALBUTEROL 0.5-2.5 MG/3 ML AMPUL NEB SCH ×4 (02:04→20:20)
[2018-08-19] MEDS: CLINDAMYCIN 600 MG/D5W RTU 600 MG/50 ML RTUPB IV SCH ×3 (05:08→21:48)
[2018-08-19] MEDS: AZTREONAM 1 GM in DEXTROSE 5%-WATER 50 ML IV SCH ×3 (05:08→22:23)
[2018-08-19] MEDS: HEPARIN SOD (PORCINE) 5,000 UNIT/ML 1 ML SYRINGE SUBCUT SCH ×3 (05:08→21:44)
[2018-08-19] MEDS: PANTOPRAZOLE SODIUM 40 MG TABLET.DR PO SCH (05:08)
[2018-08-19] MEDS: FINASTERIDE 5 MG TABLET PO SCH (09:18)
[2018-08-19] MEDS: ASCORBIC ACID 500 MG TABLET PO SCH ×2 (09:18→17:01)
[2018-08-19] MEDS: TAMSULOSIN HCL 0.4 MG CAP.SR.24H PO SCH (09:18)
[2018-08-19] MEDS: POLYVINYL ALCOHOL 1.4% OPH SOLN 15 ML OU SCH ×2 (09:18→17:01)
[2018-08-19] MEDS: FERROUS SULFATE 325 MG TABLET PO SCH (09:18)
[2018-08-19] MEDS: ARIPIPRAZOLE 2 MG TABLET PO SCH (09:18)
[2018-08-19] MEDS: CALCIUM CARBONATE 500 MG TAB.CHEW PO SCH ×4 (09:19→21:45)
[2018-08-19] MEDS: CARVEDILOL 12.5 MG TABLET PO SCH ×2 (09:19→21:48)
[2018-08-19] MEDS: CITALOPRAM HYDROBROMIDE 20 MG TABLET PO SCH (09:19)
[2018-08-19] MEDS: THIAMINE HCL 100 MG TABLET PO SCH (09:19)
[2018-08-19] MEDS: MEMANTINE HCL 10 MG TABLET PO SCH ×2 (09:19→17:01)
[2018-08-19] MEDS: NORMAL SALINE 1000 ML 1,000 ML IV PRN (16:41)
--- NOTE | 2018-08-19 20:19 | PDOC PROGRESS REPORT ---
Subjective Progress Note for:: 08/19/18 Subjective:: Patient seen by the bedside, He seems to be doing better Reason For Visit: PNEUMONIA Physical Exam Vital Signs: Temp Pulse Resp BP Pulse Ox 98.4 F 62 16 125/75 97 08/19/18 15:58 08/19/18 15:58 08/19/18 15:58 08/19/18 15:58 08/19/18 15:58 Intake & Output 08/18/18 08/19/18 08/20/18 06:59 06:59 06:59 Intake Total 1865 815 9785 Balance 4393 673 1397 Weight 65.9 kg 75 kg General appearance: PRESENT: no acute distress Eye exam: PRESENT: PERRLA Respiratory exam: PRESENT: decreased breath sounds Cardiovascular exam: PRESENT: +S1, +S2 GI/Abdominal exam: PRESENT: soft Neurological exam: PRESENT: alert Results Laboratory Results: 08/16/18 01:52 08/16/18 01:52 08/08/18 08/08/18 19:20 19:20 Creatine Kinase 80 CK-MB (CK-2) 0.24 Troponin I < 0.012 NT-Pro-B Natriuret Pep 577 H Impressions: Chest CT 08/08/18 00:00 IMPRESSION: 1. Left lower lobe infiltrate, consistent with bronchopneumonia 2. Atherosclerosis, with ectatic thoracic aorta. Acute Abdomen Series 08/15/18 00:00 IMPRESSION: No air fluid levels or distended large or small bowel loops. Moderate stool. Similar left basilar airspace opacities-effusion compared with 08/10/2018. Abdomen/Pelvis CT 08/16/18 00:00 IMPRESSION: Left lower lobe pneumonia Fecal impaction in the rectosigmoid Chest X-Ray 08/16/18 00:00 IMPRESSION: Left greater than right basilar opacities consistent with atelectasis and/or pneumonia, this could be related to aspiration. Assessment & Plan - Diagnosis (1) Left lower lobe pneumonia Qualifiers: Pneumonia type: due to unspecified organism Qualified Code(s): J18.1 - Lobar pneumonia, unspecified organism Is this a current diagnosis for this admission?: Yes (2) Chronic obstructive pulmonary disease Qualifiers: COPD type: unspecified COPD Qualified Code(s): J44.9 - Chronic obstructive pulmonary disease, unspecified Is this a current diagnosis for this admission?: Yes (3) Dementia Qualifiers: Dementia type: unspecified type Dementia behavioral disturbance: without behavioral disturbance Qualified Code(s): F03.90 - Unspecified dementia without behavioral disturbance Is this a current diagnosis for this admission?: Yes (4) Fecal impaction Is this a current diagnosis for this admission?: Yes (5) Parapelvic renal cyst Is this a current diagnosis for this admission?: Yes
[2018-08-19 20:46] LABS: HEMOGLOBIN 10.5 g/dL (13.5-17.0); MEAN CORPUSCULAR HEMOGLOBIN 29.8 pg (27.0-33.4); MEAN CORPUSCULAR HGB CONC 33.8 g/dL (32.0-36.0); MEAN CORPUSCULAR VOLUME 88 fl (80-97); PLATELET COUNT 187 10^3/uL (150-450); RED BLOOD COUNT 3.53 10^6/uL (4.35-5.55); RED CELL DISTRIBUTION WIDTH 14.5 % (11.5-14.0); WHITE BLOOD COUNT 7.7 10^3/uL (4.0-10.5)
[2018-08-19 21:02] LABS: ABSOLUTE LYMPHOCYTES# (MANUAL) 1.1 10^3/uL (0.5-4.7); ABSOLUTE MONOCYTES # (MANUAL) 0.5 10^3/uL (0.1-1.4); ALANINE AMINOTRANSFERASE 17 U/L (21-72); ALBUMIN 2.4 g/dL (3.5-5.0); ALKALINE PHOSPHATASE 42 U/L (38-126); ANION GAP 7 (5-19); ASPARTATE AMINO TRANSFERASE 12 U/L (17-59); BASOPHILS % (MANUAL) 0 % (0-2); BILIRUBIN,DIRECT 0.1 mg/dL (0.0-0.4); BILIRUBIN,TOTAL 0.3 mg/dL (0.2-1.3); BLOOD UREA NITROGEN 20 mg/dL (7-20); CALCIUM 7.7 mg/dL (8.4-10.2); CARBON DIOXIDE 21 mmol/L (22-30); CHLORIDE 108 mmol/L (98-107); EOSINOPHILS % (MANUAL) 3 % (0-6); GLUCOSE 87 mg/dL (75-110); LYMPHOCYTES % (MANUAL) 14 % (13-45); MONOCYTES % (MANUAL) 6 % (3-13); PLATELET CLUMPS PRESENT; POTASSIUM 3.9 mmol/L (3.6-5.0); SEGMENTED NEUTROPHILS % (MAN) 73 % (42-78); SODIUM 135.5 mmol/L (137-145); TOTAL CELLS COUNTED 100; TOTAL PROTEIN 4.9 g/dL (6.3-8.2)
[2018-08-19 21:05] LABS: ANISOCYTOSIS SLIGHT
[2018-08-19 21:06] LABS: BURR CELLS 1+; METAMYELOCYTES % (MANUAL) 2 % (0); POIKILOCYTOSIS SLIGHT
[2018-08-19 21:07] LABS: MYELOCYTES % (MANUAL) 2 % (0)
[2018-08-19] MEDS: SENNOSIDES/DOCUSATE 8.6-50 MG 1 EACH TABLET PO SCH (21:48)
[2018-08-19] MEDS: MELATONIN 3 MG TABLET PO SCH (21:49)
[2018-08-20] MEDS: IPRATROPIUM/ALBUTEROL 0.5-2.5 MG/3 ML AMPUL NEB SCH ×4 (01:54→20:32)
[2018-08-20] MEDS: HEPARIN SOD (PORCINE) 5,000 UNIT/ML 1 ML SYRINGE SUBCUT SCH ×3 (05:34→21:18)
[2018-08-20] MEDS: CLINDAMYCIN 600 MG/D5W RTU 600 MG/50 ML RTUPB IV SCH ×3 (05:43→21:22)
[2018-08-20] MEDS: AZTREONAM 1 GM in DEXTROSE 5%-WATER 50 ML IV SCH ×3 (05:43→21:17)
[2018-08-20] MEDS: PANTOPRAZOLE SODIUM 40 MG TABLET.DR PO SCH (05:43)
[2018-08-20 06:56] LABS: HEMATOCRIT 30.2 % (37.9-51.0); HEMOGLOBIN 10.2 g/dL (13.5-17.0); MEAN CORPUSCULAR HEMOGLOBIN 29.5 pg (27.0-33.4); MEAN CORPUSCULAR HGB CONC 33.6 g/dL (32.0-36.0); MEAN CORPUSCULAR VOLUME 88 fl (80-97); PLATELET COUNT 171 10^3/uL (150-450); RED BLOOD COUNT 3.44 10^6/uL (4.35-5.55); RED CELL DISTRIBUTION WIDTH 14.7 % (11.5-14.0)
[2018-08-20 07:18] LABS: ALANINE AMINOTRANSFERASE 13 U/L (21-72); ALBUMIN 2.3 g/dL (3.5-5.0); ALKALINE PHOSPHATASE 40 U/L (38-126); ASPARTATE AMINO TRANSFERASE 13 U/L (17-59); BILIRUBIN,DIRECT 0.2 mg/dL (0.0-0.4); BILIRUBIN,TOTAL 0.3 mg/dL (0.2-1.3); BLOOD UREA NITROGEN 19 mg/dL (7-20); CALCIUM 7.7 mg/dL (8.4-10.2); GLUCOSE 100 mg/dL (75-110); POTASSIUM 3.7 mmol/L (3.6-5.0); TOTAL PROTEIN 4.7 g/dL (6.3-8.2)
[2018-08-20 07:24] LABS: ANION GAP 6 (5-19); CARBON DIOXIDE 22 mmol/L (22-30); CHLORIDE 109 mmol/L (98-107)
[2018-08-20 08:16] LABS: ABSOLUTE LYMPHOCYTES# (MANUAL) 1.1 10^3/uL (0.5-4.7); ABSOLUTE MONOCYTES # (MANUAL) 0.4 10^3/uL (0.1-1.4); BASOPHILS % (MANUAL) 0 % (0-2); EOSINOPHILS % (MANUAL) 5 % (0-6); LYMPHOCYTES % (MANUAL) 15 % (13-45); MONOCYTES % (MANUAL) 6 % (3-13); SEGMENTED NEUTROPHILS % (MAN) 74 % (42-78); TOTAL CELLS COUNTED 100
[2018-08-20 08:17] LABS: ANISOCYTOSIS SLIGHT; OVALOCYTES 1+; PLATELET COMMENT ADEQUATE; POIKILOCYTOSIS 1+; SCHISTOCYTES SLIGHT; TEAR DROP CELLS SLIGHT
[2018-08-20 10:47] LABS: PATH REVIEW PATHOLOGIST REVIEWED
[2018-08-20] MEDS: CALCIUM CARBONATE 500 MG TAB.CHEW PO SCH ×4 (11:41→21:17)
[2018-08-20] MEDS: FINASTERIDE 5 MG TABLET PO SCH (11:42)
[2018-08-20] MEDS: MEMANTINE HCL 10 MG TABLET PO SCH ×2 (11:42→17:27)
[2018-08-20] MEDS: ARIPIPRAZOLE 2 MG TABLET PO SCH (11:42)
[2018-08-20] MEDS: CARVEDILOL 12.5 MG TABLET PO SCH ×2 (11:42→21:17)
[2018-08-20] MEDS: TAMSULOSIN HCL 0.4 MG CAP.SR.24H PO SCH (11:42)
[2018-08-20] MEDS: ASCORBIC ACID 500 MG TABLET PO SCH ×2 (11:42→17:27)
[2018-08-20] MEDS: CITALOPRAM HYDROBROMIDE 20 MG TABLET PO SCH (11:43)
[2018-08-20] MEDS: THIAMINE HCL 100 MG TABLET PO SCH (11:43)
[2018-08-20] MEDS: POLYVINYL ALCOHOL 1.4% OPH SOLN 15 ML OU SCH ×2 (11:43→17:28)
[2018-08-20] MEDS: FERROUS SULFATE 325 MG TABLET PO SCH (11:43)
[2018-08-20] MEDS: NORMAL SALINE 1000 ML 1,000 ML IV PRN (12:00)
[2018-08-20] MEDS: MELATONIN 3 MG TABLET PO SCH (21:17)
[2018-08-20] MEDS: SENNOSIDES/DOCUSATE 8.6-50 MG 1 EACH TABLET PO SCH (21:17)
--- NOTE | 2018-08-20 21:43 | PDOC PROGRESS REPORT ---
Subjective Progress Note for:: 08/20/18 Subjective:: Patient seen by the bedside, He seems to be doing better Reason For Visit: PNEUMONIA Physical Exam Vital Signs: Temp Pulse Resp BP Pulse Ox 98.7 F 59 L 16 144/85 H 95 08/20/18 19:42 08/20/18 20:32 08/20/18 20:32 08/20/18 19:42 08/20/18 20:32 Intake & Output 08/19/18 08/20/18 08/21/18 06:59 06:59 06:59 Intake Total 680 1920 1490 Output Total 175 Balance 680 1745 1490 Weight 75 kg 79.1 kg General appearance: PRESENT: no acute distress Eye exam: PRESENT: PERRLA Respiratory exam: PRESENT: clear to auscultation abisai Cardiovascular exam: PRESENT: +S1, +S2 Results Laboratory Results: 08/20/18 05:38 08/20/18 05:38 08/20/18 08/20/18 05:38 05:38 WBC 7.0 RBC 3.44 L Hgb 10.2 L Hct 30.2 L MCV 88 MCH 29.5 MCHC 33.6 RDW 14.7 H Plt Count 171 Seg Neutrophils % Not Reportable Lymphocytes % Not Reportable Monocytes % Not Reportable Eosinophils % Not Reportable Basophils % Not Reportable Absolute Neutrophils Not Reportable Absolute Lymphocytes Not Reportable Absolute Monocytes Not Reportable Absolute Eosinophils Not Reportable Absolute Basophils Not Reportable Sodium 137.0 Potassium 3.7 Chloride 109 H Carbon Dioxide 22 Anion Gap 6 BUN 19 Creatinine 1.04 Est GFR ( Amer) > 60 Est GFR (Non-Af Amer) > 60 Glucose 100 Calcium 7.7 L Total Bilirubin 0.3 AST 13 L ALT 13 L Alkaline Phosphatase 40 Total Protein 4.7 L Albumin 2.3 L 08/08/18 08/08/18 19:20 19:20 Creatine Kinase 80 CK-MB (CK-2) 0.24 Troponin I < 0.012 NT-Pro-B Natriuret Pep 577 H Impressions: Chest CT 08/08/18 00:00 IMPRESSION: 1. Left lower lobe infiltrate, consistent with bronchopneumonia 2. Atherosclerosis, with ectatic thoracic aorta. Acute Abdomen Series 08/15/18 00:00 IMPRESSION: No air fluid levels or distended large or small bowel loops. Modera te stool. Similar left basilar airspace opacities-effusion compared with 08/10/2018. Abdomen/Pelvis CT 08/16/18 00:00 IMPRESSION: Left lower lobe pneumonia Fecal impaction in the rectosigmoid Chest X-Ray 08/16/18 00:00 IMPRESSION: Left greater than right basilar opacities consistent with atelectasis and/or pneumonia, this could be related to aspiration. Assessment & Plan - Diagnosis (1) Left lower lobe pneumonia Qualifiers: Pneumonia type: due to unspecified organism Qualified Code(s): J18.1 - Lobar pneumonia, unspecified organism Is this a current diagnosis for this admission?: Yes (2) Chronic obstructive pulmonary disease Qualifiers: COPD type: unspecified COPD Qualified Code(s): J44.9 - Chronic obstructive pulmonary disease, unspecified Is this a current diagnosis for this admission?: Yes (3) Dementia Qualifiers: Dementia type: unspecified type Dementia behavioral disturbance: without behavioral disturbance Qualified Code(s): F03.90 - Unspecified dementia without behavioral disturbance Is this a current diagnosis for this admission?: Yes (4) Fecal impaction Is this a current diagnosis for this admission?: Yes (5) Parapelvic renal cyst Is this a current diagnosis for this admission?: Yes
[2018-08-21] MEDS: CLINDAMYCIN 600 MG/D5W RTU 600 MG/50 ML RTUPB IV SCH ×3 (05:55→21:48)
[2018-08-21] MEDS: AZTREONAM 1 GM in DEXTROSE 5%-WATER 50 ML IV SCH ×3 (05:55→21:10)
[2018-08-21] MEDS: PANTOPRAZOLE SODIUM 40 MG TABLET.DR PO SCH (05:56)
[2018-08-21] MEDS: HEPARIN SOD (PORCINE) 5,000 UNIT/ML 1 ML SYRINGE SUBCUT SCH ×3 (05:57→21:08)
[2018-08-21] MEDS: IPRATROPIUM/ALBUTEROL 0.5-2.5 MG/3 ML AMPUL NEB SCH ×3 (08:15→19:36)
[2018-08-21] MEDS: CITALOPRAM HYDROBROMIDE 20 MG TABLET PO SCH (11:39)
[2018-08-21] MEDS: POLYVINYL ALCOHOL 1.4% OPH SOLN 15 ML OU SCH ×2 (11:39→18:03)
[2018-08-21] MEDS: CALCIUM CARBONATE 500 MG TAB.CHEW PO SCH ×4 (11:39→21:09)
[2018-08-21] MEDS: MEMANTINE HCL 10 MG TABLET PO SCH ×2 (11:43→18:02)
[2018-08-21] MEDS: FERROUS SULFATE 325 MG TABLET PO SCH (11:43)
[2018-08-21] MEDS: ARIPIPRAZOLE 2 MG TABLET PO SCH (11:43)
[2018-08-21] MEDS: FINASTERIDE 5 MG TABLET PO SCH (11:43)
[2018-08-21] MEDS: TAMSULOSIN HCL 0.4 MG CAP.SR.24H PO SCH (11:43)
[2018-08-21] MEDS: ASCORBIC ACID 500 MG TABLET PO SCH ×2 (11:44→18:02)
[2018-08-21] MEDS: CARVEDILOL 12.5 MG TABLET PO SCH ×2 (11:44→21:09)
[2018-08-21] MEDS: THIAMINE HCL 100 MG TABLET PO SCH (11:44)
--- NOTE | 2018-08-21 17:00 | PDOC PROGRESS REPORT ---
Subjective Progress Note for:: 08/21/18 Subjective:: Patient seen by the bedside, will be discharged back to half-way tomorrow, get a chest x-ray today Reason For Visit: PNEUMONIA Physical Exam Vital Signs: Temp Pulse Resp BP Pulse Ox 97.1 F 60 16 132/91 H 96 08/21/18 11:38 08/21/18 14:20 08/21/18 14:20 08/21/18 11:38 08/21/18 14:20 Intake & Output 08/20/18 08/21/18 08/22/18 06:59 06:59 06:59 Intake Total 1920 1540 100 Output Total 175 Balance 1745 1540 100 Weight 79.1 kg 77.6 kg General appearance: PRESENT: no acute distress Eye exam: PRESENT: PERRLA Respiratory exam: PRESENT: clear to auscultation abisai Cardiovascular exam: PRESENT: +S1, +S2 GI/Abdominal exam: PRESENT: soft Neurological exam: PRESENT: alert Results Laboratory Results: 08/20/18 05:38 08/20/18 05:38 08/08/18 08/08/18 19:20 19:20 Creatine Kinase 80 CK-MB (CK-2) 0.24 Troponin I < 0.012 NT-Pro-B Natriuret Pep 577 H Impressions: Chest CT 08/08/18 00:00 IMPRESSION: 1. Left lower lobe infiltrate, consistent with bronchopneumonia 2. Atherosclerosis, with ectatic thoracic aorta. Acute Abdomen Series 08/15/18 00:00 IMPRESSION: No air fluid levels or distended large or small bowel loops. Moderate stool. Similar left basilar airspace opacities-effusion compared with 08/10/2018. Abdomen/Pelvis CT 08/16/18 00:00 IMPRESSION: Left lower lobe pneumonia Fecal impaction in the rectosigmoid Chest X-Ray 08/16/18 00:00 IMPRESSION: Left greater than right basilar opacities consistent with atelectasis and/or pneumonia, this could be related to aspiration. Assessment & Plan - Diagnosis (1) Left lower lobe pneumonia Qualifiers: Pneumonia type: due to unspecified organism Qualified Code(s): J18.1 - Lobar pneumonia, unspecified organism Is this a current diagnosis for this admission?: Yes (2) Chronic obstructive pulmonary disease Qualifiers: COPD type: unspecified COPD Qualified Code(s): J44.9 - Chronic obstructive pulmonary disease, unspecified Is this a current diagnosis for this admission?: Yes (3) Dementia Qualifiers: Dementia type: unspecified type Dementia behavioral disturbance: without behavioral disturbance Qualified Code(s): F03.90 - Unspecified dementia without behavioral disturbance Is this a current diagnosis for this admission?: Yes (4) Fecal impaction Is this a current diagnosis for this admission?: Yes (5) Parapelvic renal cyst Is this a current diagnosis for this admission?: Yes
--- NOTE | 2018-08-21 18:53 | RADIOLOGY REPORT (SQ) ---
EXAM DESCRIPTION: CHEST SINGLE VIEW COMPLETED DATE/TIME: 08/21/2018 5:38 pm REASON FOR STUDY: pneumonia COMPARISON: 08/16/2018 NUMBER OF VIEWS: One view. TECHNIQUE: Single frontal radiographic view of the chest acquired. LIMITATIONS: None. FINDINGS: LUNGS AND PLEURA: There is persistent left lower lobe airspace disease and a small effusio n. Minimal right basilar airspace disease either atelectasis or pneumonia. NG tube is been removed. Upper lung soto are clear. MEDIASTINUM AND HILAR STRUCTURES: No masses. Contour normal. HEART AND VASCULAR STRUCTURES: Heart normal in size. Normal vasculature. BONES: No acute findings. HARDWARE: None in the chest. OTHER: No other significant finding. IMPRESSION: Persistent bibasilar airspace disease left greater than right. Small left effusion marisol ot be excluded. There is been no significant change from prior study. TECHNICAL DOCUMENTATION: JOB ID: [id number] [employer]- All Rights Reserved Reading location - IP/workstation name: [email or web address]
[2018-08-21] MEDS ORDERED: BISACODYL 5 MG TABEC PO ONE (19:00)
[2018-08-21] MEDS: SENNOSIDES/DOCUSATE 8.6-50 MG 1 EACH TABLET PO SCH (21:09)
[2018-08-21] MEDS: MELATONIN 3 MG TABLET PO SCH (21:09)
[2018-08-22] MEDS: HEPARIN SOD (PORCINE) 5,000 UNIT/ML 1 ML SYRINGE SUBCUT SCH ×2 (05:00→13:14)
[2018-08-22] MEDS: AZTREONAM 1 GM in DEXTROSE 5%-WATER 50 ML IV SCH ×2 (05:01→13:14)
[2018-08-22] MEDS: PANTOPRAZOLE SODIUM 40 MG TABLET.DR PO SCH (05:02)
[2018-08-22] MEDS: CLINDAMYCIN 600 MG/D5W RTU 600 MG/50 ML RTUPB IV SCH ×2 (05:39→13:14)
[2018-08-22] MEDS: IPRATROPIUM/ALBUTEROL 0.5-2.5 MG/3 ML AMPUL NEB SCH ×2 (08:30→13:53)
[2018-08-22] MEDS: CALCIUM CARBONATE 500 MG TAB.CHEW PO SCH ×2 (11:43→13:12)
[2018-08-22] MEDS: FINASTERIDE 5 MG TABLET PO SCH (11:43)
[2018-08-22] MEDS: TAMSULOSIN HCL 0.4 MG CAP.SR.24H PO SCH (11:43)
[2018-08-22] MEDS: CARVEDILOL 12.5 MG TABLET PO SCH (11:44)
[2018-08-22] MEDS: MEMANTINE HCL 10 MG TABLET PO SCH (11:44)
[2018-08-22] MEDS: FERROUS SULFATE 325 MG TABLET PO SCH (11:44)
[2018-08-22] MEDS: ARIPIPRAZOLE 2 MG TABLET PO SCH (11:44)
[2018-08-22] MEDS: THIAMINE HCL 100 MG TABLET PO SCH (11:44)
[2018-08-22] MEDS: ERGOCALCIFEROL (VITAMIN D2) 50000 UNIT (1.25 MG) CAPSULE PO SCH (11:45)
[2018-08-22] MEDS: CITALOPRAM HYDROBROMIDE 20 MG TABLET PO SCH (11:46)
[2018-08-22] MEDS: ASCORBIC ACID 500 MG TABLET PO SCH (11:46)
[2018-08-22] MEDS: POLYVINYL ALCOHOL 1.4% OPH SOLN 15 ML OU SCH (11:47)
--- NOTE | 2018-08-22 12:32 | PDOC TRANSFER SUMMARY ---
General - Admit/Disc Date/PCP Admission Date/Primary Care Provider: 08/08/18 22:20 ISAIAS OSORIO MD Discharge Date: 08/22/18 - Discharge Diagnosis (1) Left lower lobe pneumonia Is this a current diagnosis for this admission?: Yes (2) Chronic obstructive pulmonary disease Is this a current diagnosis for this admission?: Yes (3) Dementia Is this a current diagnosis for this admission?: Yes (4) Fecal impaction Is this a current diagnosis for this admission?: Yes (5) Parapelvic renal cyst Is this a current diagnosis for this admission?: Yes (6) Chronic kidney disease, stage 3 Is this a current diagnosis for this admission?: Yes - Additional Information Resuscitation Status: Do Not Resuscitate Discharge Diet: Regular Home Medications: Acetaminophen [Tylenol 325 mg Tablet] 650 mg PO QHS 09/29/17 Aripiprazole [Abilify 2 mg Tablet] 1 mg PO DAILY 09/29/17 Ascorbic Acid [Vitamin C 500 mg Tablet] 500 mg PO BID 09/29/17 Calcium Carbonate [Tums Chewable 500 mg Tab.chew] 500 mg PO QID 09/29/17 Carvedilol [Coreg 25 mg Tablet] 12.5 mg PO Q12 09/29/17 Cholecalciferol (Vitamin D3) [Vitamin D3] 50,000 unit PO COLE@1000 09/29/17 Citalopram Hydrobromide [Celexa 20 mg Tablet] 20 mg PO DAILY 09/29/17 Ferrous Sulfate [Feosol 325 mg Tablet] 325 mg PO DAILY 09/29/17 Finasteride [Proscar 5 mg Tablet] 5 mg PO DAILY 09/29/17 Memantine HCl [Namenda 10 mg Tablet] 10 mg PO BID 09/29/17 Omeprazole 40 mg PO DAILY 09/29/17 Tamsulosin HCl [Flomax 0.4 mg Cap.sr] 0.4 mg PO DAILY 09/29/17 Thiamine HCl [Vitamin B-1] 100 mg PO DAILY 09/29/17 Acetaminophen [Tylenol] 650 mg PO Q6HP PRN 08/09/18 Eyelid Cleanser Comb No.7 [Ocusoft Lid Scrub] 1 each TP BID 08/09/18 Melatonin [Melatonin 3 mg Tablet] 3 mg PO QHS 08/09/18 Mirabegron [Myrbetriq] 25 mg PO DAILY 08/09/18 Polyvinyl Alcohol [Liquitears 1.4% Ophth Soln 15 ml] 1 drop OU BID 08/09/18 Sennosides/Docusate 8.6-50 mg [Senna Plus Tablet] 2 tab PO QHS 08/09/18 Dicyclomine HCl [Bentyl 10 mg Capsule] 10 mg PO Q6HP PRN capsule 08/22/18 Ipratropium/Albuterol Sulfate [Duoneb 3 ml Ampul] 3 ml NEB [id number] vial.neb 08/22/18 History of Present Illness Admission Date/PCP: 08/08/18 22:20 ISAIAS OSORIO MD History of Present Illness: BETTY RODRIGUEZ is a 87 year old male, He is a resident of the [facility] at [place], he was transferred from the [facility] to the hospital for evaluation of possible pneumonia. Patient was coughing, the cough was productive of sputum, a chest x-ray was done in the [facility] that demonstrated left lower lobe infiltrate, he was referred from the [facility] to the hospital for further evaluation and management of his pneumonia., In the emergency room, patient was found to be in respiratory distress, on auscultation of the chest, there was coarse diffuse wheeze in both lung field. He was treated with bronchodilators and a dose of Solu-Medrol intravenously CT chest without contrast was obtained it demonstrated peribronchial thickening with infiltrate in the left lower lobe. The temperature recorded was 101 Hospital Course Hospital Course: Patient was admitted for the management of left lower lobe pneumonia, he was treated with IV antibiotic, he had episode of aspiration in the hospital. He had a prolonged hospital stay because the pneumonia was severe. He was also made a DNR status on this admission the blood culture grew Staphylococcus ho minis most likely contaminant. He had episode of abdominal distention and pain, CAT scan of the abdomen and pelvis with IV contrast was obtained, it again demonstrated dense consolidation in the left lung base worrisome for pneumonia the pancreas was normal there was fecal impaction demonstrated on the CAT scan of the abdomen, he required enema,molases, it was also manually deimpacted Physical Exam Vital Signs: Temp Pulse Resp BP Pulse Ox 98.8 F 72 18 103/70 95 08/22/18 08:51 08/22/18 08:51 08/22/18 08:51 08/22/18 08:51 08/22/18 08:51 Intake & Output 08/21/18 08/22/18 08/23/18 06:59 06:59 06:59 Intake Total 1540 1030 Balance 1540 1030 Weight 77.6 kg 75 kg General appearance: PRESENT: no acute distress Eye exam: PRESENT: PERRLA Respiratory exam: PRESENT: clear to auscultation abisai Cardiovascular exam: PRESENT: +S1, +S2 GI/Abdominal exam: PRESENT: soft Neurological exam: PRESENT: alert, CN II-XII grossly intact Results Laboratory Results: 08/20/18 05:38 08/20/18 05:38 08/08/18 08/08/18 19:20 19:20 Creatine Kinase 80 CK-MB (CK-2) 0.24 Troponin I < 0.012 NT-Pro-B Natriuret Pep 577 H Impressions: Chest CT 08/08/18 00:00 IMPRESSION: 1. Left lower lobe infiltrate, consistent with bronchopneumonia 2. Atherosclerosis, with ectatic thoracic aorta. Acute Abdomen Series 08/15/18 00:00 IMPRESSION: No air fluid levels or distended large or small bowel loops. Moderate stool. Similar left basilar airspace opacities-effusion compared with 08/10/2018. Abdomen/Pelvis CT 08/16/18 00:00 IMPRESSION: Left lower lobe pneumonia Fecal impaction in the rectosigmoid Chest X-Ray 08/21/18 00:00 IMPRESSION: Persistent bibasilar airspace disease left greater than right. Small left effusion cannot be excluded. There is been no significant change from prior study. Qualifiers - * PATIENT BEING DISCHARGED WITH ANY OF THE FOLLOWING DIAGNOSIS: No VTE patient discharged on overlapping Therapy?: No Reason(s) for not prescribing Overlap Therapy:: Not indicated Stroke Pt being discharged on Anti-thrombolytic therapy?: No Reason(s) for not prescribing Anti-thrombolytic therapy:: Not indicated Stroke Pt being discharged on Anti-coagulation therapy?: No Reason(s) for not prescribing Anti-coagulation therapy:: Not indicated Stroke Pt being discharged on Statins?: No Reason(s) for not prescribing Statins therapy:: Not indicated OH Pt being discharged on Aspirin therapy?: No Reason(s) for not prescribing Aspirin therapy:: Not indicated OH Pt being discharged on Statins?: No Reason(s) for not prescribing Statin therapy:: Not indicated OH Pt discharged ACEI/ARBS?: No Acute Heart Failure - Is this a Heart Failure Patient?: No e) For LVEF <35%, discharged on Aldosterone antagonist?: N/A (LVEF > or = 35%)
[2018-08-22 15:09] VITALS: BP 108/67
== END 2018-08-22 15:54 | DRG 195 ==
LOC: ER 19:10 → EH 22:20 → 3S 08-09 00:50
PROVIDERS: ADMIT Internal Medicine; ATTEND Internal Medicine
DX: J18.9 Pneumonia, unspecified organism (principal); J44.9 Chronic obstructive pulmonary disease, unspecified; I12.9 Hypertensive chronic kidney disease with stage 1 through stage 4 chronic kidney disease, or unspecified chronic kidney disease; K21.9 Gastro-esophageal reflux disease without esophagitis; N18.9 Chronic kidney disease, unspecified; I48.91 Unspecified atrial fibrillation; N28.1 Cyst of kidney, acquired; G30.9 Alzheimer's disease, unspecified; F02.80 Dementia in other diseases classified elsewhere, unspecified severity, without behavioral disturbance, psychotic disturbance, mood disturbance, and anxiety; F17.210 Nicotine dependence, cigarettes, uncomplicated; K59.00 Constipation, unspecified; Z88.0 Allergy status to penicillin; Z88.2 Allergy status to sulfonamides
CPT/HCPCS: 36415; 36600; 71045; 71250; 74022; 74177; 80048; 80053; 81001; 82271; 82550; 82553; 82803; 82962; 83036; 83605; 83735; 83880; 84484; 85025; 85610; 85730; 87040; 87070; 87077; 87086; 87088; 87186; 87205; 93005; 93010; 96365; 99285; J0696; J1644; J1956; J2405; J2930; J3490; J7030; J7060; J7120; J7620

== ENCOUNTER 2018-08-30 05:57 | Observation (INO) | payer MEDICARE, MEDICAID ==
[2018-08-30] MEDS ORDERED: FAMOTIDINE INJ/PF 20 MG/2 ML SDV IV ONE (06:22)
[2018-08-30] MEDS ORDERED: ONDANSETRON HCL INJ/PF 4 MG/2 ML SDV IV ONE (06:22)
--- NOTE | 2018-08-30 06:26 | ER Document Report ---
ED General - General Stated Complaint: CHEST PAIN Time Seen by Provider: 08/30/18 06:09 Primary Care Provider: ISAIAS OSORIO MD [Primary Care Provider] - Follow up as needed Notes: 87-year-old male sent from alf for nausea vomiting of dark emesis. 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 States he is having some burning in his epigastrium rating up into his chest. States he vomited several times and it was dark. Denies any keisha blood. Describes the level discomfort in his epigastrium as moderate and burning nothing really made it better or worse once he started vomiting. Denies calf pain or leg swelling. Denies shortness of breath denies diaphoresis. Denies diarrhea or constipation denies dark stools denies bloody stools. TRAVEL OUTSIDE OF THE [place] IN LAST 30 DAYS: No - Related Data Allergies/Adverse Reactions: Sulfa (Sulfonamide Antibiotics) Allergy (Unknown, Verified 08/30/18 06:35) Penicillins Allergy (Verified 08/30/18 06:35) Past Medical History - Social History Smoking Status: Unknown if Ever Smoked Family History: Reviewed & Not Pertinent - Past Medical History Cardiac Medical History: Reports: Hx Atrial Fibrillation, Hx Hypertension Denies: Hx Heart Murmur Pulmonary Medical History: Reports: Hx Bronchitis, Hx Pneumonia Denies: Hx Tuberculosis Neurological Medical History: Denies: Hx Seizures Renal/ Medical History: Reports: Hx Benign Prostatic Hyperplasia. Denies: Hx Peritoneal Dialysis GI Medical History: Reports: Hx Gastroesophageal Reflux Disease. Denies: Hx Pancreatitis Musculoskeletal Medical History: Reports Hx Arthritis - legs, knees Psychiatric Medical History: Reports: Hx Depression Past Surgical History: Reports: Hx Appendectomy, Hx Tonsillectomy - Immunizations Immunizations up to date: Yes Hx Diphtheria, Pertussis, Tetanus Vaccination: Yes - patient states he had the vaccination 3 years ago Hx Pneumococcal Vaccination: 10/03/08 Review of Systems - Review of Systems Constitutional: denies: Chills, Fever Cardiovascular: Chest pain. denies: Heart racing, Edema Respiratory: denies: Cough, Hurts to breathe, Short of breath Gastrointestinal: Abdominal pain, Nausea, Vomiting. denies: Diarrhea, Constipation, Blood streaked bowels, Black stools, Rectal bleeding Genitourinary: denies: Dysuria Musculoskeletal: denies: Back pain Neurological/Psychological: denies: Headaches -: Yes All other systems reviewed and negative Physical Exam - Vital signs Vitals: Resp BP Pulse Ox 22 H 98/69 L 94 08/30/18 06:04 08/30/18 06:04 08/30/18 06:04 - Notes Notes: GENERAL_APPEARANCE: well_nourished, alert, cooperative VITALS: reviewed, see vital signs table. HEAD: no_swelling\tenderness on the head. EYES: PERRL, EOMI, conjunctiva_clear. NOSE: no_nasal_discharge. MOUTH: (-)decreased moisture. THROAT: no_tonsilar_inflammation, no_airway_obstruction. no_lymphadenopathy NECK: supple, no_neck_tenderness, (-)thyromegaly. BACK: no_back_tenderness. CHEST_WALL: no_chest_tenderness. LUNGS: no_wheezing, no_rales, no_rhonchi, (-)accessory muscle use, good air exchange bilateral. HEART: normal_rate, normal_rhythm, normal_S1, normal_S2, (-)S3, (-)S4, no_murmur, no_rub. ABDOMEN: normal_BS, soft, epigastric_abd_tenderness, (-)guarding, (-)rebound, no_organomegaly, no_abd_masses. EXTREMITIES:good pulses in all_extremities, no_swelling\tenderness in the extremities, no_edema. SKIN: warm, dry, good_color, no_rash. MENTAL_STATUS: speech_clear, oriented_X_3, normal_affect, responds_appropriately to questions. Course - Re-evaluation Re-evalutation: 08/30/18 09:22 87-year-old male was sent over to the ER for coffee-ground emesis. Patient had a pretty soft abdomen here. Abdominal series showed no obstructive pattern chronic changes. Hemoglobin is stable. I did guaiac him from below and he was guaiac negative. He does have emesis on his gown which is consistent with coffee-ground emesis. I did not get enough to Gastroccult. The patient was given Pepcid. I spoke with his primary care who will bring him in the hospital continue upper GI work-up. - Vital Signs Vital signs: Temp Pulse Resp BP Pulse Ox 21 H 126/76 H 95 08/30/18 08:27 08/30/18 08:27 08/30/18 08:27 - Laboratory Result Diagrams: 08/30/18 06:15 08/30/18 06:15 Laboratory results interpreted by me: 08/30/18 08/30/18 06:15 06:15 WBC 12.8 H RBC 4.31 L Hgb 12.6 L RDW 15.3 H Seg Neutrophils % 87.3 H Lymphocytes % 8.4 L Absolute Neutrophils 11.2 H BUN 23 H Creatinine 1.30 H Est GFR (Non-Af Amer) 52 L Glucose 136 H AST 16 L ALT 14 L Creatine Kinase < 20 L Albumin 3.4 L - Diagnostic Test Radiology reviewed: Reports reviewed Radiology results interpreted by me: 08/30/18 09:22 Acute Abdomen Series 08/30/18 06:21 IMPRESSION: 1. No acute abnormality of the lungs. Unchanged elevation of left hemidiaphragm with scarring or atelectasis. Cardiomegaly. No new airspace opacity. 2. The stomach is gas distended. 3. Otherwise nonobstructive pattern of bowel gas. Large stool balls in the rectum. No free air in the abdomen. - EKG Interpretation by Me EKG shows normal: Sinus rhythm Rate: Normal Rhythm: NSR Heart block present: 1st Degree When compared to previous EKG there are: No significant change Discharge - Discharge Clinical Impression: Upper GI bleed Condition: Good Disposition: ADMITTED INPATIENT Admitting Provider: Heather Unit Admitted: Telemetry Referrals: ISAIAS OSORIO MD [Primary Care Provider] - Follow up as needed
--- NOTE | 2018-08-30 06:31 | EKG REPORT ---
SEVERITY:- ABNORMAL ECG - SINUS OR ECTOPIC ATRIAL RHYTHM FIRST DEGREE AV BLOCK CONSIDER ANTEROSEPTAL INFARCT : Confirmed by: Miles Meadows MD 30-Aug-2018 06:30:01
[2018-08-30 06:33] LABS: ABSOLUTE LYMPHOCYTES (AUTO) 1.1 10^3/uL (0.5-4.7); ABSOLUTE MONOCYTES (AUTO) 0.5 10^3/uL (0.1-1.4); ABSOLUTE NEUT (AUTO) 11.2 10^3/uL (1.7-8.2); BASOPHILS % (AUTO) 0.3 % (0-2); EOSINOPHILS % (AUTO) 0.1 % (0-6); HEMATOCRIT 38.2 % (37.9-51.0); HEMOGLOBIN 12.6 g/dL (13.5-17.0); LYMPHOCYTES % (AUTO) 8.4 % (13-45); MEAN CORPUSCULAR HEMOGLOBIN 29.2 pg (27.0-33.4); MEAN CORPUSCULAR HGB CONC 32.9 g/dL (32.0-36.0); MEAN CORPUSCULAR VOLUME 89 fl (80-97); MONOCYTES % (AUTO) 3.9 % (3-13); PLATELET COUNT 270 10^3/uL (150-450); RED BLOOD COUNT 4.31 10^6/uL (4.35-5.55); RED CELL DISTRIBUTION WIDTH 15.3 % (11.5-14.0); SEGMENTED NEUTROPHILS % (AUTO) 87.3 % (42-78); TOTAL CELLS COUNTED % (AUTO) 100 %; WHITE BLOOD COUNT 12.8 10^3/uL (4.0-10.5)
[2018-08-30 06:39] LABS: INTERNATIONAL RATION (INR) 1.03; PROTHROMBIN TIME 13.5 SEC (11.4-15.4)
[2018-08-30 06:40] LABS: PARTIAL THROMBOPLASTIN TIME 28.6 SEC (23.5-35.8)
[2018-08-30 06:52] LABS: ALANINE AMINOTRANSFERASE 14 U/L (21-72); ALBUMIN 3.4 g/dL (3.5-5.0); ALKALINE PHOSPHATASE 53 U/L (38-126); ANION GAP 7 (5-19); ASPARTATE AMINO TRANSFERASE 16 U/L (17-59); BILIRUBIN,DIRECT 0.2 mg/dL (0.0-0.4); BILIRUBIN,TOTAL 0.4 mg/dL (0.2-1.3); BLOOD UREA NITROGEN 23 mg/dL (7-20); CALCIUM 8.7 mg/dL (8.4-10.2); CARBON DIOXIDE 29 mmol/L (22-30); CHLORIDE 102 mmol/L (98-107); GLUCOSE 136 mg/dL (75-110); POTASSIUM 4.8 mmol/L (3.6-5.0); TOTAL PROTEIN 6.4 g/dL (6.3-8.2)
[2018-08-30 06:53] LABS: CREATINE KINASE < 20 U/L (55-170)
--- NOTE | 2018-08-30 08:21 | RADIOLOGY REPORT (SQ) ---
EXAM DESCRIPTION: ACUTE ABDOMEN SERIES COMPLETED DATE/TIME: 08/30/2018 7:34 am REASON FOR STUDY: abd pain COMPARISON: 08/15/2018 NUMBER OF VIEWS: Three views. TECHNIQUE: Frontal chest, supine abdomen and upright/decubitus abdomen radiographic images acquired. LIMITATIONS: None. FINDINGS: CHEST: Cardiomegaly. Unchanged elevation of the left hemidiaphragm. FREE AIR: None. No abnormal gas collections. BOWEL GAS PATTERN: The stomach is gas distended. Nonobstructive pattern. No dilated loops or air flu id levels. Large stool balls in the rectum. CALCIFICATIONS: No suspicious calcifications. HARDWARE: None in the abdomen. SOFT TISSUES: No gross mass or suggestion of organomegaly. BONES: No acute fracture. No worrisome bone lesions. OTHER: No other significant finding. IMPRESSION: 1. No acute abnormality of the lungs. Unchanged elevation of left hemidiaphragm with s carring or atelectasis. Cardiomegaly. No new airspace opacity. 2. The stomach is gas distended. 3. Otherwise nonobstructive pattern of bowel gas. Large stool balls in the rectum. No free air in the abdomen. TECHNICAL DOCUMENTATION: JOB ID: [id number] [employer]- All Rights Reserved Reading location - IP/workstation name: [email or web address]
[2018-08-30] MEDS ORDERED: DEXTROSE 40% GEL 15 GM TUBE PO PRN ×2 (09:48)
[2018-08-30] MEDS ORDERED: DEXTROSE 50%-WATER 25 GM/50 ML DISP.SYRIN IV PRN ×2 (09:48)
[2018-08-30] MEDS ORDERED: GLUCAGON,HUMAN RECOMB 1 MG INJ SUBCUT PRN (09:48)
[2018-08-30] MEDS: POTASSI CL 20 MEQ/D5-1/2NS 1L 1,000 ML IV PRN (10:24)
[2018-08-30] MEDS: PANTOPRAZOLE SODIUM 40 MG VIAL IV SCH ×2 (10:24→22:58)
--- NOTE | 2018-08-30 19:53 | PDOC H&P ---
History of Present Illness Admission Date/PCP: 08/30/18 09:29 ISAIAS OSORIO MD History of Present Illness: BETTY RODRIGUEZ is a 87 year old male,Patient is well-known to me he [facility] for evaluation of vomiting coffee-ground vomitus there was no passage of melanotic stool. Past Medical History Cardiac Medical History: Reports: Atrial Fibrillation, Hypertension Pulmonary Medical History: Reports: Bronchitis, Pneumonia GI Medical History: Reports: Gastroesophageal Reflux Disease Musculoskeltal Medical History: Reports: Arthritis - legs, knees Psychiatric Medical History: Reports: Depression Hematology: Reports: Anemia - Iron deficiency Past Surgical History Past Surgical History: Reports: Appendectomy, Tonsillectomy Social History Smoking Status: Former Smoker Frequency of Alcohol Use: None Hx Recreational Drug Use: No Drugs: None Hx Prescription Drug Abuse: No - Advance Directive Resuscitation Status: Do Not Resuscitate Family History Family History: Reviewed & Not Pertinent Parental Family History Reviewed: Yes Children Family History Reviewed: Yes Sibling(s) Family History Reviewed.: Yes Medication/Allergy Home Medications: Acetaminophen [Tylenol 325 mg Tablet] 650 mg PO QHS 09/29/17 Aripiprazole [Abilify 2 mg Tablet] 1 mg PO DAILY 09/29/17 Ascorbic Acid [Vitamin C 500 mg Tablet] 500 mg PO BID 09/29/17 Carvedilol [Coreg 25 mg Tablet] 12.5 mg PO Q12 09/29/17 Citalopram Hydrobromide [Celexa 20 mg Tablet] 20 mg PO DAILY 09/29/17 Ferrous Sulfate [Feosol 325 mg Tablet] 325 mg PO DAILY 09/29/17 Finasteride [Proscar 5 mg Tablet] 5 mg PO DAILY 09/29/17 Memantine HCl [Namenda 10 mg Tablet] 10 mg PO Q12 09/29/17 Omeprazole 40 mg PO DAILY 09/29/17 Tamsulosin HCl [Flomax 0.4 mg Cap.sr] 0.4 mg PO DAILY 09/29/17 Thiamine HCl [Vitamin B-1] 100 mg PO DAILY 09/29/17 Melatonin [Melatonin 3 mg Tablet] 3 mg PO QHS 08/09/18 Polyvinyl Alcohol [Liquitears 1.4% Ophth Soln 15 ml] 1 drop OU BID 08/09/18 Sennosides/Docusate 8.6-50 mg [Senna Plus Tablet] 2 tab PO QHS 08/09/18 Ipratropium/Albuterol Sulfate [Duoneb 3 ml Ampul] 3 ml [facility] [id number] vial.[facility] 08/22/18 Acetaminophen [Tylenol 325 mg Tablet] 650 mg PO Q6HP PRN 08/30/18 Calcium Carbonate [Os-Larry 500 mg Tablet (Oyster-Shell)] 500 mg PO QID 08/30/18 Dicyclomine HCl [Bentyl 10 mg Capsule] 10 mg PO Q6HP PRN 08/30/18 Ergocalciferol (Vitamin D2) [Drisdol 50,000 Unit (1.25MG) Capsule] 50,000 unit PO Iqbal@1000 08/30/18 Mirabegron [Myrbetriq] 25 mg PO DAILY 08/30/18 Allergies/Adverse Reactions: Sulfa (Sulfonamide Antibiotics) Allergy (Unknown, Verified 08/30/18 06:35) Penicillins Allergy (Verified 08/30/18 06:35) Review of Systems Eyes: ABSENT: visual disturbances Ears: ABSENT: hearing changes Cardiovascular: ABSENT: chest pain, dyspnea on exertion, edema, orthropnea, palpitations Respiratory: ABSENT: cough, hemoptysis Gastrointestinal: PRESENT: coffee ground emesis, vomiting Genitourinary: ABSENT: dysuria, hematuria Musculoskeletal: ABSENT: joint swelling Integumentary: ABSENT: rash, wounds Neurological: PRESENT: abnormal speech Psychiatric: ABSENT: anxiety, depression, homidical ideation, suicidal ideation Endocrine: ABSENT: cold intolerance, heat intolerance, menstrual abnormalities, polydipsia, polyuria Hematologic/Lymphatic: ABSENT: easy bleeding, easy bruising, lymphadenopathy Physical Exam Vital Signs: Temp Pulse Resp BP Pulse Ox 97.5 F 51 L 18 130/74 H 94 08/30/18 15:10 08/30/18 15:10 08/30/18 15:10 08/30/18 15:10 08/30/18 15:10 Intake & Output 08/29/18 08/30/18 08/31/18 06:59 06:59 06:59 Intake Total 0 Balance 0 Weight 74.7 kg General appearance: PRESENT: no acute distress Eye exam: PRESENT: PERRLA Ear exam: PRESENT: normal external ear exam Neck exam: PRESENT: full ROM Respiratory exam: PRESENT: clear to auscultation abisai Cardiovascular exam: PRESENT: RRR, +S1, +S2 Vascular exam: PRESENT: normal capillary refill GI/Abdominal exam: PRESENT: normal bowel sounds, soft Rectal exam: PRESENT: deferred Neurological exam: PRESENT: alert, CN II-XII grossly intact Psychiatric exam: PRESENT: appropriate affect, normal mood Skin exam: PRESENT: dry, intact, warm Results Laboratory Results: 08/30/18 06:15 08/30/18 06:15 08/30/18 08/30/18 08/30/18 06:15 06:15 06:15 WBC 12.8 H RBC 4.31 L Hgb 12.6 L Hct 38.2 MCV 89 MCH 29.2 MCHC 32.9 RDW 15.3 H Plt Count 270 Seg Neutrophils % 87.3 H Lymphocytes % 8.4 L Monocytes % 3.9 Eosinophils % 0.1 Basophils % 0.3 Absolute Neutrophils 11.2 H Absolute Lymphocytes 1.1 Absolute Monocytes 0.5 Absolute Eosinophils 0.0 Absolute Basophils 0.0 Sodium 137.7 Potassium 4.8 Chloride 102 Carbon Dioxide 29 Anion Gap 7 BUN 23 H Creatinine 1.30 H Est GFR ( Amer) > 60 Est GFR (Non-Af Amer) 52 L Glucose 136 H Calcium 8.7 Total Bilirubin 0.4 AST 16 L ALT 14 L Alkaline Phosphatase 53 Total Protein 6.4 Albumin 3.4 L Lipase 57.8 Blood Type A NEGATIVE Antibody Screen NEGATIVE 08/30/18 08/30/18 06:15 06:15 Creatine Kinase < 20 L Troponin I < 0.012 Impressions: Acute Abdomen Series 08/30/18 06:21 IMPRESSION: 1. No acute abnormality of the lungs. Unchanged elevation of left hemidiaphragm with scarring or atelectasis. Cardiomegaly. No new airspace opacity. 2. The stomach is gas distended. 3. Otherwise nonobstructive pattern of bowel gas. Large stool balls in the rectum. No free air in the abdomen. Assessment & Plan - Diagnosis (1) Upper gastrointestinal bleed Is this a current diagnosis for this admission?: Yes
[2018-08-30] MEDS ORDERED: (PENDING PHARMACY ID) (Thiamine Hcl [Vitamin B-1] 100 MG) PO SCH (20:30)
[2018-08-30] MEDS: TAMSULOSIN HCL 0.4 MG CAP.SR.24H PO SCH (22:58)
[2018-08-30] MEDS: THIAMINE HCL 100 MG TABLET PO SCH (22:58)
[2018-08-30] MEDS: CITALOPRAM HYDROBROMIDE 20 MG TABLET PO SCH (22:58)
[2018-08-31] MEDS: POTASSI CL 20 MEQ/D5-1/2NS 1L 1,000 ML IV PRN ×2 (01:06→15:05)
[2018-08-31 05:05] LABS: ABSOLUTE EOSINOPHILS # (AUTO) 0.2 10^3/uL (0.0-0.6); ABSOLUTE LYMPHOCYTES (AUTO) 1.9 10^3/uL (0.5-4.7); ABSOLUTE MONOCYTES (AUTO) 0.6 10^3/uL (0.1-1.4); ABSOLUTE NEUT (AUTO) 4.2 10^3/uL (1.7-8.2); BASOPHILS % (AUTO) 0.4 % (0-2); EOSINOPHILS % (AUTO) 2.6 % (0-6); HEMATOCRIT 32.3 % (37.9-51.0); HEMOGLOBIN 10.7 g/dL (13.5-17.0); LYMPHOCYTES % (AUTO) 27.5 % (13-45); MEAN CORPUSCULAR HEMOGLOBIN 29.7 pg (27.0-33.4); MEAN CORPUSCULAR HGB CONC 33.2 g/dL (32.0-36.0); MEAN CORPUSCULAR VOLUME 89 fl (80-97); MONOCYTES % (AUTO) 8.7 % (3-13); PLATELET COUNT 219 10^3/uL (150-450); RED BLOOD COUNT 3.61 10^6/uL (4.35-5.55); RED CELL DISTRIBUTION WIDTH 15.3 % (11.5-14.0); SEGMENTED NEUTROPHILS % (AUTO) 60.8 % (42-78); TOTAL CELLS COUNTED % (AUTO) 100 %; WHITE BLOOD COUNT 6.9 10^3/uL (4.0-10.5)
[2018-08-31] MEDS: THIAMINE HCL 100 MG TABLET PO SCH (09:11)
[2018-08-31] MEDS: PANTOPRAZOLE SODIUM 40 MG VIAL IV SCH ×2 (09:11→21:47)
[2018-08-31] MEDS: TAMSULOSIN HCL 0.4 MG CAP.SR.24H PO SCH (09:11)
[2018-08-31] MEDS: CITALOPRAM HYDROBROMIDE 20 MG TABLET PO SCH (09:11)
[2018-08-31 09:42] LABS: ANION GAP 6 (5-19); BLOOD UREA NITROGEN 19 mg/dL (7-20); CALCIUM 8.5 mg/dL (8.4-10.2); CARBON DIOXIDE 25 mmol/L (22-30); CHLORIDE 107 mmol/L (98-107); GLUCOSE 117 mg/dL (75-110); POTASSIUM 4.9 mmol/L (3.6-5.0)
--- NOTE | 2018-08-31 19:39 | PDOC TRANSFER SUMMARY ---
General - Admit/Disc Date/PCP Admission Date/Primary Care Provider: 08/30/18 09:29 ISAIAS OSORIO MD Discharge Date: 08/31/18 - Discharge Diagnosis (1) Upper gastrointestinal bleed Is this a current diagnosis for this admission?: Yes - Additional Information Resuscitation Status: Do Not Resuscitate Home Medications: Acetaminophen [Tylenol 325 mg Tablet] 650 mg PO QHS 09/29/17 Aripiprazole [Abilify 2 mg Tablet] 1 mg PO DAILY 09/29/17 Ascorbic Acid [Vitamin C 500 mg Tablet] 500 mg PO BID 09/29/17 Carvedilol [Coreg 25 mg Tablet] 12.5 mg PO Q12 09/29/17 Citalopram Hydrobromide [Celexa 20 mg Tablet] 20 mg PO DAILY 09/29/17 Ferrous Sulfate [Feosol 325 mg Tablet] 325 mg PO DAILY 09/29/17 Finasteride [Proscar 5 mg Tablet] 5 mg PO DAILY 09/29/17 Memantine HCl [Namenda 10 mg Tablet] 10 mg PO Q12 09/29/17 Omeprazole 40 mg PO DAILY 09/29/17 Tamsulosin HCl [Flomax 0.4 mg Cap.sr] 0.4 mg PO DAILY 09/29/17 Thiamine HCl [Vitamin B-1] 100 mg PO DAILY 09/29/17 Melatonin [Melatonin 3 mg Tablet] 3 mg PO QHS 08/09/18 Polyvinyl Alcohol [Liquitears 1.4% Ophth Soln 15 ml] 1 drop OU BID 08/09/18 Sennosides/Docusate 8.6-50 mg [Senna Plus Tablet] 2 tab PO QHS 08/09/18 Ipratropium/Albuterol Sulfate [Duoneb 3 ml Ampul] 3 ml NEB [id number] vial.neb 08/22/18 Acetaminophen [Tylenol 325 mg Tablet] 650 mg PO Q6HP PRN 08/30/18 Calcium Carbonate [Os-Larry 500 mg Tablet (Oyster-Shell)] 500 mg PO QID 08/30/18 Dicyclomine HCl [Bentyl 10 mg Capsule] 10 mg PO Q6HP PRN 08/30/18 Ergocalciferol (Vitamin D2) [Drisdol 50,000 Unit (1.25MG) Capsule] 50,000 unit PO Iqbal@1000 08/30/18 Mirabegron [Myrbetriq] 25 mg PO DAILY 08/30/18 History of Present Illness Admission Date/PCP: 08/30/18 09:29 ISAIAS OSORIO MD History of Present Illness: He was admitted for the management of upper GI bleed, he had episode of passage of coffee-ground vomitus in the long term. He was managed conservatively treated with intravenous Protonix there was no witnessed vomiting in the hospital there was no passage of black tarry stool consultation was requested from surgery it was felt that EGD is not needed at this time. Physical Exam Vital Signs: Temp Pulse Resp BP Pulse Ox 98.1 F 58 L 20 126/76 H 96 08/31/18 15:08 08/31/18 15:08 08/31/18 15:08 08/31/18 15:08 08/31/18 15:08 Intake & Output 08/30/18 08/31/18 09/01/18 06:59 06:59 06:59 Intake Total 1000 1219 Balance 1000 1219 Weight 74.6 kg General appearance: PRESENT: no acute distress Head exam: PRESENT: atraumatic, normocephalic Eye exam: PRESENT: conjunctiva pink, EOMI, PERRLA Ear exam: PRESENT: normal external ear exam Mouth exam: PRESENT: moist, tongue midline Neck exam: ABSENT: carotid bruit, JVD, lymphadenopathy, thyromegaly Respiratory exam: PRESENT: clear to auscultation abisai Cardiovascular exam: PRESENT: RRR, +S1, +S2 Pulses: PRESENT: normal dorsalis pedis pul Vascular exam: PRESENT: normal capillary refill GI/Abdominal exam: PRESENT: normal bowel sounds, soft Rectal exam: PRESENT: deferred Extremities exam: PRESENT: full ROM Neurological exam: PRESENT: alert, CN II-XII grossly intact. ABSENT: motor sensory deficit Psychiatric exam: PRESENT: appropriate affect, normal mood Skin exam: PRESENT: dry, intact, warm. ABSENT: cyanosis, rash Results Laboratory Results: 08/31/18 04:25 08/31/18 04:25 08/31/18 08/31/18 04:25 04:25 WBC 6.9 RBC 3.61 L Hgb 10.7 L Hct 32.3 L MCV 89 MCH 29.7 MCHC 33.2 RDW 15.3 H Plt Count 219 Seg Neutrophils % 60.8 Lymphocytes % 27.5 Monocytes % 8.7 Eosinophils % 2.6 Basophils % 0.4 Absolute Neutrophils 4.2 Absolute Lymphocytes 1.9 Absolute Monocytes 0.6 Absolute Eosinophils 0.2 Absolute Basophils 0.0 Sodium 138.3 Potassium 4.9 Chloride 107 Carbon Dioxide 25 Anion Gap 6 BUN 19 Creatinine 1.23 Est GFR ( Amer) > 60 Est GFR (Non-Af Amer) 55 L Glucose 117 H Calcium 8.5 08/30/18 08/30/18 06:15 06:15 Creatine Kinase < 20 L Troponin I < 0.012 Impressions: Acute Abdomen Series 08/30/18 06:21 IMPRESSION: 1. No acute abnormality of the lungs. Unchanged elevation of left hemidiaphragm with scarring or atelectasis. Cardiomegaly. No new airspace opacity. 2. The stomach is gas distended. 3. Otherwise nonobstructive pattern of bowel gas. Large stool balls in the rectum. No free air in the abdomen. Qualifiers - * PATIENT BEING DISCHARGED WITH ANY OF THE FOLLOWING DIAGNOSIS: No VTE patient discharged on overlapping Therapy?: No Reason(s) for not prescribing Overlap Therapy:: Not indicated Stroke Pt being discharged on Anti-thrombolytic therapy?: No Reason(s) for not prescribing Anti-thrombolytic therapy:: Not indicated Stroke Pt being discharged on Anti-coagulation therapy?: No Reason(s) for not prescribing Anti-coagulation therapy:: Not indicated Stroke Pt being discharged on Statins?: No Reason(s) for not prescribing Statins therapy:: Not indicated GA Pt being discharged on Aspirin therapy?: No Reason(s) for not prescribing Aspirin therapy:: Not indicated GA Pt being discharged on Statins?: No Reason(s) for not prescribing Statin therapy:: Not indicated GA Pt discharged ACEI/ARBS?: No Reason(s) for not prescribing ACEI/ARBS:: Not indicated Acute Heart Failure - Is this a Heart Failure Patient?: No e) For LVEF <35%, discharged on Aldosterone antagonist?: N/A (LVEF > or = 35%)
[2018-09-01] MEDS: POTASSI CL 20 MEQ/D5-1/2NS 1L 1,000 ML IV PRN (05:15)
[2018-09-01 05:38] LABS: ABSOLUTE EOSINOPHILS # (AUTO) 0.2 10^3/uL (0.0-0.6); ABSOLUTE LYMPHOCYTES (AUTO) 2.1 10^3/uL (0.5-4.7); ABSOLUTE MONOCYTES (AUTO) 0.7 10^3/uL (0.1-1.4); ABSOLUTE NEUT (AUTO) 4.3 10^3/uL (1.7-8.2); BASOPHILS % (AUTO) 0.4 % (0-2); EOSINOPHILS % (AUTO) 2.5 % (0-6); HEMOGLOBIN 10.8 g/dL (13.5-17.0); LYMPHOCYTES % (AUTO) 28.5 % (13-45); MEAN CORPUSCULAR HEMOGLOBIN 29.9 pg (27.0-33.4); MEAN CORPUSCULAR HGB CONC 33.8 g/dL (32.0-36.0); MEAN CORPUSCULAR VOLUME 89 fl (80-97); MONOCYTES % (AUTO) 9.3 % (3-13); PLATELET COUNT 219 10^3/uL (150-450); RED BLOOD COUNT 3.61 10^6/uL (4.35-5.55); RED CELL DISTRIBUTION WIDTH 15.5 % (11.5-14.0); SEGMENTED NEUTROPHILS % (AUTO) 59.3 % (42-78); TOTAL CELLS COUNTED % (AUTO) 100 %; WHITE BLOOD COUNT 7.2 10^3/uL (4.0-10.5)
[2018-09-01] MEDS: THIAMINE HCL 100 MG TABLET PO SCH (09:27)
[2018-09-01] MEDS: TAMSULOSIN HCL 0.4 MG CAP.SR.24H PO SCH (09:27)
[2018-09-01] MEDS: PANTOPRAZOLE SODIUM 40 MG VIAL IV SCH (09:27)
[2018-09-01] MEDS: CITALOPRAM HYDROBROMIDE 20 MG TABLET PO SCH (09:27)
[2018-09-01 16:19] VITALS: BP 135/82
== END 2018-09-01 17:50 ==
LOC: ER 05:57 → UNDOADMIN 09:29 → INTOOBSV 09:29 → EH 09:29 → 3N 12:50
PROVIDERS: ADMIT Internal Medicine; ATTEND Internal Medicine
DX: K92.2 Gastrointestinal hemorrhage, unspecified (principal); K21.9 Gastro-esophageal reflux disease without esophagitis; I48.91 Unspecified atrial fibrillation; I10 Essential (primary) hypertension; R47.9 Unspecified speech disturbances; I44.0 Atrioventricular block, first degree; Z90.49 Acquired absence of other specified parts of digestive tract; Z87.891 Personal history of nicotine dependence; Z79.899 Other long term (current) drug therapy; Z66 Do not resuscitate; Z87.19 Personal history of other diseases of the digestive system
CPT/HCPCS: 93005; 99285; 96374; 96375; 86900; 86901; 36415 ×3; 86850; 82550; 83690; 85025 ×3; 85610; 85730; 80048; 80053; 84484; 74022; 93010; A9270 ×9; J3480 ×3; C9113 ×3; J2405; S0028; G0378; S0164